=== PATIENT | male | born 1940 | race Caucasian/White ===

== ENCOUNTER → 2017-06-21 | Outpatient (CLI) | payer OTHER ==
[~2017-06-21] MED LIST: ASPEC325 PO; ATEN50TA8 PO; GADAVIST IV PRN; GLC500 PO; LOSA1TAB38 PO; METAMUCIL PO; MULT-506 PO; NITR0.4D6 SL; OMEG10007 PO; TAMS0.4C59 PO; ZCRUNK PO
--- NOTE | 2017-06-21 15:34 | DIAGNOSTIC IMAGING REPORT ---
CERVICAL SPINE MRI HISTORY: WEAKNESS,NUMBNESS,MEMORY CHANGE, TECHNIQUE: Multiplanar multisequence MRI of the cervical spine was performed without the use of contrast. COMPARISON STUDY: None. FINDINGS: No fracture or subluxation. The cervical spine cord demonstrates a normal signal intensity. Prevertebral soft tissues and the C1-C2 interval are intact. Mild disc space at C3-C4, C5-C6, and C6-C7 with small endplate osteophytes. 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 Small hemangioma at T2 is noted. The posterior fossa is unremarkable. C2-C3: No significant central canal or neural foraminal narrowing. C3-C4: Broad-based posterior disc osteophyte complex which abuts but does not significantly deform the anterior cord. There is also severe bilateral neural foraminal narrowing. C4-C5: No central canal or right-sided neural foraminal narrowing. There is moderate left neural foraminal narrowing. C5-C6: Broad-based posterior disc bulge resulting in partial effacement of the anterior thecal sac without cord deformity. There is moderate right and severe left neural foraminal narrowing. C6-C7: Small broad-based posterior disc bulge resulting in partial effacement of the anterior thecal sac without cord deformity. There is moderate bilateral neural foraminal narrowing. C7-T1: No significant central canal or neural foraminal narrowing. IMPRESSION: 1. Multilevel cervical spondylosis as described above with mild central canal narrowing most pronounced at the C3-C4 level. This demonstrates a broad-based posterior disc bulge which abuts but does not deform the anterior cord. 2. Multilevel bilateral neural foraminal narrowing as described above. Electronically signed by: Jose R Vidal M.D. 06/21/2017 3:33 PM Dictated Date/Time: 06/21/2017 3:26 PM
--- NOTE | 2017-06-21 16:33 | DIAGNOSTIC IMAGING REPORT ---
MRI OF THE BRAIN WITHOUT AND WITH IV CONTRAST CLINICAL HISTORY: Weakness, numbness and memory change. COMPARISON STUDY: No previous studies for comparison. TECHNIQUE: Utilizing a 1.5 Solange magnet and dedicated coil, multiplanar, multiecho imaging of the brain was performed pre and postcontrast administration. IV administration of 8.9 mL of Gadavist contrast was uneventful. FINDINGS: There are no foci of restricted diffusion. No acute intracranial hemorrhage, midline shift or mass effect is present. Basilar cisterns are patent. There are no extra-axial collections. Flow-voids in the major intracranial vessels are present. No intracranial masses identified. There is no pathologic enhancement. Note is made of moderate atrophy and scattered white matter T2 hyperintense foci which suggest mild small vessel disease. Calvarial signal is maintained. A small amount of fluid within the right mastoid air cells is noted. There is mild polypoid mucosal thickening of the maxillary sinuses. IMPRESSION: 1. No acute intracranial findings. 2. No intracranial mass or pathologic enhancement. 3. Moderate atrophy and mild small vessel disease. 4. Small amount of fluid within the right mastoid air cells. Electronically signed by: Jimbo Lazo M.D. 06/21/2017 4:32 PM Dictated Date/Time: 06/21/2017 4:27 PM
== END | disposition home or self-care (01) ==
LOC: C.MRI 13:57
DX: R53.1 Weakness (principal); R20.0 Anesthesia of skin; R41.3 Other amnesia; M47.812 Spondylosis without myelopathy or radiculopathy, cervical region

== ENCOUNTER 2023-03-27 18:59 | Inpatient (IN) ==
[2023-03-27] MEDS ORDERED: SODIUM CHLORIDE 0.9% 1,000 ML IV SCH (19:15)
--- NOTE | 2023-03-27 19:18 | Emergency Department Note ---
Impression & Plan Septic shock, Acute UTI, Hematuria, Weakness, Confusion ED Provider Note Provider: Bernard Mendoza MD DATE OF SERVICE: 03/27/2023 CHIEF COMPLAINT: Blood in urine, confusion HISTORY OF PRESENT ILLNESS: Patient is a 82-year-old gentleman history of type 2 diabetes, hypertension, prostate issues presenting via ambulance from [place] where he resides. Patient evidently around 5 PM was noted some hematuria and not to be himself. Patient upon arrival is a bit difficult to get a good history from. Denies any pain currently. Denies any nausea or vomiting. Denies any breathing issues. Guerrero catheter in place upon arrival and appears to be some brownish to slightly dark red urine present but not kamryn bright red blood in Guerrero bag. There is no trauma history reported. Is febrile upon arrival. Unable to tell me if he had dinner yet. Does confirm from our records it appears Dr. Grewal is his urologist. EMS reported the patient recently had a Guerrero catheter placed by urology. later arrives and states that around 4 PM was actually when he started to be bit confused about what was on TV and having some slurred speech and not talking to her right. They were just at the urologist office around 3 PM this afternoon had a Guerrero change at the time by Dr. Grewal. Patient had some hematuria during that evidently during cystoscopy there had inflammation of the prostate. Again around 4 began to be somewhat confused and have speech issues and developed the describes as shaking/rigors. This lasted some time and he felt warm. She reports now he is speaking much better although still a bit off. PAST MEDICAL HISTORY: As noted above MEDICATIONS: Reviewed medications includes aspirin Plavix SOCIAL HISTORY: , lives at [place] currently PHYSICAL EXAM: GENERAL: alert and oriented to person but not a good historian in no acute distress on stretcher Head: normocephalic and atraumatic EYES: No injection, discharge or icterus. PERRL, EOMI. NECK: Trachea midline. Supple. ENT: Mucous membranes pink and moist. LUNGS: Airway patent. No retractions. Breath sounds clear HEART: Regular tachycardic rate and rhythm. No chest wall tenderness ABDOMEN: Soft and non-tender, without guarding or rebound. Guerrero catheter in place with about 50 mL of burgundy urine present without clots noted. SKIN: Acyanotic, warm, dry, without rashes EXTREMITIES: Without swelling, tenderness or deformity NEUROLOGICAL: No focal deficits. No aphasia. No facial droop may be some very slight dysarthria. Tongue midline. Good strength and no pronator drift in the arms. Normal sensation in the arms and legs. Does report due to prior surgery can lift his left leg and really has difficulty lifting the right leg on exam either in the bed. EK bpm sinus tachycardia. No PVC or PAC. No acute ST segment elevation or depression with a QTc of 420 CONTINUOUS CARDIAC MONITORING: was ordered and showed a heart rate of 90s-130s bpm in sinus tachycardia and normal sinus rhythm (satellite project site monitor double counting T waves on auto collected data later improved when changing lead on the monitor performed by myself) 1 view chest x-ray per my interpretation: No evidence of pneumonia or pleural effusion/pulmonary edema. No free under the diaphragm noted. Patient's laboratory studies and imaging reviewed. Differential includes Infection, kidney stone, acute renal failure, sepsis, dehydration, metabolic abnormality, hypo/hyperglycemia, electrolyte disturbance, anemia, hypoxia, cardiac sources, intracerebral event, toxicologic, neurologic, as well as other pathologies. IMPRESSION/MEDICAL DECISION MAKING: Patient not hypoxic. Does not seem to have focal deficits and lower suspicion for CVA. Symptoms started around 4 PM and more than 3 hours now since onset. Hematuria in the setting of recent Guerrero placement as well as use of aspirin Plavix could be from traumatic placement. Not having significant abdominal or flank pain but kidney stone does maintain on the differential. Temperature here is concerning for possible infectious etiology. Fairly benign abdomen on exam but we will complete a CT here to look for possible intra-abdominal or renally related issues such as kidney stone or hydronephrosis/obstruction. Blood work and cultures ordered. Will complete a CT of the head but lower suspicion for CVA given the more generalized symptoms he is experiencing. Do not feel thrombolytics are indicated given this. reported recent Guerrero change in the developing rigors with a fever does relay some concern that he may be transiently bacteremic possibly infected after the Guerrero change. Since this just happened earlier today we will not immediately replace. Will see if there is any obstructive findings on imaging. [id number] blood work shows evidence of significant renal dysfunction. Noncontrast CT scan of the abdomen pelvis ordered. Lactate elevated 3.5. Blood pressure improving with IV fluid boluses here and 3 L normal saline ordered more than 30 mg/kg of body weight. Tylenol ordered for fever. Will give broad- spectrum antibiotics given concerns and Zosyn ordered. Blood cultures have been obtained. Urinalysis returns grossly positive both for blood and likely infection. Chemistries returned with some hyponatremia of 128 again receiving IV fluid for resuscitation here. Creatinine much higher than baseline 3.5 and again receiving fluids. Magnesium somewhat low as well but will not aggressively resuscitate given the tenuous blood pressures. CBC returns with slightly improved anemia 11.7. Platelet count has decreased and is now only 73. Slight leukopenia 4.5 noted. Troponin incidentally noted to be minimally elevated at [address] head and CT abdomen pelvis obtained. Radiology reports reviewed without findings of hydronephrosis or kidney stone. Bladder appears decompressed. CT of the head without reported acute intracranial abnormality. Respiratory viral panel negative. Procalcitonin returns elevated 167. Consistent with severe infection and septic shock picture. Blood pressure continues to be somewhat tenuous while receiving his 3 L of IV fluid resuscitation. Will start on low-dose peripheral norepinephrine for blood pressure support. Has 3 peripheral IVs. Seems consistent likely with sepsis of urinary origin. Again received broad-spectrum Zosyn. Discussed and updated . Discussed with the [facility] hospitalist team for admission. Patient does not appear to be significant encephalopathic and easily awakens when talked to. Will give hydrocortisone given his hypotension and increasing norepinephrine dosing. Lactate slightly improving on repeat of 2.7. Repeat high-sensitivity troponin also trending somewhat improved. Transferred to ICU DIAGNOSIS: Hematuria, septic shock, confusion, acute UTI DISPOSITION: Hospitalist will evaluate Patient was agreeable with this plan. Critical Care I have personally spent 59 minutes of critical care time in the direct management of this patient. This includes bedside care, interpretation of diagnostic studies, and testing, discussion with consultants, patient, and family members, and other required patient management activities. These 59 minutes is in excess of all separately billable procedures. Past Med/Surg History Medical History (Updated 03/27/23 @ 20:27 by Bernard Mendoza M.D.) Diabetic peripheral neuropathy associated with type 2 diabetes mellitus Dyslipidemia Essential hypertension Gait disturbance Other specified myopathies Proximal leg weakness Type 2 diabetes mellitus Social History Smoking Status: Never smoker Second Hand Exposure: No; Do You Dip or Chew Tobacco: No; Hx Alcohol Use: No Hx Substance Use: No Preferred Language: Honduran Current Living Situation: Spouse current occupation: owns [employer] Feels Safe at Home: Yes Allergies Allergies Allergy/AdvReac Type Severity Reaction Status Date / Time atorvastatin Allergy Intermediate muscle Verified 03/28/22 14:59 cramps pregabalin Allergy Intermediate constipatio Verified 03/28/22 14:59 n simvastatin Allergy Intermediate muscle Verified 03/28/22 14:59 cramps Home Meds Home Medications Medication Instructions Recorded Confirmed losartan 100 mg tablet 100 mg PO DAILY 11/30/18 03/27/23 metformin 1,000 mg tablet 1,000 mg PO QDB 11/30/18 03/27/23 nitroglycerin 0.4 mg sublingual 0.4 mg sublingual UD PRN Chest Pain 11/30/18 03/27/23 tablet tamsulosin 0.4 mg capsule 0.4 mg PO DAILY 11/30/18 03/27/23 atenolol 50 mg tablet 50 mg PO Q12 05/22/19 03/27/23 finasteride 5 mg tablet 5 mg PO DAILY 03/28/22 03/27/23 amitriptyline 50 mg tablet 50 mg PO HS 03/27/23 03/27/23 aspirin 81 mg tablet,delayed 81 mg PO DAILY 03/27/23 03/27/23 release clopidogrel 75 mg tablet 75 mg PO DAILY 03/27/23 03/27/23 docusate sodium 100 mg capsule 100 mg PO BID 03/27/23 03/27/23 evolocumab 420 mg/3.5 mL 420 mg subcut MONTHLY 03/27/23 03/27/23 subcutaneous wearable injector (Repatha Pushtronex) ferrous sulfate 325 mg (65 mg 325 mg PO DAILY 03/27/23 03/27/23 iron) tablet gabapentin 300 mg capsule 300 mg PO BIDM 03/27/23 03/27/23 gabapentin 300 mg capsule 600 mg PO HS 03/27/23 03/27/23 hydroxyzine pamoate 50 mg capsule 50 mg PO QID PRN Anxiety 03/27/23 03/27/23 naloxone 4 mg/actuation nasal spray 1 spray intranasal UD PRN Opioid 03/27/23 03/27/23 Overdose ondansetron HCl 4 mg tablet 4 mg PO Q4 PRN nausea/vomiting 03/27/23 03/27/23 oxycodone 5 mg tablet 5 mg PO QID PRN pain scale 7-10 03/27/23 03/27/23 oxymetazoline 0.05 % nasal mist 2 spray intranasal BID PRN Nasal 03/27/23 03/27/23 (Afrin (oxymetazoline)) Congestion pantoprazole 40 mg tablet,delayed 40 mg PO HS 03/27/23 03/27/23 release polyethylene glycol 3350 17 17 g PO DAILY PRN Constipation 03/27/23 03/27/23 gram/dose oral powder (Miralax) sennosides 8.6 mg tablet (senna) 17.2 mg PO HS 03/27/23 03/27/23 sennosides 8.6 mg-docusate sodium 1 tab-cap PO .WITH LUNCH PRN 03/27/23 03/27/23 50 mg tablet (Senna Plus) Constipation sodium chloride 0.65 % nasal spray 1 spray intranasal .EVERY 3 HOURS 03/27/23 03/27/23 aerosol (Saline Mist) W/A Results & Data (ED) Vital Signs Vital Signs - 24 hr 03/27/23 19:08 03/27/23 19:08 03/27/23 19:09 Temperature Temperature Source Pulse Rate 113 H 113 H Pulse Rate from SpO2 Sensor Respiratory Rate 19 Respiratory Effort / Characteristics Respiratory Depth Blood Pressure 83/54 L Blood Pressure Mean 60 Blood Pressure Position Pulse Oximetry Oxygen Delivery Method Sepsis Recent Fever Within 48 Hours Sepsis New/Unexplained Change in Mental Status Sepsis Action Taken by Nursing 03/27/23 19:10 03/27/23 19:15 03/27/23 19:19 Temperature Temperature Source Pulse Rate 112 H 112 H 122 H Pulse Rate from SpO2 Sensor 111 H Respiratory Rate 29 H 30 H 27 H Respiratory Effort / Characteristics Respiratory Depth Blood Pressure Blood Pressure Mean Blood Pressure Position Pulse Oximetry 92 Oxygen Delivery Method Sepsis Recent Fever Within 48 Hours Sepsis New/Unexplained Change in Mental Status Sepsis Action Taken by Nursing 03/27/23 19:19 03/27/23 19:20 03/27/23 19:21 Temperature Temperature Source Pulse Rate 147 H 187 H Pulse Rate from SpO2 Sensor 108 H 111 H Respiratory Rate 20 22 Respiratory Effort / Characteristics Respiratory Depth Blood Pressure 85/46 L Blood Pressure Mean 60 Blood Pressure Position Pulse Oximetry 92 90 Oxygen Delivery Method Sepsis Recent Fever Within 48 Hours Sepsis New/Unexplained Change in Mental Status Sepsis Action Taken by Nursing 03/27/23 19:21 03/27/23 19:22 03/27/23 19:23 Temperature 38.2 C H Temperature Source Oral Pulse Rate 113 H Pulse Rate from SpO2 Sensor Respiratory Rate 29 H Respiratory Effort / Characteristics Non-Labored Spontaneous Respiratory Depth Blood Pressure 77/50 L 83/54 L Blood Pressure Mean 64 63 Blood Pressure Position Semi-fowlers Pulse Oximetry 92 93 Oxygen Delivery Method Room Air Room Air Sepsis Recent Fever Within 48 Hours Yes Sepsis New/Unexplained Change in Mental Status Yes Sepsis Action Taken by Nursing Physician Notified 03/27/23 19:25 03/27/23 19:25 03/27/23 19:27 Temperature Temperature Source Pulse Rate 200 H Pulse Rate from SpO2 Sensor 107 H Respiratory Rate 29 H Respiratory Effort / Characteristics Respiratory Depth Blood Pressure 62/51 L 99/51 L Blood Pressure Mean 54 57 Blood Pressure Position Pulse Oximetry 92 Oxygen Delivery Method Sepsis Recent Fever Within 48 Hours Sepsis New/Unexplained Change in Mental Status Sepsis Action Taken by Nursing 03/27/23 19:27 03/27/23 19:27 03/27/23 19:29 Temperature Temperature Source Pulse Rate 175 H Pulse Rate from SpO2 Sensor 100 H Respiratory Rate 26 H Respiratory Effort / Characteristics Respiratory Depth Blood Pressure 99/51 L 90/68 L Blood Pressure Mean 57 77 Blood Pressure Position Pulse Oximetry 99 Oxygen Delivery Method Sepsis Recent Fever Within 48 Hours Sepsis New/Unexplained Change in Mental Status Sepsis Action Taken by Nursing 03/27/23 19:29 03/27/23 19:30 03/27/23 19:30 Temperature Temperature Source Pulse Rate 180 H 211 H Pulse Rate from SpO2 Sensor 114 H 110 H Respiratory Rate 22 22 Respiratory Effort / Characteristics Respiratory Depth Blood Pressure 93/56 L Blood Pressure Mean 68 Blood Pressure Position Pulse Oximetry 92 90 Oxygen Delivery Method Sepsis Recent Fever Within 48 Hours Sepsis New/Unexplained Change in Mental Status Sepsis Action Taken by Nursing 03/27/23 19:35 03/27/23 19:35 03/27/23 19:40 Temperature Temperature Source Pulse Rate 149 H 134 H Pulse Rate from SpO2 Sensor Respiratory Rate 25 H 24 Respiratory Effort / Characteristics Respiratory Depth Blood Pressure 95/56 L Blood Pressure Mean 73 Blood Pressure Position Pulse Oximetry Oxygen Delivery Method Sepsis Recent Fever Within 48 Hours Sepsis New/Unexplained Change in Mental Status Sepsis Action Taken by Nursing 03/27/23 19:40 03/27/23 19:45 03/27/23 19:45 Temperature Temperature Source Pulse Rate 161 H Pulse Rate from SpO2 Sensor 107 H Respiratory Rate 30 H Respiratory Effort / Characteristics Respiratory Depth Blood Pressure 90/58 L 96/63 L Blood Pressure Mean 64 72 Blood Pressure Position Pulse Oximetry 94 Oxygen Delivery Method Sepsis Recent Fever Within 48 Hours Sepsis New/Unexplained Change in Mental Status Sepsis Action Taken by Nursing 03/27/23 19:50 03/27/23 20:03 03/27/23 20:04 Temperature Temperature Source Oral Pulse Rate 142 H Pulse Rate from SpO2 Sensor 109 H Respiratory Rate 22 Respiratory Effort / Characteristics Respiratory Depth Normal Blood Pressure 78/59 L Blood Pressure Mean 64 Blood Pressure Position Pulse Oximetry 93 Oxygen Delivery Method Sepsis Recent Fever Within 48 Hours Sepsis New/Unexplained Change in Mental Status Sepsis Action Taken by Nursing 03/27/23 20:04 03/27/23 20:05 03/27/23 20:05 Temperature Temperature Source Pulse Rate 159 H 160 H Pulse Rate from SpO2 Sensor 106 H 106 H Respiratory Rate 26 H Respiratory Effort / Characteristics Respiratory Depth Blood Pressure 82/52 L Blood Pressure Mean 61 Blood Pressure Position Pulse Oximetry 95 95 Oxygen Delivery Method Sepsis Recent Fever Within 48 Hours Sepsis New/Unexplained Change in Mental Status Sepsis Action Taken by Nursing 03/27/23 20:07 03/27/23 20:07 03/27/23 20:10 Temperature Temperature Source Pulse Rate 183 H 171 H Pulse Rate from SpO2 Sensor 108 H 106 H Respiratory Rate 23 27 H Respiratory Effort / Characteristics Respiratory Depth Blood Pressure 83/54 L Blood Pressure Mean 60 Blood Pressure Position Pulse Oximetry 96 95 Oxygen Delivery Method Sepsis Recent Fever Within 48 Hours Sepsis New/Unexplained Change in Mental Status Sepsis Action Taken by Nursing 03/27/23 20:10 03/27/23 20:11 03/27/23 20:11 Temperature Temperature Source Pulse Rate 105 H Pulse Rate from SpO2 Sensor 106 H Respiratory Rate 29 H Respiratory Effort / Characteristics Respiratory Depth Blood Pressure 85/48 L 78/50 L Blood Pressure Mean 59 55 Blood Pressure Position Pulse Oximetry 94 Oxygen Delivery Method Sepsis Recent Fever Within 48 Hours Sepsis New/Unexplained Change in Mental Status Sepsis Action Taken by Nursing 03/27/23 20:15 03/27/23 20:20 03/27/23 20:25 Temperature Temperature Source Pulse Rate 103 H 101 H 100 H Pulse Rate from SpO2 Sensor 103 H 101 H 100 H Respiratory Rate 25 H 30 H 25 H Respiratory Effort / Characteristics Respiratory Depth Blood Pressure Blood Pressure Mean Blood Pressure Position Pulse Oximetry 93 92 94 Oxygen Delivery Method Sepsis Recent Fever Within 48 Hours Sepsis New/Unexplained Change in Mental Status Sepsis Action Taken by Nursing 03/27/23 20:30 03/27/23 20:31 03/27/23 20:31 Temperature Temperature Source Pulse Rate 100 H 100 H Pulse Rate from SpO2 Sensor 99 H 100 H Respiratory Rate 28 H 27 H Respiratory Effort / Characteristics Respiratory Depth Blood Pressure 80/52 L Blood Pressure Mean 60 Blood Pressure Position Pulse Oximetry 94 93 Oxygen Delivery Method Sepsis Recent Fever Within 48 Hours Sepsis New/Unexplained Change in Mental Status Sepsis Action Taken by Nursing 03/27/23 20:35 03/27/23 20:35 03/27/23 20:40 Temperature Temperature Source Pulse Rate 99 H Pulse Rate from SpO2 Sensor 99 H Respiratory Rate 35 H Respiratory Effort / Characteristics Respiratory Depth Blood Pressure 83/47 L 73/46 L Blood Pressure Mean 57 55 Blood Pressure Position Pulse Oximetry 92 Oxygen Delivery Method Sepsis Recent Fever Within 48 Hours Sepsis New/Unexplained Change in Mental Status Sepsis Action Taken by Nursing 03/27/23 20:40 03/27/23 20:45 03/27/23 20:45 Temperature Temperature Source Pulse Rate 101 H 100 H Pulse Rate from SpO2 Sensor 101 H 95 H Respiratory Rate 23 26 H Respiratory Effort / Characteristics Respiratory Depth Blood Pressure 69/47 L Blood Pressure Mean 57 Blood Pressure Position Pulse Oximetry 93 92 Oxygen Delivery Method Sepsis Recent Fever Within 48 Hours Sepsis New/Unexplained Change in Mental Status Sepsis Action Taken by Nursing 03/27/23 20:50 03/27/23 20:50 03/27/23 20:55 Temperature Temperature Source Pulse Rate 100 H 100 H Pulse Rate from SpO2 Sensor 103 H 100 H Respiratory Rate 25 H 27 H Respiratory Effort / Characteristics Respiratory Depth Blood Pressure 75/46 L Blood Pressure Mean 54 Blood Pressure Position Pulse Oximetry 90 94 Oxygen Delivery Method Sepsis Recent Fever Within 48 Hours Sepsis New/Unexplained Change in Mental Status Sepsis Action Taken by Nursing 03/27/23 20:55 03/27/23 21:00 03/27/23 21:00 Temperature Temperature Source Pulse Rate 101 H Pulse Rate from SpO2 Sensor 100 H Respiratory Rate 24 Respiratory Effort / Characteristics Respiratory Depth Blood Pressure 78/50 L 78/49 L Blood Pressure Mean 56 60 Blood Pressure Position Pulse Oximetry 92 Oxygen Delivery Method Sepsis Recent Fever Within 48 Hours Sepsis New/Unexplained Change in Mental Status Sepsis Action Taken by Nursing 03/27/23 21:05 03/27/23 21:05 03/27/23 21:10 Temperature Temperature Source Pulse Rate 101 H 101 H Pulse Rate from SpO2 Sensor 100 H 101 H Respiratory Rate 25 H 25 H Respiratory Effort / Characteristics Respiratory Depth Blood Pressure 78/50 L Blood Pressure Mean 56 Blood Pressure Position Pulse Oximetry 91 91 Oxygen Delivery Method Sepsis Recent Fever Within 48 Hours Sepsis New/Unexplained Change in Mental Status Sepsis Action Taken by Nursing 03/27/23 21:10 03/27/23 21:15 03/27/23 21:15 Temperature Temperature Source Pulse Rate 101 H Pulse Rate from SpO2 Sensor 100 H Respiratory Rate 24 Respiratory Effort / Characteristics Respiratory Depth Blood Pressure 83/49 L 83/49 L Blood Pressure Mean 56 55 Blood Pressure Position Pulse Oximetry 91 Oxygen Delivery Method Sepsis Recent Fever Within 48 Hours Sepsis New/Unexplained Change in Mental Status Sepsis Action Taken by Nursing 03/27/23 21:20 03/27/23 21:20 03/27/23 21:25 Temperature Temperature Source Pulse Rate 102 H Pulse Rate from SpO2 Sensor 102 H Respiratory Rate 26 H Respiratory Effort / Characteristics Respiratory Depth Blood Pressure 81/48 L 75/47 L Blood Pressure Mean 59 51 Blood Pressure Position Pulse Oximetry 95 Oxygen Delivery Method Sepsis Recent Fever Within 48 Hours Sepsis New/Unexplained Change in Mental Status Sepsis Action Taken by Nursing 03/27/23 21:25 03/27/23 21:30 03/27/23 21:30 Temperature Temperature Source Pulse Rate 100 H 102 H Pulse Rate from SpO2 Sensor 100 H 101 H Respiratory Rate 27 H 19 Respiratory Effort / Characteristics Respiratory Depth Blood Pressure 86/49 L Blood Pressure Mean 56 Blood Pressure Position Pulse Oximetry 94 93 Oxygen Delivery Method Sepsis Recent Fever Within 48 Hours Sepsis New/Unexplained Change in Mental Status Sepsis Action Taken by Nursing 03/27/23 21:35 03/27/23 21:35 03/27/23 21:40 Temperature Temperature Source Pulse Rate 101 H 100 H Pulse Rate from SpO2 Sensor 101 H 100 H Respiratory Rate 26 H 29 H Respiratory Effort / Characteristics Respiratory Depth Blood Pressure 87/50 L Blood Pressure Mean 56 Blood Pressure Position Pulse Oximetry 91 94 Oxygen Delivery Method Sepsis Recent Fever Within 48 Hours Sepsis New/Unexplained Change in Mental Status Sepsis Action Taken by Nursing 03/27/23 21:40 03/27/23 21:41 03/27/23 21:41 Temperature Temperature Source Pulse Rate 100 H Pulse Rate from SpO2 Sensor 100 H Respiratory Rate 23 Respiratory Effort / Characteristics Respiratory Depth Blood Pressure 73/46 L 73/46 L Blood Pressure Mean 51 52 Blood Pressure Position Pulse Oximetry 94 Oxygen Delivery Method Sepsis Recent Fever Within 48 Hours Sepsis New/Unexplained Change in Mental Status Sepsis Action Taken by Nursing 03/27/23 21:45 03/27/23 21:45 03/27/23 21:50 Temperature Temperature Source Pulse Rate 100 H 102 H Pulse Rate from SpO2 Sensor 99 H 101 H Respiratory Rate 27 H 28 H Respiratory Effort / Characteristics Respiratory Depth Blood Pressure 79/48 L Blood Pressure Mean 52 Blood Pressure Position Pulse Oximetry 95 96 Oxygen Delivery Method Sepsis Recent Fever Within 48 Hours Sepsis New/Unexplained Change in Mental Status Sepsis Action Taken by Nursing 03/27/23 21:50 03/27/23 21:55 03/27/23 21:55 Temperature Temperature Source Pulse Rate 102 H Pulse Rate from SpO2 Sensor 100 H Respiratory Rate 34 H Respiratory Effort / Characteristics Respiratory Depth Blood Pressure 98/54 L 94/53 L Blood Pressure Mean 69 59 Blood Pressure Position Pulse Oximetry 93 Oxygen Delivery Method Sepsis Recent Fever Within 48 Hours Sepsis New/Unexplained Change in Mental Status Sepsis Action Taken by Nursing 03/27/23 22:00 03/27/23 22:00 03/27/23 22:05 Temperature Temperature Source Pulse Rate 100 H 101 H Pulse Rate from SpO2 Sensor 100 H 101 H Respiratory Rate 28 H 31 H Respiratory Effort / Characteristics Respiratory Depth Blood Pressure 90/53 L Blood Pressure Mean 61 Blood Pressure Position Pulse Oximetry 95 94 Oxygen Delivery Method Sepsis Recent Fever Within 48 Hours Sepsis New/Unexplained Change in Mental Status Sepsis Action Taken by Nursing 03/27/23 22:05 03/27/23 22:10 Temperature Temperature Source Pulse Rate 101 H Pulse Rate from SpO2 Sensor 100 H Respiratory Rate 34 H Respiratory Effort / Characteristics Respiratory Depth Blood Pressure 93/51 L Blood Pressure Mean 61 Blood Pressure Position Pulse Oximetry 96 Oxygen Delivery Method Sepsis Recent Fever Within 48 Hours Sepsis New/Unexplained Change in Mental Status Sepsis Action Taken by Nursing Laboratory Data 03/27/23 19:15 03/27/23 19:15 Lab Results 03/27/23 03/27/23 03/27/23 Range/Units 19:15 19:21 19:28 WBC 4.58 L (4.8-10.8) K/ul RBC 3.95 L (4.70-6.10) M/uL Hgb 11.7 L (14.0-18.0) g/dl POC Hgb 11.6 L (14.0-18.0) g/dl Hct 35.2 L (42.0-52.0) % POC Hct 34 L (42-52) % MCV 89.1 (80.0-100.0) fL MCH 29.6 (25.0-34.0) pg MCHC 33.2 (32.0-36.0) g/dL RDW Std Deviation 50.3 H (36.4-46.3) fL RDW Coeff of Indira 15.2 H (11.5-14.5) % Plt Count 73 L (130-400) K/uL MPV 11.0 (9.4-12.4) fL Immature Gran % (Auto) 0.2 % Neut % (Auto) 89.4 % Lymph % (Auto) 8.7 % Taliaferro % (Auto) 1.5 % Eos % (Auto) 0.0 % Baso % (Auto) 0.2 % Neut # (Auto) 4.09 (1.40-6.50) K/uL Lymph # (Auto) 0.40 L (1.20-3.40) K/uL Taliaferro # (Auto) 0.07 L (0.11-0.59) K/uL Eos # (Auto) 0.00 (0.00-0.50) K/uL Baso # (Auto) 0.01 (0.00-0.20) K/uL Immature Gran # (Auto) 0.01 (0.01-0.20) K/uL Toxic Vacuolation 1+ Dohle Bodies 1+ Platelet Estimate Decreased L (Normal) Polychromasia 1+ PT 11.5 (9.0-12.0) Seconds INR 1.1 (0.9-1.1) POC Sodium 129 L (135-144) mmol/L Sodium 128 L (136-145) mmol/L POC Potassium 4.5 (3.3-5.0) mmol/L Potassium 4.4 (3.5-5.1) mmol/L POC Chloride 97 L (101-112) mmol/L Chloride 96 L (98-107) mmol/L Carbon Dioxide 19 L (21-32) mmol/L POC Total CO2 20 L (24-31) mmol/L Anion Gap 13 H (3-11) POC Anion Gap 18.0 (16-25) mmol/L POC BUN 40 H (7-18) mg/dl BUN 48 H (6-23) mg/dl Creatinine 3.53 H (0.6-1.4) mg/dl POC Creatinine 3.9 H (0.6-1.3) mg/dl Est Cr Clr Drug Dosing 19.2 ml/min Est GFR ( Amer) 17.9 ml/min Est GFR (Non-Af Amer) 15.4 ml/min BUN/Creatinine Ratio 13.6 (10-20) Glucose 167 H (70-99(Fasting)) mg/dl POC Glucose (other) 173 H (70-99) mg/dl Osmolality (280-300) mOsm/kg Lactate 3.5 H* (0.4-2.0) mmol/L Calcium 8.5 L (8.6-10.3) mg/dl POC Ioniz Calcium Robert 1.09 L (1.12-1.32) mmol/l Magnesium 1.2 L (1.7-2.4) mg/dl Total Bilirubin 2.6 H (0.2-1.0) mg/dl AST 27 (13-39) U/L ALT 21 (7-52) U/L Alkaline Phosphatase 135 H (34-104) U/L Troponin I High Sens 28.1 H (0-20) pg/ml Total Protein 6.9 (6.0-8.3) gm/dl Albumin 3.7 (3.4-5.0) gm/dl Globulin 3.2 (2.5-4.0) gm/dl Albumin/Globulin Ratio 1.2 (0.9-2) Procalcitonin 167.43 H (0-0.5) ng/ml TSH 8.492 H (0.300-4.500) uIu/ml Free T4 1.20 (0.61-1.60) ng/dl Urine Color Brown Urine Appearance Turbid A (Clear) Urine pH 5.5 (4.5-7.5) Ur Specific [place] 1.025 (1.000-1.030) Urine Protein 3+ H (Negative) Urine Glucose (UA) Trace H (Negative) Urine Ketones Trace H (Negative) Urine Blood 3+ H (Negative) Urine Nitrite Positive A (Negative) Urine Bilirubin 2+ H (Negative) Urine Urobilinogen Negative (Negative) Ur Leukocyte Esterase 3+ H (Negative) Urine RBC >30 H (0-4) /hpf Urine WBC >30 H (0-5) /hpf Ur Epithelial Cells 0-5 (0-5) /lpf Amorphous Sediment Present A (None Prsent) Urine Bacteria 2+ H (Negative) Hyaline Casts 0-5 (0-5) /lpf Urine Osmolality Cancelled Ur Random Sodium Cancelled Adenovirus (PCR) Not Detected (NotDetected) B. pertussis DNA (PCR) Not Detected (NotDetected) B.parapertussis DNA PCR Not Detected (NotDetected) C. pneumoniae DNA (PCR) Not Detected (NotDetected) Coronavirus OC43 (PCR) Not Detected (NotDetected) Coronavirus HKU1 (PCR) Not Detected (NotDetected) Coronavirus 229E (PCR) Not Detected (NotDetected) SARS-CoV-2 (PCR) Not Detected (NotDetected) Coronavirus NL63 (PCR) Not Detected (NotDetected) Human Metapneumovir PCR Not Detected (NotDetected) Influenza Type A (PCR) Not Detected (NotDetected) Influenza Type B (PCR) Not Detected (NotDetected) M. pneumoniae (PCR) Not Detected (NotDetected) Parainfluenza 1 (PCR) Not Detected (NotDetected) Parainfluenza 2 (PCR) Not Detected (NotDetected) Parainfluenza 3 (PCR) Not Detected (NotDetected) Parainfluenza 4 (PCR) Not Detected (NotDetected) RSV (PCR) Not Detected (NotDetected) Entero/Rhino (PCR) Not Detected (NotDetected) 03/27/23 03/27/23 Range/Units 21:09 21:48 WBC (4.8-10.8) K/ul RBC (4.70-6.10) M/uL Hgb (14.0-18.0) g/dl POC Hgb (14.0-18.0) g/dl Hct (42.0-52.0) % POC Hct (42-52) % MCV (80.0-100.0) fL MCH (25.0-34.0) pg MCHC (32.0-36.0) g/dL RDW Std Deviation (36.4-46.3) fL RDW Coeff of Indira (11.5-14.5) % Plt Count (130-400) K/uL MPV (9.4-12.4) fL Immature Gran % (Auto) % Neut % (Auto) % Lymph % (Auto) % [place] % (Auto) % Eos % (Auto) % Baso % (Auto) % Neut # (Auto) (1.40-6.50) K/uL Lymph # (Auto) (1.20-3.40) K/uL [place] # (Auto) (0.11-0.59) K/uL Eos # (Auto) (0.00-0.50) K/uL Baso # (Auto) (0.00-0.20) K/uL Immature Gran # (Auto) (0.01-0.20) K/uL Toxic Vacuolation Dohle Bodies Platelet Estimate (Normal) Polychromasia PT (9.0-12.0) Seconds INR (0.9-1.1) POC Sodium (135-144) mmol/L Sodium (136-145) mmol/L POC Potassium (3.3-5.0) mmol/L Potassium (3.5-5.1) mmol/L POC Chloride (101-112) mmol/L Chloride (98-107) mmol/L Carbon Dioxide (21-32) mmol/L POC Total CO2 (24-31) mmol/L Anion Gap (3-11) POC Anion Gap (16-25) mmol/L POC BUN (7-18) mg/dl BUN (6-23) mg/dl Creatinine (0.6-1.4) mg/dl POC Creatinine (0.6-1.3) mg/dl Est Cr Clr Drug Dosing ml/min Est GFR ( Amer) ml/min Est GFR (Non-Af Amer) ml/min BUN/Creatinine Ratio (10-20) Glucose (70-99(Fasting)) mg/dl POC Glucose (other) (70-99) mg/dl Osmolality 286 (280-300) mOsm/kg Lactate 2.7 H* (0.4-2.0) mmol/L Calcium (8.6-10.3) mg/dl POC Ioniz Calcium Robert (1.12-1.32) mmol/l Magnesium (1.7-2.4) mg/dl Total Bilirubin (0.2-1.0) mg/dl AST (13-39) U/L ALT (7-52) U/L Alkaline Phosphatase (34-104) U/L Troponin I High Sens 16.7 D (0-20) pg/ml Total Protein (6.0-8.3) gm/dl Albumin (3.4-5.0) gm/dl Globulin (2.5-4.0) gm/dl Albumin/Globulin Ratio (0.9-2) Procalcitonin (0-0.5) ng/ml TSH (0.300-4.500) uIu/ml Free T4 (0.61-1.60) ng/dl Urine Color Urine Appearance (Clear) Urine pH (4.5-7.5) Ur Specific [place] (1.000-1.030) Urine Protein (Negative) Urine Glucose (UA) (Negative) Urine Ketones (Negative) Urine Blood (Negative) Urine Nitrite (Negative) Urine Bilirubin (Negative) Urine Urobilinogen (Negative) Ur Leukocyte Esterase (Negative) Urine RBC (0-4) /hpf Urine WBC (0-5) /hpf Ur Epithelial Cells (0-5) /lpf Amorphous Sediment (None Prsent) Urine Bacteria (Negative) Hyaline Casts (0-5) /lpf Urine Osmolality 214 L Ur Random Sodium 17 Adenovirus (PCR) (NotDetected) B. pertussis DNA (PCR) (NotDetected) B.parapertussis DNA PCR (NotDetected) C. pneumoniae DNA (PCR) (NotDetected) Coronavirus OC43 (PCR) (NotDetected) Coronavirus HKU1 (PCR) (NotDetected) Coronavirus 229E (PCR) (NotDetected) SARS-CoV-2 (PCR) (NotDetected) Coronavirus NL63 (PCR) (NotDetected) Human Metapneumovir PCR (NotDetected) Influenza Type A (PCR) (NotDetected) Influenza Type B (PCR) (NotDetected) M. pneumoniae (PCR) (NotDetected) Parainfluenza 1 (PCR) (NotDetected) Parainfluenza 2 (PCR) (NotDetected) Parainfluenza 3 (PCR) (NotDetected) Parainfluenza 4 (PCR) (NotDetected) RSV (PCR) (NotDetected) Entero/Rhino (PCR) (NotDetected) Administered Medications Norepinephrine Bitartrate (Levophed/D5w) 4 mg in 250 mls @ 102.038 mls/hr IV .Q2H27M BRITTANI; Protocol Stop: 04/26/23 20:14 Last Titration: 03/27/23 21:46 Dose: 0.3 mcg/kg/min, 102 mls/hr Documented By: Titration: 03/27/23 21:27 Dose: 0.25 mcg/kg/min, 85 mls/hr Documented By: Titration: 03/27/23 21:08 Dose: 0.2 mcg/kg/min, 68 mls/hr Documented By: Titration: 03/27/23 20:53 Dose: 0.15 mcg/kg/min, 51 mls/hr Documented By: Titration: 03/27/23 20:47 Dose: 0.1 mcg/kg/min, 34 mls/hr Documented By: Titration: 03/27/23 20:38 Dose: 0.08 mcg/kg/min, 27.2 mls/hr Documented By: Admin: 03/27/23 20:26 Dose: 0.05 mcg/kg/min, 17 mls/hr Documented By: AB Co-signed By: DANN Magnesium Sulfate/Dextrose (Magnesium Sulfate / D5w) 1 gm in 100 mls @ 50 mls/hr IV Q2H BRITTANI Stop: 03/28/23 02:44 Last Admin: 03/27/23 20:53 Dose: 50 mls/hr Documented By: AB Sodium Chloride (Nss) 1,000 mls @ 999 mls/hr IV .Q1H1M ONE Stop: 03/27/23 23:01 Last Admin: 03/27/23 22:09 Dose: 999 mls/hr Documented By: AB Discontinued Medications Hydrocortisone Sodium Succinate (Hydrocortisone Sod Succinate 100 Mg/2 Ml Vial) 100 mg IV NOW STA Stop: 03/27/23 21:44 Last Admin: 03/27/23 22:06 Dose: 100 mg Documented By: Sodium Chloride (Nss) 1,000 mls @ 999 mls/hr IV .Q1H1M BRITTANI Stop: 03/27/23 20:15 Last Infusion: 03/27/23 20:39 Dose: Infused Documented By: Admin: 03/27/23 19:22 Dose: 999 mls/hr Documented By: ABRAM Sodium Chloride (Nss) 1,000 mls @ 999 mls/hr IV .Q1H1M ONE Stop: 03/27/23 20:15 Last Infusion: 03/27/23 21:12 Dose: Infused Documented By: Admin: 03/27/23 20:04 Dose: 999 mls/hr Documented By: Infusion: 03/27/23 20:04 Dose: Infused Documented By: Admin: 03/27/23 19:22 Dose: 999 mls/hr Documented By: ABRAM Acetaminophen (Ofirmev) 1,000 mg in 100 mls @ 400 mls/hr IV NOW STA Stop: 03/27/23 20:02 Last Infusion: 03/27/23 20:30 Dose: Infused Documented By: Admin: 03/27/23 20:04 Dose: 400 mls/hr Documented By: OLU Sodium Chloride (Nss) 1,000 mls @ 999 mls/hr IV .Q1H1M ONE Stop: 03/27/23 20:48 Last Infusion: 03/27/23 22:04 Dose: Infused Documented By: Admin: 03/27/23 20:30 Dose: 999 mls/hr Documented By: Piperacillin Sod/Tazobactam Sod (Zosyn) 4.5 gm in 100 mls @ 200 mls/hr IV NOW ONE Stop: 03/27/23 20:20 Last Infusion: 03/27/23 20:39 Dose: Infused Documented By: Admin: 03/27/23 20:04 Dose: 200 mls/hr Documented By: OLU Imaging Data Radiologist's Impression: Head CT 03/27/23 19:14 Exam(s): CT HEAD Without Contrast EXAM: CT Head Without Intravenous Contrast CLINICAL HISTORY: Reason for exam: ams. TECHNIQUE: Axial computed tomography images of the head/brain without intravenous contrast. CTDI is 35.51 mGy and DLP is 624.41 mGy-cm. Automated exposure control was utilized for the study. A dose lowering technique was utilized adhering to the principles of ALARA. COMPARISON: No relevant prior studies available. 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 No hemorrhage. Ventricles: Unremarkable. No ventriculomegaly. Bones/joints: Unremarkable. No acute fracture. Soft tissues: Unremarkable. Sinuses: Unremarkable as visualized. No acute sinusitis. Mastoid air cells: Unremarkable as visualized. No mastoid effusion. IMPRESSION: No acute intracranial abnormality Electronically signed by: Anuj Chan MD 03/27/23 20:57 PM Abdomen/Pelvis CT 03/27/23 19:23 Exam(s): CT ABDOMEN + PELVIS Without Contrast EXAM: CT Abdomen and Pelvis Without Intravenous Contrast CLINICAL HISTORY: Reason for exam: ams, hematuria, kidney disfunction, fever. TECHNIQUE: Axial computed tomography images of the abdomen and pelvis without intravenous contrast. CTDI is antibiotic 35.51 mGy and DLP is 1213.9 mGy- cm. Automated exposure control was utilized for the study. A dose lowering technique was utilized adhering to the principles of ALARA. COMPARISON: 08/17/2008 FINDINGS: Lung bases: Subsegmental atelectasis seen in the left lung base. ABDOMEN: Liver: Fatty liver. Gallbladder and bile ducts: Unremarkable. No calcified stones. No ductal dilation. Pancreas: Unremarkable. No ductal dilation. Spleen: Unremarkable. No splenomegaly. Adrenals: There is stable 2.1 cm left adrenal nodule with density measurement of 20 HU. Kidneys and ureters: Unremarkable. No obstructing stones. No hydronephrosis. Stomach and bowel: Unremarkable. No obstruction. No mucosal thickening. PELVIS: Appendix: No findings to suggest acute appendicitis. Bladder: Foleys catheter bulb seen in the decompressed urinary bladder lumen. No stones. Reproductive: Unremarkable as visualized. ABDOMEN and PELVIS: Intraperitoneal space: Unremarkable. No free air. No significant fluid collection. Bones/joints: There is left hip arthroplasty. No acute fracture. No dislocation. There is hemangioma seen in the T10 vertebral body. Vasculature: Unremarkable. No abdominal aortic aneurysm. Lymph nodes: Unremarkable. No enlarged lymph nodes. IMPRESSION: No acute findings in the abdomen or pelvis. Electronically signed by: Anuj Chan MD 03/27/23 20:40 PM Discharge Plan Visit Data Chief Complaint: Altered Mental Status Stated Complaint: AMS, Confusion, Hematuria ED Provider: Bernard Mendoza Discharge Problem: Septic shock, Acute UTI, Hematuria, Weakness, Confusion Discharge Instructions Interventions: ED Discharge Assessment Last Done: 03/27/23 22:26 Forms Stand Alone Forms: My [facility] Prescriptions Prescriptions: No Action losartan 100 mg tablet 100 mg PO DAILY nitroglycerin 0.4 mg tablet, sublingual 0.4 mg SL UD PRN (Reason: Chest Pain) Rx Instructions: 1 tablet under tongue as needed for chest pain.-may repeat dose every 5 minutes for up to 3 doses. if no relief after 3rd dose,call 911 metformin 1,000 mg tablet 1,000 mg PO QDB tamsulosin 0.4 mg capsule 0.4 mg PO DAILY atenolol 50 mg tablet 50 mg PO Q12 finasteride 5 mg tablet 5 mg PO DAILY clopidogrel 75 mg tablet 75 mg PO DAILY aspirin 81 mg Tablet,Delayed Release (Dr/Ec) 81 mg PO DAILY amitriptyline 50 mg tablet 50 mg PO HS gabapentin 300 mg capsule 300 mg PO BIDM Rx Instructions: take with breakfast and lunch ferrous sulfate 325 mg (65 mg iron) Tablet 325 mg PO DAILY docusate sodium 100 mg Capsule 100 mg PO BID pantoprazole 40 mg Tablet,Delayed Release (Dr/Ec) 40 mg PO HS gabapentin 300 mg capsule 600 mg PO HS sennosides [senna] 8.6 mg Tablet 17.2 mg PO HS Repatha Pushtronex 420 mg/3.5 mL wearable injector 420 mg SUBCUT MONTHLY Rx Instructions: inject 1 syringe on the 1st monthly Saline Mist 0.65 % Aerosol,[place] 1 spray intranasal .EVERY 3 HOURS W/A Rx Instructions: 1 spray each nostril every 3 hours while awake for congestion ondansetron HCl 4 mg Tablet 4 mg PO Q4 PRN (Reason: nausea/vomiting) polyethylene glycol 3350 [Miralax] 17 gram/dose Powder 17 g PO DAILY PRN (Reason: Constipation) Afrin (oxymetazoline) 0.05 % Mist 2 spray INTRANASAL BID PRN (Reason: Nasal Congestion) sennosides-docusate sodium [Senna Plus] 8.6-50 mg Tablet 1 tab-cap PO .WITH LUNCH PRN (Reason: Constipation) oxycodone 5 mg Tablet 5 mg PO QID PRN (Reason: pain scale 7-10) naloxone 4 mg/actuation spray,non-aerosol 1 spray INTRANASAL UD PRN (Reason: Opioid Overdose) Rx Instructions: instill 1 spray into nostril as needed for opiod overdose-may repeat dose every 3 minutes forj no response ofr relapse, alternate nostrils,call 911 hydroxyzine pamoate 50 mg Capsule 50 mg PO QID PRN (Reason: Anxiety) Referrals Referrals: Jimmy Gama MD [Primary Care Provider] -
[2023-03-27] MEDS: SODIUM CHLORIDE 0.9% 1,000 ML IV ONE ×2 (19:22→20:04)
[2023-03-27 19:34] LABS: iSTAT Creatinine 3.9 mg/dl (0.6-1.3); iSTAT Hemoglobin 11.6 g/dl (14.0-18.0); iSTAT Ionized Calcium 1.09 mmol/l (1.12-1.32); iSTAT Potassium 4.5 mmol/L (3.3-5.0)
[2023-03-27] MEDS ORDERED: SODIUM CHLORIDE 0.9% 1,000 ML IV ONE ×2 (19:48→22:01)
[2023-03-27] MEDS ORDERED: ACETAMINOPHEN 1,000 MG/100 ML VIAL IV STA (19:48)
[2023-03-27] MEDS ORDERED: PIPERACILLIN/TAZOBACTAM 4.5 GM/100 ML BAG IV ONE (19:51)
[2023-03-27 19:54] LABS: Appearance Urine Turbid (Clear); Bilirubin Urine 2+ (Negative); Blood Urine 3+ (Negative); Color Urine Brown; Glucose Urine UA Trace (Negative); Ketones Urine Trace (Negative); Leukocyte Esterase Urine 3+ (Negative); Nitrite Urine Positive (Negative); Protein Urine 3+ (Negative); Specific Gravity Urine 1.025 (1.000-1.030); Urobilinogen Urine Negative (Negative); pH Urine 5.5 (4.5-7.5)
[2023-03-27 20:10] LABS: Albumin Globulin Ratio 1.2 (0.9-2); Albumin Level 3.7 gm/dl (3.4-5.0); BUN Creatinine Ratio 13.6 (10-20); Bilirubin,Total 2.6 mg/dl (0.2-1.0); Calcium 8.5 mg/dl (8.6-10.3); Creatinine Clr Calc Pharmacy 19.2 ml/min; Est GFR (African American) 17.9 ml/min; Est GFR (Non-African American) 15.4 ml/min; Globulin 3.2 gm/dl (2.5-4.0); Magnesium 1.2 mg/dl (1.7-2.4); Potassium 4.4 mmol/L (3.5-5.1); Total Protein 6.9 gm/dl (6.0-8.3)
[2023-03-27] MEDS ORDERED: STAT IV Infusion **Titration per Protocol STA (20:15)
[2023-03-27 20:16] LABS: Troponin I High Sensitivity 28.1 pg/ml (0-20)
[2023-03-27 20:18] LABS: INR 1.1 (0.9-1.1); Prothrombin Time 11.5 Seconds (9.0-12.0)
[2023-03-27 20:19] LABS: RBC Urine >30 /hpf (0-4)
[2023-03-27 20:19] LABS: Basophils # (auto) 0.01 K/uL (0.00-0.20); Basophils % (auto) 0.2 %; Dohle Bodies 1+; Hematocrit (blood only) 35.2 % (42.0-52.0); Hemoglobin 11.7 g/dl (14.0-18.0); Immature Granulocytes # (auto) 0.01 K/uL (0.01-0.20); Immature Granulocytes % (auto) 0.2 %; Lymphocytes % (auto) 8.7 %; Mean Corpuscular Hemoglobin 29.6 pg (25.0-34.0); Mean Corpuscular Hgb Conc 33.2 g/dL (32.0-36.0); Mean Corpuscular Volume 89.1 fL (80.0-100.0); Monocytes # (auto) 0.07 K/uL (0.11-0.59); Monocytes % (auto) 1.5 %; Neutrophils # (auto) 4.09 K/uL (1.40-6.50); Neutrophils % (auto) 89.4 %; Platelet Count 73 K/uL (130-400); Platelet Estimate Decreased (Normal); Polychromasia 1+; RDW Coefficient of Variation 15.2 % (11.5-14.5); RDW Standard Deviation 50.3 fL (36.4-46.3); Red Blood Count 3.95 M/uL (4.70-6.10); Toxic Vacuolation 1+; White Blood Count 4.58 K/ul (4.8-10.8)
[2023-03-27 20:20] LABS: Bacteria Urine 2+ (Negative); WBC Urine >30 /hpf (0-5)
[2023-03-27 20:23] LABS: Amorphous Sediment Urine Present (None Prsent); Epithelial Cell Urine 0-5 /lpf (0-5); Hyaline Casts Urine 0-5 /lpf (0-5)
[2023-03-27 20:25] LABS: Thyroid Stimulating Hormone 8.492 uIu/ml (0.300-4.500)
[2023-03-27] MEDS: NOREPINEPHRINE/D5W 4 MG/250 ML PLCT IV SCH ×2 (20:26→23:17)
[2023-03-27 20:37] LABS: Adenovirus PCR Not Detected (NotDetected); Bordetella parapertussis PCR Not Detected (NotDetected); Bordetella pertussis PCR Not Detected (NotDetected); Chlamydia pneumoniae PCR Not Detected (NotDetected); Coronavirus 229E PCR Not Detected (NotDetected); Coronavirus CoV-2 (COVID19)PCR Not Detected (NotDetected); Coronavirus HKU1 PCR Not Detected (NotDetected); Coronavirus NL63 PCR Not Detected (NotDetected); Coronavirus OC43PCR Not Detected (NotDetected); Human Metapneumovirus PCR Not Detected (NotDetected); Influenza A PCR Not Detected (NotDetected); Influenza B PCR Not Detected (NotDetected); Mycoplasma pneumoniae PCR Not Detected (NotDetected); Parainfluenza Virus 1 PCR Not Detected (NotDetected); Parainfluenza Virus 2 PCR Not Detected (NotDetected); Parainfluenza Virus 3 PCR Not Detected (NotDetected); Parainfluenza Virus 4 PCR Not Detected (NotDetected); Respiratory Syncytial VirusPCR Not Detected (NotDetected); Rhinovirus/Enterovirus PCR Not Detected (NotDetected)
--- NOTE | 2023-03-27 20:41 | CT Scan Report ---
Exam(s): CT ABDOMEN + PELVIS Without Contrast EXAM: CT Abdomen and Pelvis Without Intravenous Contrast CLINICAL HISTORY: Reason for exam: ams, hematuria, kidney disfunction, fever. TECHNIQUE: Axial computed tomography images of the abdomen and pelvis without intravenous contrast. CTDI is antibiotic 35.51 mGy and DLP is 1213.9 mGy- cm. Automated exposure control was utilized for the study. A dose lowering technique was utilized adhering to the principles of ALARA. COMPARISON: 08/17/2008 FINDINGS: Lung bases: Subsegmental atelectasis seen in the left lung base. ABDOMEN: Liver: Fatty liver. Gallbladder and bile ducts: Unremarkable. No calcified stones. No ductal dilation. Pancreas: Unremarkable. No ductal dilation. Spleen: Unremarkable. No splenomegaly. Adrenals: There is stable 2.1 cm left adrenal nodule with density measurement of 20 HU. Kidneys and ureters: Unremarkable. No obstructing stones. No hydronephrosis. Stomach and bowel: Unremarkable. No obstruction. No mucosal thickening. PELVIS: Appendix: No findings to suggest acute appendicitis. Bladder: Foleys catheter bulb seen in the decompressed urinary bladder lumen. No stones. Reproductive: Unremarkable as visualized. ABDOMEN and PELVIS: Intraperitoneal space: Unremarkable. No free air. No significant fluid collection. Bones/joints: There is left hip arthroplasty. No acute fracture. No dislocation. There is hemangioma seen in the T10 vertebral body. Vasculature: Unremarkable. No abdominal aortic aneurysm. Lymph nodes: Unremarkable. No enlarged lymph nodes. IMPRESSION: No acute findings in the abdomen or pelvis. Electronically signed by: Anuj Chan MD 03/27/23 20:40 PM
[2023-03-27] MEDS: MAGNESIUM SULFATE / D5W 1 GM/100 ML BAG IV SCH ×2 (20:53→23:05)
--- NOTE | 2023-03-27 20:59 | CT Scan Report ---
Exam(s): CT HEAD Without Contrast EXAM: CT Head Without Intravenous Contrast CLINICAL HISTORY: Reason for exam: ams. TECHNIQUE: Axial computed tomography images of the head/brain without intravenous contrast. CTDI is 35.51 mGy and DLP is 624.41 mGy-cm. Automated exposure control was utilized for the study. A dose lowering technique was utilized adhering to the principles of ALARA. COMPARISON: No relevant prior studies available. 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 No hemorrhage. Ventricles: Unremarkable. No ventriculomegaly. Bones/joints: Unremarkable. No acute fracture. Soft tissues: Unremarkable. Sinuses: Unremarkable as visualized. No acute sinusitis. Mastoid air cells: Unremarkable as visualized. No mastoid effusion. IMPRESSION: No acute intracranial abnormality Electronically signed by: Anuj Chan MD 03/27/23 20:57 PM
[2023-03-27 21:01] LABS: T4 Free Thyroxine 1.2 ng/dl (0.61-1.60)
[2023-03-27] MEDS ORDERED: HYDROCORTISONE SOD SUCCINATE 100 MG/2 ML VIAL IV STA (21:43)
--- NOTE | 2023-03-27 22:00 | History & Physical Report ---
Date of Service March 27, 2023 Assessment & Plan (1) Septic shock: Plan: SIRS plus hypotension plus ARF plus lactic acidosis plus encephalopathy plus thrombocytopenia Secondary to complicated UTI hx BPH with chronic indwelling Guerrero catheter since left hip fracture surgery last 01/2023 Recent instrumentation chronic diastolic heart failure (EF 55 to 59%, TTE 2018), patient on the dry side hx CAD status post stent hyperlipidemia/statin intolerance JASPAL status post surgery DM2 on oral medications, well-controlled as of recent hemoglobin A1c of 6.3 last September 2022 chronic anemia, stable hemoglobin, postop hemoglobin 9-10 from review of records past tobacco abuse ICU given current pressor Rx CS, Cefepime IVF, follow lactic acid Appropriate to hold home BP meds for now given hypotension Appropriate to hold home narcotics and neuropsychotropic medications until patient mentation back to baseline. Appropriate to hold home antiplatelet Rx given hematuria and new onset thrombocytopenia ISS BG goal 1 40-1 80, update hemoglobin A1c DVT prophylaxis. SCDs Re: Hematuria/thrombocytopenia Full code Patient family requesting updates providers. Ms. Ella Pedraza (), contact #[phone] Ms. Fauzia Lynne (daughter), contact #[phone] Total critical care time was 45 minutes. Text document was generated using [employer] voice recognition software. It may contain grammatical or spelling errors. Kindly contact undersigned for clarification of any documentation item in question. History of Present Illness Chief Complaint: Hematuria, confusion Primary Care Provider: Jimmy Gama MD History obtained from patient, family, and records. Limited history from patient secondary to episodic confusion. Medical history significant for chronic diastolic heart failure (EF 55 to 59%, TTE 2018), CAD status post stent, HTN, hyperlipidemia/statin intolerance, JASPAL status post surgery, DM2 on oral medications, chronic anemia (baseline hemoglobin 9-10 ), BPH, past tobacco abuse. Patient sustained left hip fracture secondary to fall while visiting a family member at an assisted living facility in [place], [place] last January,. Patient transferred to [facility] for subsequent surgery. Patient later discharged to local [facility] rehab [facility]. Anticipated return to home in a couple of weeks as per . Patient with Guerrero catheter following difficult placement following injury from few months ago. Over the weekend, patient noted to have intermittent shaking and mild confusion, weakness, inability to stand up by . Patient denies headache, chest pain, SOB, abdominal pain, dysuria symptoms. Unclear if patient family verbalized symptoms to facility provider. Patient seen at [facility] urology office today for outpatient cystoscopy. Bactrim given perioperatively. Gross hematuria noted after Guerrero catheter removal. Cystoscopy findings as follows: Urethra demonstrated inflammation and old blood, no clear trauma . Prostatic urethra demonstrated moderate lateral lobe prostatic obstruction, varicosities, engorgement, and active bleeding. Bladder neck was visualized and bladder was entered. Sterile saline irrigation was used to distend the bladder which was noted to have mobile debris and diffuse inflammation consistent with indwelling Guerrero catheter with grade 3 trabeculation. Bladder was completely inspected including retroflexion of the scope. Ureteral orifices were noted to be difficult to visualize secondary to inflammation. Subsequent Guerrero catheter replacement and irrigation. Urologist recommended maintaining Guerrero catheter with plan for void trial/Guerrero catheter exchange in 1 month. Patient a candidate for greenlight TURP if necessary for persistent urinary retention. Worsening weakness and confusion noted at [facility]. SBP 80s upon arrival at the ER. Multiple fluid boluses, IV Zosyn, IV hydrocortisone, and Levophed administered at the ER. SBP currently 90s. Patient mentation much better as per . Medical History as above Surgical History : Hip fracture surgery, uvulopalatopharyngoplasty tonsillectomy/adenoidectomy, vasectomy, cystoscopy Family History : Heart disease, DM, dementia Personal/Social history : Past tobacco abuse, occasional EtOH intake, businessman Allergies Allergy/AdvReac Type Severity Reaction Status Date / Time atorvastatin Allergy Intermediate muscle Verified 03/28/22 14:59 cramps pregabalin Allergy Intermediate constipatio Verified 03/28/22 14:59 n simvastatin Allergy Intermediate muscle Verified 03/28/22 14:59 cramps Home Medications Medication Instructions Recorded Confirmed Type losartan 100 mg tablet 100 mg PO DAILY 11/30/18 03/27/23 History metformin 1,000 mg tablet 1,000 mg PO QDB 11/30/18 03/27/23 History nitroglycerin 0.4 mg sublingual 0.4 mg sublingual UD PRN Chest Pain 11/30/18 03/27/23 History tablet tamsulosin 0.4 mg capsule 0.4 mg PO DAILY 11/30/18 03/27/23 History atenolol 50 mg tablet 50 mg PO Q12 05/22/19 03/27/23 History finasteride 5 mg tablet 5 mg PO DAILY 03/28/22 03/27/23 History amitriptyline 50 mg tablet 50 mg PO HS 03/27/23 03/27/23 History aspirin 81 mg tablet,delayed 81 mg PO DAILY 03/27/23 03/27/23 History release clopidogrel 75 mg tablet 75 mg PO DAILY 03/27/23 03/27/23 History docusate sodium 100 mg capsule 100 mg PO BID 03/27/23 03/27/23 History evolocumab 420 mg/3.5 mL 420 mg subcut MONTHLY 03/27/23 03/27/23 History subcutaneous wearable injector (Repluz maria Pushtronex) ferrous sulfate 325 mg (65 mg 325 mg PO DAILY 03/27/23 03/27/23 History iron) tablet gabapentin 300 mg capsule 300 mg PO BIDM 03/27/23 03/27/23 History gabapentin 300 mg capsule 600 mg PO HS 03/27/23 03/27/23 History hydroxyzine pamoate 50 mg capsule 50 mg PO QID PRN Anxiety 03/27/23 03/27/23 History naloxone 4 mg/actuation nasal spray 1 spray intranasal UD PRN Opioid 03/27/23 03/27/23 History Overdose ondansetron HCl 4 mg tablet 4 mg PO Q4 PRN nausea/vomiting 03/27/23 03/27/23 History oxycodone 5 mg tablet 5 mg PO QID PRN pain scale 7-10 03/27/23 03/27/23 History oxymetazoline 0.05 % nasal mist 2 spray intranasal BID PRN Nasal 03/27/23 03/27/23 History (Afrin (oxymetazoline)) Congestion pantoprazole 40 mg tablet,delayed 40 mg PO HS 03/27/23 03/27/23 History release polyethylene glycol 3350 17 17 g PO DAILY PRN Constipation 03/27/23 03/27/23 History gram/dose oral powder (Miralax) sennosides 8.6 mg tablet (senna) 17.2 mg PO HS 03/27/23 03/27/23 History sennosides 8.6 mg-docusate sodium 1 tab-cap PO .WITH LUNCH PRN 03/27/23 03/27/23 History 50 mg tablet (Senna Plus) Constipation sodium chloride 0.65 % nasal spray 1 spray intranasal .EVERY 3 HOURS 03/27/23 03/27/23 History aerosol (Saline Mist) W/A Past Med/Surg History Medical History (Updated 03/27/23 @ 23:14 by Yelena Lyons PA-C) Diabetic peripheral neuropathy associated with type 2 diabetes mellitus Dyslipidemia Essential hypertension Gait disturbance Other specified myopathies Proximal leg weakness Type 2 diabetes mellitus Social History Smoking Status: Unknown if ever smoked Second Hand Exposure: No; Do You Dip or Chew Tobacco: No; Hx Alcohol Use: No Hx Substance Use: No Preferred Language: Sinhala Communication Ability: Effective Furniture Repairer Required: No Beliefs That Will Affect Care: None Current Living Situation: Jail Current Living Situation Comment: [place] current occupation: [employer] Other Information That Helps Us Care for You: No Feels Safe at Home: Yes Safety Concerns: Feels Safe At This Time Assistive Devices: Denture - Upper, Denture - Lower, Glasses, Walker and Wheelchair Review of Systems Review of Systems: Could not be reliably obtained secondary to episodic lethargy Physical Exam Physical Exam: GENERAL: Episodic lethargy, no respiratory distress SKIN: Pallor, warm HEENT: Partial alopecia, pale palpebral conjunctivae, no ptosis, dry buccal mucosa NECK : Supple, no tenderness CHEST : Decreased breath sounds, no tenderness HEART : Tachycardic, no obvious murmurs ABDOMEN: Some distention, nontender EXTREMITIES : No LE swelling/tenderness, no other conspicuous deformities noted NEUROLOGIC : Episodic lethargy, no facial asymmetry, gait and stance not assessed Results & Data Results & Data Vital Signs (Past 12 Hours) Vital Signs Temp Pulse Resp BP Pulse Ox O2 Del Method 03/27/23 21:35 101 H 26 H 91 03/27/23 21:35 87/50 L 03/27/23 21:30 86/49 L 03/27/23 21:30 102 H 19 93 03/27/23 21:25 100 H 27 H 94 03/27/23 21:25 75/47 L 03/27/23 21:20 102 H 26 H 95 03/27/23 21:20 81/48 L 03/27/23 21:15 101 H 24 91 03/27/23 21:15 83/49 L 03/27/23 21:10 83/49 L 03/27/23 21:10 101 H 25 H 91 03/27/23 21:05 78/50 L 03/27/23 21:05 101 H 25 H 91 03/27/23 21:00 78/49 L 03/27/23 21:00 101 H 24 92 03/27/23 20:55 78/50 L 03/27/23 20:55 100 H 27 H 94 03/27/23 20:50 75/46 L 03/27/23 20:50 100 H 25 H 90 03/27/23 20:45 69/47 L 03/27/23 20:45 100 H 26 H 92 03/27/23 20:40 101 H 23 93 03/27/23 20:40 73/46 L 03/27/23 20:35 83/47 L 03/27/23 20:35 99 H 35 H 92 03/27/23 20:31 100 H 27 H 93 03/27/23 20:31 80/52 L 03/27/23 20:30 100 H 28 H 94 03/27/23 20:25 100 H 25 H 94 03/27/23 20:20 101 H 30 H 92 03/27/23 20:15 103 H 25 H 93 03/27/23 20:11 105 H 29 H 94 03/27/23 20:11 78/50 L 03/27/23 20:10 85/48 L 03/27/23 20:10 171 H 27 H 95 03/27/23 20:07 83/54 L 03/27/23 20:07 183 H 23 96 03/27/23 20:05 82/52 L 03/27/23 20:05 160 H 95 03/27/23 20:04 159 H 26 H 95 03/27/23 20:03 78/59 L 03/27/23 19:50 142 H 22 93 03/27/23 19:45 96/63 L 03/27/23 19:45 161 H 30 H 94 03/27/23 19:40 90/58 L 03/27/23 19:40 134 H 24 03/27/23 19:35 95/56 L 03/27/23 19:35 149 H 25 H 03/27/23 19:30 93/56 L 01/15/24 19:30 211 H 22 90 03/27/23 19:29 180 H 22 92 03/27/23 19:29 90/68 L 03/27/23 19:27 175 H 26 H 99 03/27/23 19:27 99/51 L 03/27/23 19:27 99/51 L 03/27/23 19:25 62/51 L 03/27/23 19:25 200 H 29 H 92 03/27/23 19:23 38.2 C H 113 H 29 H 83/54 L 93 Room Air 03/27/23 19:22 92 Room Air 03/27/23 19:21 77/50 L 03/27/23 19:21 187 H 22 90 03/27/23 19:20 147 H 20 92 03/27/23 19:19 85/46 L 03/27/23 19:19 122 H 27 H 03/27/23 19:15 112 H 30 H 03/27/23 19:10 112 H 29 H 92 03/27/23 19:09 113 H 19 03/27/23 19:08 83/54 L 03/27/23 19:08 113 H Laboratory Results Laboratory Results WBC 4.58 K/ul (4.8-10.8) L 03/27/23 19:15 RBC 3.95 M/uL (4.70-6.10) L 03/27/23 19:15 Hgb 11.7 g/dl (14.0-18.0) L 03/27/23 19:15 POC Hgb 11.6 g/dl (14.0-18.0) L 03/27/23 19:21 Hct 35.2 % (42.0-52.0) L 03/27/23 19:15 POC Hct 34 % (42-52) L 03/27/23 19:21 MCV 89.1 fL (80.0-100.0) 03/27/23 19:15 MCH 29.6 pg (25.0-34.0) 03/27/23 19:15 MCHC 33.2 g/dL (32.0-36.0) 03/27/23 19:15 RDW Std Deviation 50.3 fL (36.4-46.3) H 03/27/23 19:15 RDW Coeff of Indira 15.2 % (11.5-14.5) H 03/27/23 19:15 Plt Count 73 K/uL (130-400) L 03/27/23 19:15 MPV 11.0 fL (9.4-12.4) 03/27/23 19:15 Immature Gran % (Auto) 0.2 % 03/27/23 19:15 Neut % (Auto) 89.4 % 03/27/23 19:15 Lymph % (Auto) 8.7 % 03/27/23 19:15 [place] % (Auto) 1.5 % 03/27/23 19:15 Eos % (Auto) 0.0 % 03/27/23 19:15 Baso % (Auto) 0.2 % 03/27/23 19:15 Neut # (Auto) 4.09 K/uL (1.40-6.50) 03/27/23 19:15 Lymph # (Auto) 0.40 K/uL (1.20-3.40) L 03/27/23 19:15 [place] # (Auto) 0.07 K/uL (0.11-0.59) L 03/27/23 19:15 Eos # (Auto) 0.00 K/uL (0.00-0.50) 03/27/23 19:15 Baso # (Auto) 0.01 K/uL (0.00-0.20) 03/27/23 19:15 Immature Gran # (Auto) 0.01 K/uL (0.01-0.20) 03/27/23 19:15 Toxic Vacuolation 1+ 03/27/23 19:15 Dohle Bodies 1+ 03/27/23 19:15 Platelet Estimate Decreased (Normal) L 03/27/23 19:15 Polychromasia 1+ 03/27/23 19:15 PT 11.5 Seconds (9.0-12.0) 03/27/23 19:15 INR 1.1 (0.9-1.1) 03/27/23 19:15 POC Sodium 129 mmol/L (135-144) L 03/27/23 19:21 Sodium 128 mmol/L (136-145) L 03/27/23 19:15 POC Potassium 4.5 mmol/L (3.3-5.0) 03/27/23 19:21 Potassium 4.4 mmol/L (3.5-5.1) 03/27/23 19:15 POC Chloride 97 mmol/L (101-112) L 03/27/23 19:21 Chloride 96 mmol/L (98-107) L 03/27/23 19:15 Carbon Dioxide 19 mmol/L (21-32) L 03/27/23 19:15 POC Total CO2 20 mmol/L (24-31) L 03/27/23 19:21 Anion Gap 13 (3-11) H 03/27/23 19:15 POC Anion Gap 18.0 mmol/L (16-25) 03/27/23 19:21 POC BUN 40 mg/dl (7-18) H 03/27/23 19:21 BUN 48 mg/dl (6-23) H 03/27/23 19:15 Creatinine 3.53 mg/dl (0.6-1.4) H 03/27/23 19:15 POC Creatinine 3.9 mg/dl (0.6-1.3) H 03/27/23 19:21 Est Cr Clr Drug Dosing 19.2 ml/min 03/27/23 19:15 Est GFR ( Amer) 17.9 ml/min 03/27/23 19:15 Est GFR (Non-Af Amer) 15.4 ml/min 03/27/23 19:15 BUN/Creatinine Ratio 13.6 (10-20) 03/27/23 19:15 Glucose 167 mg/dl (70-99(Fasting)) H 03/27/23 19:15 POC Glucose (other) 173 mg/dl (70-99) H 03/27/23 19:21 Osmolality 286 mOsm/kg (280-300) 03/27/23 21:09 Lactate 2.7 mmol/L (0.4-2.0) H* 03/27/23 21:09 Calcium 8.5 mg/dl (8.6-10.3) L 03/27/23 19:15 POC Ioniz Calcium Robert 1.09 mmol/l (1.12-1.32) L 03/27/23 19:21 Magnesium 1.2 mg/dl (1.7-2.4) L 03/27/23 19:15 Total Bilirubin 2.6 mg/dl (0.2-1.0) H 03/27/23 19:15 AST 27 U/L (13-39) 03/27/23 19:15 ALT 21 U/L (7-52) 03/27/23 19:15 Alkaline Phosphatase 135 U/L (34-104) H 03/27/23 19:15 Troponin I High Sens 16.7 pg/ml (0-20) D 03/27/23 21:09 Total Protein 6.9 gm/dl (6.0-8.3) 03/27/23 19: Albumin 3.7 gm/dl (3.4-5.0) 03/27/23 19:15 Globulin 3.2 gm/dl (2.5-4.0) 03/27/23 19:15 Albumin/Globulin Ratio 1.2 (0.9-2) 03/27/23 19:15 Procalcitonin 167.43 ng/ml (0-0.5) H 03/27/23 19:15 TSH 8.492 uIu/ml (0.300-4.500) H 03/27/23 19:15 Free T4 1.20 ng/dl (0.61-1.60) 03/27/23 19:15 Urine Color Brown 03/27/23 19: Urine Appearance Turbid (Clear) A 03/27/23 19: Urine pH 5.5 (4.5-7.5) 03/27/23 19: Ur Specific [place] 1.025 (1.000-1.030) 03/27/23 19:28 Urine Protein 3+ (Negative) H 03/27/23 19: Urine Glucose (UA) Trace (Negative) H 03/27/23 19: Urine Ketones Trace (Negative) H 03/27/23 19: Urine Blood 3+ (Negative) H 03/27/23 19: Urine Nitrite Positive (Negative) A 03/27/23 19: Urine Bilirubin 2+ (Negative) H 03/27/23 19: Urine Urobilinogen Negative (Negative) 03/27/23 19: Ur Leukocyte Esterase 3+ (Negative) H 03/27/23 19:28 Urine RBC >30 /hpf (0-4) H 03/27/23 19:28 Urine WBC >30 /hpf (0-5) H 03/27/23 19:28 Ur Epithelial Cells 0-5 /lpf (0-5) 03/27/23 19:28 Amorphous Sediment Present (None Prsent) A 03/27/23 19:28 Urine Bacteria 2+ (Negative) H 03/27/23 19:28 Hyaline Casts 0-5 /lpf (0-5) 03/27/23 19:28 Urine Osmolality Cancelled 03/27/23 19:28 Ur Random Sodium Cancelled 03/27/23 19:28 Adenovirus (PCR) Not Detected (NotDetected) 03/27/23 19:21 B. pertussis DNA (PCR) Not Detected (NotDetected) 03/27/23 19:21 B.parapertussis DNA PCR Not Detected (NotDetected) 03/27/23 19:21 C. pneumoniae DNA (PCR) Not Detected (NotDetected) 03/27/23 19:21 Coronavirus OC43 (PCR) Not Detected (NotDetected) 03/27/23 19:21 Coronavirus HKU1 (PCR) Not Detected (NotDetected) 03/27/23 19:21 Coronavirus 229E (PCR) Not Detected (NotDetected) 03/27/23 19:21 SARS-CoV-2 (PCR) Not Detected (NotDetected) 03/27/23 19:21 Coronavirus NL63 (PCR) Not Detected (NotDetected) 03/27/23 19:21 Human Metapneumovir PCR Not Detected (NotDetected) 03/27/23 19:21 Influenza Type A (PCR) Not Detected (NotDetected) 03/27/23 19:21 Influenza Type B (PCR) Not Detected (NotDetected) 03/27/23 19:21 M. pneumoniae (PCR) Not Detected (NotDetected) 03/27/23 19:21 Parainfluenza 1 (PCR) Not Detected (NotDetected) 03/27/23 19:21 Parainfluenza 2 (PCR) Not Detected (NotDetected) 03/27/23 19:21 Parainfluenza 3 (PCR) Not Detected (NotDetected) 03/27/23 19:21 Parainfluenza 4 (PCR) Not Detected (NotDetected) 03/27/23 19:21 RSV (PCR) Not Detected (NotDetected) 03/27/23 19:21 Entero/Rhino (PCR) Not Detected (NotDetected) 03/27/23 19:[address] 03/27/23 19:14 Exam(s): CT HEAD Without Contrast EXAM: CT Head Without Intravenous Contrast CLINICAL HISTORY: Reason for exam: ams. TECHNIQUE: Axial computed tomography images of the head/brain without intravenous contrast. CTDI is 35.51 mGy and DLP is 624.41 mGy-cm. Automated exposure control was utilized for the study. A dose lowering technique was utilized adhering to the principles of ALARA. COMPARISON: No relevant prior studies available. 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 No hemorrhage. Ventricles: Unremarkable. No ventriculomegaly. Bones/joints: Unremarkable. No acute fracture. Soft tissues: Unremarkable. Sinuses: Unremarkable as visualized. No acute sinusitis. Mastoid air cells: Unremarkable as visualized. No mastoid effusion. IMPRESSION: No acute intracranial abnormality Electronically signed by: Anuj Chan MD 03/27/23 20:57 PM Abdomen/Pelvis CT 03/27/23 19:23 Exam(s): CT ABDOMEN + PELVIS Without Contrast EXAM: CT Abdomen and Pelvis Without Intravenous Contrast CLINICAL HISTORY: Reason for exam: ams, hematuria, kidney disfunction, fever. TECHNIQUE: Axial computed tomography images of the abdomen and pelvis without intravenous contrast. CTDI is antibiotic 35.51 mGy and DLP is 1213.9 mGy- cm. Automated exposure control was utilized for the study. A dose lowering technique was utilized adhering to the principles of ALARA. COMPARISON: 08/17/2008 FINDINGS: Lung bases: Subsegmental atelectasis seen in the left lung base. ABDOMEN: Liver: Fatty liver. Gallbladder and bile ducts: Unremarkable. No calcified stones. No ductal dilation. Pancreas: Unremarkable. No ductal dilation. Spleen: Unremarkable. No splenomegaly. Adrenals: There is stable 2.1 cm left adrenal nodule with density measurement of 20 HU. Kidneys and ureters: Unremarkable. No obstructing stones. No hydronephrosis. Stomach and bowel: Unremarkable. No obstruction. No mucosal thickening. PELVIS: Appendix: No findings to suggest acute appendicitis. Bladder: Foleys catheter bulb seen in the decompressed urinary bladder lumen. No stones. Reproductive: Unremarkable as visualized. ABDOMEN and PELVIS: Intraperitoneal space: Unremarkable. No free air. No significant fluid collection. Bones/joints: There is left hip arthroplasty. No acute fracture. No dislocation. There is hemangioma seen in the T10 vertebral body. Vasculature: Unremarkable. No abdominal aortic aneurysm. Lymph nodes: Unremarkable. No enlarged lymph nodes. IMPRESSION: No acute findings in the abdomen or pelvis. Electronically signed by: Anuj Chan MD 03/27/23 20:40 PM Diagnostic Findings EKG as per my interpretation : Rate 110, sinus tachycardia, LAD, LAFB, no ischemia
--- NOTE | 2023-03-27 22:08 | Critical Care Consultation ---
Date of Consultation March 27, 2023 Assessment & Plan (1) Confusion: (2) Septic shock: (3) Acute kidney injury: Plan 1. Septic shock 2/2 urinary tract infection and bacterial dissemination with tract manipulation following maurice placement 2. JESÚS on CKD, prerenal 3. Lactic acidosis, improving 4. Thrombocytopenia, likely due to sepsis 5. Hyponatremia, mild,hypovolemic 6. Urinary tract obstruction, BPH, indwelling maurice 7. Metabolic encephalopathy 2/2 #1 and associate hypotension, improving Neurologic Avoid sedating medications CAM-ICU: negative Delirium precautions Home Elavil, Gabapentin at lower dose Hold home PRN Atarax for now Cardiovascular Wean norepinephrine for MAP > 65mmHg POCUS now for volume assessment Hold hold antihypertensives Hold DAPT overnight pending clearance of hematuria Respiratory HOB upright Patient uncertain if he uses CPAP at home Aspiration precautions Respiratory-driven protocol IS/Flutter Gastrointestinal/Nutrition Diet: NPO except meds following dysphagia screen SUP: Home PPI Bowel regimen: Senna, PRN Miralax Endocrine Hold home oral antihypergllycemics SSI for BG goal 140-180 per SCCM guidelines TSH elevated, T4 pending Infectious Disease Continue Zosyn pending culture data BC x2 pending, UA +, UCx pending, procalcitonin elevated, MRSA pending Prior culture data: 03/17/2023 with pansensitive e.coli and klebsiella Antibiotics stewardship Renal/Metabolic Trend metabolic panel, repeat lytes as indicated Suspect improvement with hydration Trend lactate to clearance Home finasteride, tamsulosin Heme/Onc DVT PPX: Hold overnight Holding DAPT SCDs L/T/D PIV x2 Maurice (Day #1) - placed as outpatient Family communication: Will attempt to speak with patient's Re: Code status. No POLST in chart. Disposition: ICU Thank you for allowing us to participate in this patient's care. We will continue to follow with you. History of Present Illness Reason for Consultation: Septic shock Requesting Physician: Nargis Attending Physician: Dr. Pena History of Present Illness Mr. Allen Pedraza is a pleasant 82YO M with a history of dementia, polyneuropathy, CAD on DAPT, JASPAL, HTN/HLD, NIDDMII, BPH, and recent L hip arthroplasty who presented to [facility] on 03/27/2023 afternoon due to confusion, subjective fever, and hematuria. Per report patient had Urology clinic visit 03/27/23 where his maurice catheter was removed, but due to continued retention it was replaced. Patient developed fever and continued confusion so presented to ER for evaluation. On arrival to ED, patient hypotensive and tachycardic. Mildly hyperthermic at 38.2C. Tachypneic but SpO2 stable on room air. Work-up revealed lactic acidosis, leukopenia, thrombocytopenia, mild hyponatremia, JESÚS, and grossly + UA. Procalcitonin 167.43. TSH elevated at 8.5. RVP (-). CT AP without acute findings. Maurice bag with blood tinged urine, no kamryn blood. Patient seen in ED C02. He is AAOx2. Thought he was at the dentist's office when asked location. He is in no acute distress. Pleasant and conversant. Denies SOB, chest pain, abdominal pain, dysuria, paresthesias, headache, visual changes. On small dose of norepinephrine. Draining pink-tinged urine from maurice without clots or kamryn blood. Allergies Allergy/AdvReac Type Severity Reaction Status Date / Time atorvastatin Allergy Intermediate muscle Verified 03/28/22 14:59 cramps pregabalin Allergy Intermediate constipatio Verified 03/28/22 14:59 n simvastatin Allergy Intermediate muscle Verified 03/28/22 14:59 cramps Home Medications Medication Instructions Recorded Confirmed Type losartan 100 mg tablet 100 mg PO DAILY 11/30/18 03/27/23 History metformin 1,000 mg tablet 1,000 mg PO QDB 11/30/18 03/27/23 History nitroglycerin 0.4 mg sublingual 0.4 mg sublingual UD PRN Chest Pain 11/30/18 03/27/23 History tablet tamsulosin 0.4 mg capsule 0.4 mg PO DAILY 11/30/18 03/27/23 History atenolol 50 mg tablet 50 mg PO Q12 05/22/19 03/27/23 History finasteride 5 mg tablet 5 mg PO DAILY 03/28/22 03/27/23 History amitriptyline 50 mg tablet 50 mg PO HS 03/27/23 03/27/23 History aspirin 81 mg tablet,delayed 81 mg PO DAILY 03/27/23 03/27/23 History release clopidogrel 75 mg tablet 75 mg PO DAILY 03/27/23 03/27/23 History docusate sodium 100 mg capsule 100 mg PO BID 03/27/23 03/27/23 History evolocumab 420 mg/3.5 mL 420 mg subcut MONTHLY 03/27/23 03/27/23 History subcutaneous wearable injector (Repatha Pushtronex) ferrous sulfate 325 mg (65 mg 325 mg PO DAILY 03/27/23 03/27/23 History iron) tablet gabapentin 300 mg capsule 300 mg PO BIDM 03/27/23 03/27/23 History gabapentin 300 mg capsule 600 mg PO HS 03/27/23 03/27/23 History hydroxyzine pamoate 50 mg capsule 50 mg PO QID PRN Anxiety 03/27/23 03/27/23 History naloxone 4 mg/actuation nasal spray 1 spray intranasal UD PRN Opioid 03/27/23 03/27/23 History Overdose ondansetron HCl 4 mg tablet 4 mg PO Q4 PRN nausea/vomiting 03/27/23 03/27/23 History oxycodone 5 mg tablet 5 mg PO QID PRN pain scale 7-10 03/27/23 03/27/23 History oxymetazoline 0.05 % nasal mist 2 spray intranasal BID PRN Nasal 03/27/23 History (Afrin (oxymetazoline)) Congestion pantoprazole 40 mg tablet,delayed 40 mg PO HS 03/27/23 03/27/23 History release polyethylene glycol 3350 17 17 g PO DAILY PRN Constipation 03/27/23 03/27/23 History gram/dose oral powder (Miralax) sennosides 8.6 mg tablet (senna) 17.2 mg PO HS 03/27/23 03/27/23 History sennosides 8.6 mg-docusate sodium 1 tab-cap PO .WITH LUNCH PRN 03/27/23 03/27/23 History 50 mg tablet (Senna Plus) Constipation sodium chloride 0.65 % nasal spray 1 spray intranasal .EVERY 3 HOURS 03/27/23 03/27/23 History aerosol (Saline Mist) W/A Patient History Medical History (Updated 03/27/23 @ 23:14 by Yelena Lyons PA-C) Diabetic peripheral neuropathy associated with type 2 diabetes mellitus Dyslipidemia Essential hypertension Gait disturbance Other specified myopathies Proximal leg weakness Type 2 diabetes mellitus Social History Smoking Status: Unknown if ever smoked Second Hand Exposure: No; Do You Dip or Chew Tobacco: No; Hx Alcohol Use: No Hx Substance Use: No Preferred Language: Nigerien Communication Ability: Effective Staff Cytotechnologist Required: No Beliefs That Will Affect Care: None Current Living Situation: Skilled Nursing Current Living Situation Comment: [place] current occupation: owns [employer] Other Information That Helps Us Care for You: No Feels Safe at Home: Yes Safety Concerns: Feels Safe At This Time Assistive Devices: Denture - Upper, Denture - Lower, Glasses, Walker and Wheelchair Review of Systems Review of Systems: All systems reviewed & are unremarkable except as noted in Subjective Physical Exam Constitutional: WD/WN, vitals as above Eyes: PERRL, conjunctivae normal, anicteric sclerae ENMT: Mouth: + dry oral mucous membranes Neck: trachea midline, no thyromegaly Respiratory: normal respiratory effort, lungs clear to auscultation Cardiovascular: RRR, no murmur, no edema Gastrointestinal (Abdomen): normal bowel sounds, soft, nontender, no hepatosplenomegaly Skin: no rashes, warm and dry Neurologic: PERRL, EOMI, accommodation nl, no face palsy, no dysarthria Genitourinary: Maurice in place Results & Data Results & Data Vital Signs (Past 12 Hours) Vital Signs Temp Pulse Resp BP Pulse Ox O2 Del Method 03/27/23 21:35 101 H 26 H 91 03/27/23 21:35 87/50 L 03/27/23 21:30 86/49 L 03/27/23 21:30 102 H 19 93 03/27/23 21:25 100 H 27 H 94 03/27/23 21:25 75/47 L 03/27/23 21:20 102 H 26 H 95 03/27/23 21:20 81/48 L 03/27/23 21:15 101 H 24 91 03/27/23 21:15 83/49 L 03/27/23 21:10 83/49 L 03/27/23 21:10 101 H 25 H 91 03/27/23 21:05 78/50 L 03/27/23 21:05 101 H 25 H 91 03/27/23 21:00 78/49 L 03/27/23 21:00 101 H 24 92 03/27/23 20:55 78/50 L 03/27/23 20:55 100 H 27 H 94 03/27/23 20:50 75/46 L 03/27/23 20:50 100 H 25 H 90 03/27/23 20:45 69/47 L 03/27/23 20:45 100 H 26 H 92 03/27/23 20:40 101 H 23 93 03/27/23 20:40 73/46 L 03/27/23 20:35 83/47 L 03/27/23 20:35 99 H 35 H 92 03/27/23 20:31 100 H 27 H 93 03/27/23 20:31 80/52 L 03/27/23 20:30 100 H 28 H 94 03/27/23 20:25 100 H 25 H 94 03/27/23 20:20 101 H 30 H 92 03/27/23 20:15 103 H 25 H 93 03/27/23 20:11 105 H 29 H 94 03/27/23 20:11 78/50 L 03/27/23 20:10 85/48 L 03/27/23 20:10 171 H 27 H 95 03/27/23 20:07 83/54 L 03/27/23 20:07 183 H 23 96 03/27/23 20:05 82/52 L 03/27/23 20:05 160 H 95 03/27/23 20:04 159 H 26 H 95 03/27/23 20:03 78/59 L 03/27/23 19:50 142 H 22 93 03/27/23 19:45 96/63 L 03/27/23 19:45 161 H 30 H 94 03/27/23 19:40 90/58 L 03/27/23 19:40 134 H 24 03/27/23 19:35 95/56 L 03/27/23 19:35 149 H 25 H 03/27/23 19:30 93/56 L 03/27/23 19:30 211 H 22 90 03/27/23 19:29 180 H 22 92 03/27/23 19:29 90/68 L 03/27/23 19:27 175 H 26 H 99 03/27/23 19:27 99/51 L 03/27/23 19:27 99/51 L 03/27/23 19:25 62/51 L 03/27/23 19:25 200 H 29 H 92 03/27/23 19:23 38.2 C H 113 H 29 H 83/54 L 93 Room Air 03/27/23 19:22 92 Room Air 03/27/23 19:21 77/50 L 03/27/23 19:21 187 H 22 90 03/27/23 19:20 147 H 20 92 03/27/23 19:19 85/46 L 03/27/23 19:19 122 H 27 H 03/27/23 19:15 112 H 30 H 03/27/23 19:10 112 H 29 H 92 03/27/23 19:09 113 H 19 03/27/23 19:08 83/54 L 03/27/23 19:08 113 H Laboratory Results Reviewed Diagnostic Findings Reviewed Medications Administered See MAR Coding Level of Care Code 34203 IN/OBS CONSULT LVL 2,35M Diagnoses Confusion R41.0 Septic shock A41.9; R65.21 Acute kidney injury N17.9
[2023-03-27] MEDS ORDERED: GLUCOSE 10 TAB/TUBE PO PRN (22:57)
[2023-03-27] MEDS ORDERED: PROMETHAZINE HCL 6.25 MG in SODIUM CHLORIDE 0.9% 50 ML IV PRN (22:57)
[2023-03-27] MEDS ORDERED: INSULIN ASPART PER UNIT CHARGE SC SCH (22:57)
[2023-03-27] MEDS ORDERED: POLYETHYLENE (MIRALAX) 17 GM PACK PO PRN (22:57)
[2023-03-27] MEDS ORDERED: ACETAMINOPHEN 325 MG TAB PO PRN (22:57)
[2023-03-27] MEDS ORDERED: GLUCOSE 40% GEL 15 GM TUBE PO PRN (22:57)
[2023-03-27] MEDS ORDERED: DEXTROSE 50% 50 ML SYRINGE IV PRN (22:57)
[2023-03-27] MEDS ORDERED: GLUCAGON FOR INJ 1 MG VIAL SQ PRN (22:57)
[2023-03-27] MEDS ORDERED: CARBOHYDRATES FOR HYPOGLYCEMIA PO PRN (22:57)
[2023-03-27] MEDS: CEFEPIME 1,000 MG in SYRINGE 0 ML IV SCH (23:46)
[2023-03-28] MEDS ORDERED: SODIUM CHLORIDE 0.9% 1,000 ML IV SCH
[2023-03-28 01:00] LABS: BUN Creatinine Ratio 14.4 (10-20); Calcium 7.3 mg/dl (8.6-10.3); Creatinine Clr Calc Pharmacy 22.1 ml/min; Est GFR (African American) 20.6 ml/min; Est GFR (Non-African American) 17.8 ml/min; Potassium 4.7 mmol/L (3.5-5.1)
[2023-03-28] MEDS: MAGNESIUM SULFATE / D5W 1 GM/100 ML BAG IV SCH (01:31)
[2023-03-28] MEDS: INSULIN ASPART PER UNIT CHARGE SC SCH ×6 (01:31→20:34)
--- OUTSIDE RECORDS SUMMARY | 2023-03-28 03:41 | External Medical Summary | Summary of Care ---
Author Name Unknown Organization [facility] Address [address] [facility] [place] [address] Phone [phone] Care Team Providers Care Senior Process Analyst Name Role Phone Jimmy Gama MD Primary Care Provider + Encounter Details Date Type Department Care Team (Latest Contact Info) Description 03/27/2023 2:00 PM EST Procedure Only Urology, [facility] [address] [facility] [place] [address] Waqas Grewal MD [address] [place] [address] Hematuria, gross*; BPH with obstruction/lower urinary tract symptoms; Retention of urine Allergies Active Allergy Reactions Criticality Noted Date Comments Atorvastatin Muscle pain Medium 09/03/2014 Rosuvastatin 06/02/2015 Pregabalin 08/15/2017 Simvastatin Muscle pain 03/31/2014 Statins 09/06/2017 documented as of this encounter (statuses as of 03/27/2023) Medications Medication Sig Dispensed Refills Start Date End Date Status AcesoBee SYSTEM W/DEVICE KITIndications:Elect rolyte and fluid disorder Use up to four times a day as directed 1 Kit 0 10/27/2009 Active CYANOCOBALAMIN (VITAMIN B-12) 100 MCG Tablet Take 1 Tablet by mouth every evening. 0 Active Aspirin 81 MG Tablet Take 1 Tablet by mouth in the morning. 0 02/12/2018 Active Glucose Blood (ONETOUCH ULTRA BLUE) STRPIndications:Type 2 diabetes mellitus with hemoglobin A1c goal of less than 7.0% ([facility]) USE UP TO FOUR TIMES A DAY DIRECTED 400 Strip 1 08/10/2018 Active Additional Information Patient not taking.Reported on 12/13/2022 ONETOUCH ULTRASOFT LANCETS MISCIndications:Elec trolyte and fluid disorder Use up to four times a day as directed 400 Box Dosing Unit 2 09/20/2018 Active gabapentin (NEURONTIN) 100 MG CapsuleIndications:D iabetic polyneuropathy associated with type 2 diabetes mellitus (HCC) TAKE 2 CAPSULES BY MOUTH 3 TIMES A DAY 540 Cap 1 09/30/2019 Active Additional Information Patient taking differently: 300 mg QID(AM/NOON/PM/HS), Reported on 04/05/2022 Nitroglycerin 0.4 MG Sublingual Tablet Sublingual (Nitrostat)Indicatio ns:Coronary atherosclerosis of [place] coronary artery TAKE 1 EVERY 5 MINUTES NEEDED FOR CHEST PAIN USE UP TO 3 IN 15 MINUTES 25 Tab 3 07/02/2020 Active Additional Information Patient not taking.Reported on 12/06/2022 Amoxicillin 500 MG Oral Capsule (Amoxil) TAKE 4 CAPS 1 HOUR PRIOR TO APT 0 04/05/2021 Active Acetaminophen 325 MG Oral Tablet (Tylenol) Take 1 Tablet by mouth every 6 hours as needed. 0 Active Docusate Sodium 100 MG Oral Capsule Take 1 Capsule by mouth in the morning. 0 Active Diclofenac Sodium 1 % External Gel (Voltaren) Apply 1 Applicatorful topically to affected area 4 times a day as needed. Apply to affected area as needed 0 Active Amitriptyline HCl 50 MG Oral Tablet (Elavil) at bedtime. 0 01/24/2022 Active Tamsulosin HCl 0.4 MG Oral Capsule (Flomax)Indications: Urinary hesitancy TAKE 1 CAPSULE BY MOUTH EVERY DAY 90 Capsule 3 03/17/2022 Active HYDROcodone-Acetamin ophen 5-325 MG Oral Tablet Take 1 Tablet by mouth every 8 hours as needed for Pain, Mild, Pain, Breakthrough or Pain, Severe. 30 Tablet 0 11/01/2022 Active Additional Information Patient not taking.Reported on 12/06/2022 HYDROcodone-Acetamin ophen 5-325 MG Oral Tablet Take 1 Tablet by mouth every 8 hours as needed for Pain, Mild. 30 Tablet 0 10/28/2022 Active Additional Information Patient not taking.Reported on 12/06/2022 Finasteride 5 MG Oral Tablet (Proscar) TAKE 1 TABLET BY MOUTH EVERY DAY IN THE MORNING 90 Tablet 3 11/28/2022 Active Losartan Potassium 100 MG Oral Tablet (Cozaar)Indications: Old myocardial infarct,HTN, goal below 140/90 TAKE 1 TABLET DAILY 90 Tablet 3 12/01/2022 Active Clopidogrel Bisulfate 75 MG Oral Tablet (pLAVix)Indications: Coronary artery disease involving [place] heart with angina pectoris, unspecified vessel or lesion type (HCC) Take 1 Tablet by mouth in the morning. 90 Tablet 3 12/02/2022 Active hydroCHLOROthiazide 12.5 MG Oral Capsule (Hydrodiuril) TAKE 1 CAPSULE BY MOUTH EVERY DAY 90 Capsule 1 12/09/2022 Active metFORMIN HCl 1000 MG Oral Tablet (Glucophage) TAKE 1 TABLET BY MOUTH EVERY DAY WITH BREAKFAST 90 Tablet 1 01/09/2023 Active Repatha Pushtronex System 420 MG/3.5ML Subcutaneous Solution Cartridge (Evolocumab with Infusor) Inject 420 mg (1 cartridge) under the skin Every Month. 10.5 mL 3 01/25/2023 Active Atenolol 50 MG Oral Tablet (Tenormin)Indication s:HTN, goal below 140/90 TAKE 1 TABLET BY MOUTH TWICE A DAY 180 Tablet 1 03/08/2023 Active Hospital, Clinic, or Other Facility Administered Medication Ordered Dose Route Frequency Start Date End Date Status sulfamethoxazole-trimethopr im DS (Bactrim DS) 800-160 MG 1 TabletIndications:BPH with obstruction/lower urinary tract symptoms,Retention of urine 1 Tablet OR ONCE 03/27/2023 03/28/19 24 Active documented as of this encounter (statuses as of 03/27/2023) Active Problems Problem Noted Date Diagnosed Date TMJ (dislocation of temporom andibular joint), initial encounter 08/29/2022 History of nonmelanoma skin cancer 08/04/2022 Overview: SCC R forearm 2021 Post-void dribbling 04/05/2022 Nocturia 04/05/2022 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 HTN, goal below 140/90 02/02/2009 Overview: Modified per HTN protocol #16. OLD MYOCARDIAL INFARCT 03/14/2006 CORONARY ATHEROSCLER. OF [place] CORONARY VESSEL 06/27/2001 OTHER AND UNSPECIFIED SLEEP APNEA documented as of this encounter (statuses as of 03/27/2023) Resolved Problems Problem Noted Date Diagnosed Date Resolved Date Encounter for examination fo r normal comparison and control in clinical research program 01/24/2019 01/24/2019 Overview: PI: Robin Pena DO RC: George Morataya Diagnosis changed due to Research Module. Go to Snapshot for study details. Diabetic mononeuropathy asso ciated with type 2 diabetes mellitus 09/25/2017 10/19/2017 Diabetic polyneuropathy asso ciated with type 2 diabetes mellitus 04/18/2016 12/03/2018 Inflamed seborrheic keratosis 07/24/2013 10/19/2017 Other seborrheic keratosis 07/24/2013 1 04/15/2017 Nguyen angioma 07/24/2013 12/03/2018 Obesity, Class I, BMI 30.0-3 4.9 (see actual BMI) 06/04/2009 11/21/2019 Overview: Per Obesity Taxonomy Hereditary and idiopathic pe ripheral neuropathy 09/20/2007 02/12/2018 Benign neoplasm of colon 05/31/200705/2017 Overview: adenomatous; repeat colonoscopy in 1 yr BENIGN NEOPLASM LG BOWEL 08/29/200505/2017 Overview: Colonoscopy 08/15/05--ulcer, tubular adenoma--repeat 6 months ADVANCE DIRECTIVE INFORMATION 09/15/2004 08/29/2022 Overview: No, Advance Directive brochure given to patient at prior appointment. Dyslipidemia, goal to be determined 06/27/2001 02/25/2009 Overview: Per Lipid Taxonomy. Acute VT, anterior wall 06/27/200110/12 HYPERTENSION NOS 02/02/2009 Overview: Modified per HTN protocol #16. OBESITY, UNSPECIFIED 010 Overview: Per Obesity Taxonomy documented as of this encounter (statuses as of 03/27/2023) Immunizations Name Administration Dates Next Due COVID-19 mRNA, LNP-s, No Pre serve, 2-Dose Series (Moderna) 05/02/2020,04/02/2020 COVID-19, mRNA, LNP-s, PF, B ooster, 100mcg/0.5mg (Moderna) 07/02/2021,01/06/2021 Covid-19, Mrna, Lnp-s, Pf, B ivalent, 50 Mcg, IM, 12 yrs and above (Moderna) 01/12/2022 HepA Inact/HepB Recomb>=18yrs old 04/02/2008,,09/19/2005 Pneumococcal Conjugate Vacc, 13 Valent (Prevnar) 11/07/2016 Pneumococcal Polysaccharide PPV23 (Pneumovax) 09/20/2007 Seasonal Influenza, PF, 6 M & above, IM , (FluLaval or Fluzone) 12/10/2019 Seasonal Influenza, Quadriva lent Hd (Fluzone Hd) 02/21/2022 TD, Preservative Free 04/01/2008 TDAP (age 10 and older)(Boostrix) 02/21/2017 Varicella Zoster Vaccine (Adult) 02/21/2017 documented as of this encounter Social History Tobacco Use Types Packs/Day Years Used Date Smoking Tobacco: Former Cigars Q uit: 06/11/2000 Smokeless Tobacco: Never Alcohol Use Standard Drinks/Week Comments Yes 0 (1 standard drink = 0.6 oz pur e alcohol) RARE-1/2 beer every 6 days PHQ-2 Answer Date Recorded PHQ Adult Total Score 0 11/29/2022 Hunger Vital Sign Answer Date Recorded Within the past 12 months, y ou worried that your food would run out before you got the money to buy more. Never true 11/30/19 23 Within the past 12 months, t he food you bought just didn't last and you didn't have money to get more. Never true 11/29/2022 Sex and Gender Information Value Date Recorded Sex Assigned at Male 11/08/2021 3:53 PM EDT Gender Identity Not on file Sexual Orientation Straight 11/08/2021 3: 53 PM EDT Job Start Date Occupation Industry Not on file Not on file Not on file documented as of this encounter Progress Notes * Waqas Grewal MD - 03/27/2023 2:00 PM EST [id number] PCP: [place] [address] Allen Pedraza is a 82 year old male, who presents for cystoscopy for evaluation of his difficulties with urinary retention after hip fracture. Patient's past notes are reviewed. Patient is noted to be a difficult Guerrero catheter placement in the past. Patient is here today with his . Intermittent hematuria is appreciated. Patient is not currently weight-bearing. BPH: Presented to Urology Dec 2021 Patient is being seen for BPH today. He has previously had the following symptoms: slow stream, postvoid dribbling and nocturia x 2-4. Severity is moderate. He has tried tamsulosin. Finasteride added in Dec 2021. He has previously had no surgery done. Difficult Guerrero placement February 2023, retention after hip fracture due to fall Jan 2023. Problem has been present since last year. Problem is about the same. Current Outpatient Medications Medication Sig Dispense Refill AcesoBee SYSTEM W/DEVICE KIT Use up to four times a day as directed 1 Kit 0 CYANOCOBALAMIN (VITAMIN B-12) 100 MCG Tablet Take 1 Tablet by mouth every evening. Aspirin 81 MG Tablet Take 1 Tablet by mouth in the morning. Glucose Blood (beSUCCESSTOUCH ULTRA BLUE) STRP USE UP TO FOUR TIMES A DAY DIRECTED (Patient not taking: Reported on 12/13/2022) 400 Strip 1 beSUCCESSTOUCH ULTRASOFT LANCETS MISC Use up to four times a day as directed 400 Box Dosing Unit 2 gabapentin (NEURONTIN) 100 MG Capsule TAKE 2 CAPSULES BY MOUTH 3 TIMES A DAY (Patient taking differently: 3 Capsules in the morning and 3 Capsules at noon and 3 Capsules in the evening and 3 Capsulesbefore bedtime.) 540 Cap 1 Nitroglycerin 0.4 MG Sublingual Tablet Sublingual (Nitrostat) TAKE 1 EVERY 5 MINUTES NEEDED FOR CHEST PAIN USE UP TO 3 IN 15 MINUTES (Patient not taking: Reported on 12/06/2022) 25 Tab 3 Amoxicillin 500 MG Oral Capsule (Amoxil) TAKE 4 CAPS 1 HOUR PRIOR TO APT (Patient not taking: Reported on 12/06/2022) Acetaminophen 325 MG Oral Tablet (Tylenol) Take 1 Tablet by mouth every 6 hours as needed. Docusate Sodium 100 MG Oral Capsule Take 1 Capsule by mouth in the morning. Diclofenac Sodium 1 % External Gel (Voltaren) Apply 1 Applicatorful topically to affected area 4 times a day as needed. Apply to affected area as needed Amitriptyline HCl 50 MG Oral Tablet (Elavil) at bedtime. Tamsulosin HCl 0.4 MG Oral Capsule (Flomax) TAKE 1 CAPSULE BY MOUTH EVERY DAY 90 Capsule 3 HYDROcodone-Acetaminophen 5-325 MG Oral Tablet Take 1 Tablet by mouth every 8 hours as needed for Pain, Mild, Pain, Breakthrough or Pain, Severe. (Patient not taking: Reported on 12/06/2022) 30 Tablet0 HYDROcodone-Acetaminophen 5-325 MG Oral Tablet Take 1 Tablet by mouth every 8 hours as needed for Pain, Mild. (Patient not taking: Reported on 12/06/2022) 30 Tablet 0 Finasteride 5 MG Oral Tablet (Proscar) TAKE 1 TABLET BY MOUTH EVERY DAY IN THE MORNING 90 Tablet 3 Losartan Potassium 100 MG Oral Tablet (Cozaar) TAKE 1 TABLET DAILY 90 Tablet 3 Clopidogrel Bisulfate 75 MG Oral Tablet (pLAVix) Take 1 Tablet by mouth in the morning. 90 Tablet 3 hydroCHLOROthiazide 12.5 MG Oral Capsule (Hydrodiuril) TAKE 1 CAPSULE BY MOUTH EVERY DAY 90 Capsule1 metFORMIN HCl 1000 MG Oral Tablet (Glucophage) TAKE 1 TABLET BY MOUTH EVERY DAY WITH BREAKFAST 90 Tablet 1 Repatha Pushtronex System 420 MG/3.5ML Subcutaneous Solution Cartridge (Evolocumab with Infusor) Inject 420 mg (1 cartridge) under the skin Every Month. 10.5 mL 3 Atenolol 50 MG Oral Tablet (Tenormin) TAKE 1 TABLET BY MOUTH TWICE A DAY 180 Tablet 1 No current facility-administered medications for this visit. Review of patient's allergies indicates: Allergen Reactions Atorvastatin Muscle pain Crestor [Rosuvastatin] Pregabalin Simvastatin Muscle pain Statins Social History: Social History Tobacco Use Smoking status: Former Types: Cigars Quit date: 06/11/2000 Years since quittin.8 Smokeless tobacco: Never Substance Use Topics Alcohol use: Yes Comment: RARE-1/2 beer every 6 days Vaping/E-Cigarette Use Vaping/E-Cigarette Use Never User Vaping/E-Cigarette Substances Vaping/E-Cigarette Devices Past Surgical History: Procedure Laterality Date CARDIAC ANGIOPLASTY, PERCUTANEOUS, 1 ARTERY Right 01/24/2019 PTCA, CARDIAC ANGIOPLASTY, PERCUTANEOUS, 1 ARTERY performed by Rojas Pena DO [place] [facility] [place] THRU STOMA, W/BIOPSY 03/27/2006 adenomatous polyp--repeat 1 year COLONOSCOPY W/ LESION REMOVAL, SNARE 05/31/2007 repeat 1yr adenomatous COLONOSCOPY W/ LESION REMOVAL, SNARE 06/09/2008 repeat 1-3 COLONOSCOPY W/ LESION REMOVAL, SNARE 08/07/2009 one polyp, path shows small villous adenoma repeat in 1 year COLONOSCOPY W/ LESION REMOVAL, SNARE 08/19/2010 Adenomatous polyp COLONOSCOPY, DIAGNOSTIC (RECTUM) 09/01/2011 COLONOSCOPY FLEXIBLE PROXIMAL DIAGNOSTIC performed by James Birmingham MD at [facility]OSCOPY [facility], adenomatous polyps repeat colonoscopy in 2 years COLONOSCOPY, DIAGNOSTIC (RECTUM) 11/13/2013 normal, repeat 3 yrs/COLONOSCOPY FLEXIBLE PROXIMAL DIAGNOSTIC performed by James Birmingham MD at [facility]OSCOPY [facility] COLONOSCOPY, DIAGNOSTIC (RECTUM) 01/05/2017 adenomatous polyp, repeat 3 yrs/COLONOSCOPY FLEXIBLE PROXIMAL DIAGNOSTIC performed by James Birmingham MD at ENDOSCOPY [facility] COLONOSCOPY, DIAGNOSTIC (RECTUM) 01/22/2020 benign adenomatous polyp, repeat 3 yrs / COLONOSCOPY FLEXIBLE PROXIMAL DIAGNOSTIC performed by James Birmingham MD at ENDOSCOPY [facility] COLONOSCOPY, DIAGNOSTIC (RECTUM) 12/13/2022 diverticulosis/hemorrhoids/biopsies show adenomatous polyps/recall 3 years/COLONOSCOPY FLEXIBLE PROXIMAL DIAGNOSTIC performed by Melanie Quiros MD at ENDOSCOPY [facility] COLONOSCOPY, GI REFERRAL OP 08/15/2005 ulcer-tubular adenoma--repeat 6 months CORONARY ANGIOGRAPHY W/LEFT HEART CATH Right 01/09/2019 CORONARY ANGIOGRAPHY W/LEFT HEART CATH performed by Rojas Pena DO [place] [facility] [place]ATE/UVULA SURGERY NEC 03/31/1999 UVULOPALATOPHARYNGOPLASTY [facility] [place] REVJ TOT HIP ARTHRP FEM ONLY W/WO ALGRFT Left 02/06/2023 hip prostetic revision, for - [facility] REMOVE TONSILS & ADENOIDS, AGE 12+ TOTAL HIP REPLACEMENT & PROSTHESIS Left 09/21/2017 VASECTOMY Past Medical History: Diagnosis Date Benign neoplasm of colon 03/27/2006 adenomatous polyp--repeat 1 year Benign neoplasm of colon 05/31/2007 adenomatous; repeat colonoscopy in 1 yr Benign neoplasm of colon 08/07/2009 one polyp, path shows small villous adenoma repeat in 1 year Benign neoplasm of colon Benign neoplasm of colon 08/19/2010 Adenomatous polyp Benign neoplasm of colon 09/01/2011 COLONOSCOPY FLEXIBLE PROXIMAL DIAGNOSTIC performed by Jamse Birmingham MD at [facility], adenomatous polyps repeat colonoscopy in 2 year Diabetic polyneuropathy associated with type 2 diabetes mellitus (HCC) 08/20/2018 Dupuytren's contracture HTN, goal below 140/90 HTN, goal to be determined Old myocardial infarct Sleep apnea Patient Active Problem List Diagnosis Code CORONARY ATHEROSCLER. OF [place] CORONARY VESSEL I25.10 OTHER AND UNSPECIFIED SLEEP APNEA G47.30 OLD MYOCARDIAL INFARCT I25.2 HTN, goal below 140/90 I10 Dyslipidemia, goal LDL below 100 E78.5 Type 2 diabetes mellitus with hemoglobin A1c goal of less than 7.0% ([facility]) E11.9 Albuminuria R80.9 Diabetic polyneuropathy associated with type 2 diabetes mellitus ([facility]) E11.42 S/P primary angioplasty with coronary stent Z95.5 Atherosclerosis of [place] coronary artery with angina pectoris ([facility]) I25.119 BPH with obstruction/lower urinary tract symptoms N40.1, N13.8 Post-void dribbling N39.43 Nocturia R35.1 History of nonmelanoma skin cancer Z85.828 TMJ (dislocation of temporomandibular joint), initial encounter S03.00XA Male : See HPI Cystoscopy Procedure Note: Patient was properly identified and appropriate consent was confirmed. Risks and benefits of the procedure were reviewed and the patient was prepped and draped in the standard fashion for the procedure. A well lubricated 16 Indonesian flexible cystoscope was introduced through the meatus into the urethra. Urethra demonstrated inflammation and old blood, no clear trauma . Prostatic urethra demonstrated moderate lateral lobe prostatic obstruction, varicosities, engorgement, and active bleeding. Bladder neck was visualized and bladder was entered. Sterile saline irrigation was used to distend the bladder which was noted to have mobile debris and diffuse inflammation consistent with indwelling Guerrero catheter with grade 3 trabeculation. Bladder was completely inspected including retroflexion of the scope. Ureteral orifices were noted to be difficult to visualize secondary to inflammation. After this was completed the cystoscope was removed. Patient tolerated the procedure well without complicat ions or difficulties. Certified Industrial Hygienist was present for entire procedure. Patient was filled with greater than 300 mL, able to void approximately 50 mL. Catheter placed for greater than 500 mL of bloody urine with old clot. Catheter irrigated until clear. Perioperative Bactrim was provided. Impression/Plan: 82-year-old male with persistent urinary retention. Especially considering the patient's lack of ambulatory status, I think leaving the Guerrero catheter in place is rae. He may be leaving rehab in the next 10 days. Patient can contact our service for nursing visit for catheter care instruction. Will plan on trial of void/Guerrero catheter exchange in 1 month. Will see the patient in 2 months. He should be a candidate for [facility] TURP if necessary for persistent urinary retention going into the future. Above content is personally reviewed. Patientvocalizes good understanding of the treatment plan. Waqas Grewal MD 1:01 PM 03/27/2023 documented in this encounter Plan of Treatment Upcoming Encounters Date Type Department Care Team (Late st Contact Info) Description 04/10/2023 3:20 PM EST Office Visit General Internal Medicine [facility] [address] [facility] [place] [id number] Jimmy Gama MD [address] [facility] [place] [address] 05/30/2023 2:30 PM EDT Office Visit Cardiology, [facility] [address] [facility] [place] [address] Gema Castro CRNP [address] [place] [address] 07/27/2023 10:45 AM EDT Office Visit Ophthalmology, [facility] [address] [facility] [place] [address] Patric Dupont DO [address] [place] [address] 08/22/2023 4:00 PM EDT Office Visit Urology, [facility] [address] [facility] [place] [address] Waqas Grewal MD [address] [place] [address] Scheduled Orders Name Type Priority Associated Diagnoses Orde r Schedule CYSTOSCOPY Procedures Routine Hematuria, gross Ordered: 03/27/2023 Scheduled Procedures Name Priority Associated Diagnoses Date/Ti me COLONOSCOPY FLEXIBLE PROXIMA L DIAGNOSTIC Recall History of colonic polyps Health Maintenance Due Date Last Done Comments Zoster Vaccines (2 of 3) 04/18/2017 02/21/2017 COVID-19 Vaccine ( season) 2022 01/12/2022, 07/02/2021, 01/06/2021, Additional history exists Influenza Vaccine (FLU shot) (#1) 2022 02/21/2022, 12/10/2019, 02/11/2003 HbA1c 03/17/2023 09/14/2022, 02/10, 08/03/2021, Additional history exists Diabetic Foot Exam 08/30/2023 08/29/2022, 0 08/02/2021, 09/16/2020, Additional history exists Albumin/Creatinine Ratio 09/15/2023 023, 08/03/2021, 10/06/2020, Additional history exists B-12 09/15/2023 09/14/2022, 07/12, 09/16/2020, Additional history exists Depression Screening 11/30/2023 11/29/2022 Diabetic Eye Exam 12/15/2023 12/14/2022, , 12/07/2021, Additional history exists GFR 02/29/2024 02/28/2023, 02/10, 02/14/2023, Additional history exists COLONOSCOPY-EVERY 3 YRS AGES 18-100 12/13/2025 12/13/2022, 12/13/2022, 01/22/2020, Additional history exists DTaP,Tdap,and Td Vaccines (2 - Td or Tdap) 02/21/2027 02/21/2017, 04/01/2008, 04/10/1996, Additional history exists Hepatitis B Completed 04/02/2008, 03/14, 09/19/2005, Additional history exists Pneumococcal Vaccine: 65+ Years Completed 11/07/2016, 09/20/2007, 11/25/2002 GARDASIL-HPV IMMUNIZATION SERIES Aged Out No longer eligible based on patient's age to complete this topic MENINGOCOCCAL (MENACTRA/MENVEO) Aged Out No longer eligible based on patient's age to complete this topic documented as of this encounter Medical Devices Not on filedocumented as of this encounter Visit Diagnoses Diagnosis Hematuria, gross- Primary Gross hematuria BPH with obstruction/lower urinary tract symptoms Hypertrophy of prostate with urinary obstruction and other lower urinary tract symptoms (LUTS) Retention of urine Retention of urine, unspecified documented in this encounter Advance Directives Latest Code Status on File Code Status Date Activated Date Inactivated Comments Full Code 01/24/2019 11:27 AM 01/25/2019 2:02 PM Th is order reflects the patients wishes and were consensually agreed upon. Question Answer Comments Discussion of Advance Directives occurred with: Patient Does the patient have a Living Will? No Does the patient have Health Care Power of Nutrition Helper? No Care Teams Senior Process Analyst Relationship Specialty Start Date End Date Jimmy Gama MD [address] [place] [address] PCP - General Internal Medicine 12/31/20 documented as of this encounter
--- OUTSIDE RECORDS SUMMARY | 2023-03-28 03:42 | External Medical Summary | Summary of Care ---
Author Name Unknown Organization [facility] Address [address] [address] Phone [phone] Care Team Providers Care Radio Personality Name Role Phone Jimmy Gama MD Primary Care Provider + Reason for Visit * Reason Onset Date Comments Advice 03/15/2023 Encounter Details Date Type Department Care Team (Late st Contact Info) Description 03/15/2023 Telephone General Internal Medicine [facility] [place] [address] [place] [address] Jimmy Gama MD [address] [place] [id number] Advice Allergies Active Allergy Reactions Criticality Noted Date Comments Atorvastatin Muscle pain Medium 09/03/2014 Rosuvastatin 06/02/2015 Pregabalin 08/15/2017 Simvastatin Muscle pain 03/31/2014 Statins 09/06/2017 documented as of this encounter (statuses as of 03/21/2023) Medications Medication Sig Dispensed Refills Start Date End Date Status [employer] W/DEVICE KITIndications:Elect rolyte and fluid disorder Use up to four times a day as directed 1 Kit 0 10/27/2009 Active CYANOCOBALAMIN (VITAMIN B-12) 100 MCG Tablet Take 1 Tablet by mouth every evening. 0 Active Aspirin 81 MG Tablet Take 1 Tablet by mouth in the morning. 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 OF [place] CORONARY VESSEL 06/27/2001 OTHER AND UNSPECIFIED SLEEP APNEA documented as of this encounter (statuses as of 03/21/2023) Resolved Problems Problem Noted Date Diagnosed Date [...] 06/27/2001 02/25/2009 Overview: Per Lipid Taxonomy. Acute CO, anterior wall 06/27/200110/12 HYPERTENSION NOS 02/02/2009 Overview: Modified per HTN protocol #16. OBESITY, UNSPECIFIED 010 Overview: Per Obesity Taxonomy documented as of this encounter (statuses as of 03/21/2023) Immunizations Name Administration Dates Next Due COVID-19 [...] on file documented as of this encounter Miscellaneous Notes * Telephone Encounter - Jose Bullard CMA - 03/21/2023 10:02 AM EST Left message with [employer] to return call. * Telephone Encounter - Jimmy Gama MD - 03/16/2023 9:17 AM EST Who is managing his care there?! When I spoke to him on the phone on 03/03/23 when he no showed us here, he mentioned he has a jewel setter seeing him as primary until he is home. I have not seen any orders for him since he has been there. They should defer to who is taking care of him there. I see no active insulin orders on his chart. * Telephone Encounter - Elizabeth Jones LPN - 03/15/2023 3:42 PM EST Alisa calling from [facility] [place]. It is a personal care facility. Patient lives there now. He moved in around the February. Their pharmacy needs clarification of his insulin. It is stated on their list Humulin R standard sliding scale insulin. Low dose indication hyperglycemia, subcutaneous, ac/hs. 02/13/23 less than 70 This is the information they have. Need clarification if he is to have it and what parameters. Asking for a call back. [phone] * Telephone Encounter - Tayla Thomas OSA - 03/15/2023 3:36 PM EST Reason for patient's call: Alisa is calling in regards to speaking to a nurse about the pt. Caller was transferred to [facility] at the nurse line. documented in this encounter Plan of Treatment Upcoming Encounters Date Type Department Care Team (Late st Contact Info) Description 03/27/2023 2:00 PM EST Procedure Only Urology, [facility] [address] [place] [address] Waqas Grewal MD [address] [place] [address] [place] [address] 04/10/2023 3:20 PM EST Office Visit General Internal Medicine [facility] [address] [place] [address] Jimmy Gama MD [address] [place] [address] 05/30/2023 2:30 PM EDT Office Visit Cardiology, [facility] [address] [place] [address] Gema Castro CRNP [address] [place] [address] 07/27/2023 10:45 AM EDT Office Visit Ophthalmology, [facility] [address] [place] [address] Patric Dupont, [address] [place] [address] 08/22/2023 4:00 PM EDT Office Visit Urology, [facility] [address] [facility] [place] [address] Waqas Grewal MD [address] [place] [address] [place] [address] Scheduled Procedures Name Priority Associated Diagnoses Date/Ti me COLONOSCOPY FLEXIBLE PROXIMA L DIAGNOSTIC Recall History of colonic polyps Health Maintenance Due Date Last Done Comments Zoster Vaccines (2 of 3) 04/18/2017 02/21/2017 COVID-19 Vaccine (2022- season) 2022 01/12/2022, 07/02/2021, 01/06/2021, Additional history [...] Not on filedocumented as of this encounter Advance Directives Latest Code Status on File Code Status Date Activated Date Inactivated Comments Full Code 01/24/2019 11:27 AM 01/25/2019 2:02 PM Th is order reflects the patients wishes and were consensually agreed upon. Question Answer Comments Discussion of Advance Directives occurred with: Patient Does the patient have a Living Will? No Does the patient have Health Care Power of Stenotype Machine Operator? No Care Teams Radio Personality Relationship Specialty Start Date End Date Jimmy Gama MD [address] [facility] [place] [address] PCP - General Internal Medicine 12/31/20 documented as of this encounter
[2023-03-28] MEDS: NOREPINEPHRINE/D5W 4 MG/250 ML PLCT IV SCH ×2 (04:04→10:03)
[2023-03-28 05:04] LABS: BUN Creatinine Ratio 14.9 (10-20); Calcium 7.4 mg/dl (8.6-10.3); Creatinine Clr Calc Pharmacy 24.6 ml/min; Est GFR (African American) 23.5 ml/min; Est GFR (Non-African American) 20.3 ml/min; Magnesium 2.2 mg/dl (1.7-2.4); Potassium 4.5 mmol/L (3.5-5.1)
[2023-03-28] MEDS ORDERED: LANTUS PER UNIT CHARGE SQ STA (05:06)
[2023-03-28 06:08] LABS: Basophils # (auto) 0.01 K/uL (0.00-0.20); Basophils % (auto) 0.1 %; Hematocrit (blood only) 28.9 % (42.0-52.0); Hemoglobin 9.9 g/dl (14.0-18.0); Immature Granulocytes # (auto) 0.15 K/uL (0.01-0.20); Immature Granulocytes % (auto) 1.5 %; Lymphocytes # (auto) 0.61 K/uL (1.20-3.40); Lymphocytes % (auto) 6.1 %; Mean Corpuscular Hemoglobin 30.2 pg (25.0-34.0); Mean Corpuscular Hgb Conc 34.3 g/dL (32.0-36.0); Mean Corpuscular Volume 88.1 fL (80.0-100.0); Mean Platelet Volume 10.9 fL (9.4-12.4); Monocytes # (auto) 0.22 K/uL (0.11-0.59); Monocytes % (auto) 2.2 %; Neutrophils # (auto) 8.95 K/uL (1.40-6.50); Neutrophils % (auto) 90.1 %; Platelet Count 72 K/uL (130-400); RDW Coefficient of Variation 15.3 % (11.5-14.5); RDW Standard Deviation 49.5 fL (36.4-46.3); Red Blood Count 3.28 M/uL (4.70-6.10); White Blood Count 9.94 K/ul (4.8-10.8)
--- NOTE | 2023-03-28 06:51 | XRay Report ---
XR chest 1V portable CLINICAL HISTORY: fever, weak TECHNIQUE: Single frontal radiograph of the chest was obtained. Comparison: Comparison is made to chest radiograph 02/17/2023 FINDINGS: No lines and tubes are seen. Calcified aortic knob is seen. The lungs are clear. Elevation of left he midiaphragm is seen. No evidence of pleural effusion or pneumothorax. IMPRESSION: No acute chest disease. ACT 112: Negative or not required by law. Electronically signed by: Srinivasan Rodriguez M.D. 03/28/2023 6:49 AM
[2023-03-28 07:01] LABS: Estimated Average Glucose 100 mg/dl; Hemoglobin A1C 5.1 % (4.5-5.6)
--- NOTE | 2023-03-28 08:41 | Critical Care Progress Note ---
Date of Service March 28, 2023 Assessment & Plan (1) Confusion: (2) Septic shock: (3) Acute kidney injury: Plan 1. Septic shock 2/2 urinary tract infection and bacterial dissemination with tract manipulation following maurice placement 2. JESÚS on CKD, prerenal 3. Lactic acidosis, improving 4. Thrombocytopenia, likely due to sepsis 5. Hyponatremia, mild,hypovolemic 6. Urinary tract obstruction, BPH, indwelling maurice 7. Metabolic encephalopathy 2/2 #1 and associate hypotension, improving Neurologic Avoid sedating medications CAM-ICU: negative Delirium precautions Home Elavil, Gabapentin at lower dose Hold home PRN Atarax for now Cardiovascular Weaned off nor epi. Hold hold antihypertensives Hold DAPT overnight pending clearance of hematuria Hold antihypertensives and tamsulosin. Respiratory HOB upright Patient uncertain if he uses CPAP at home Aspiration precautions Respiratory-driven protocol IS/Flutter Gastrointestinal/Nutrition Diet: NPO except meds following dysphagia screen SUP: Home PPI Bowel regimen: Senna, PRN Miralax Endocrine Hold home oral antihypergllycemics SSI for BG goal 140-180 per SCCM guidelines Infectious Disease Continue Zosyn pending culture data BC x2 pending, UA +, UCx pending, procalcitonin elevated, MRSA negative Prior culture data: 03/17/2023 with pansensitive e.coli and klebsiella Antibiotics stewardship Renal/Metabolic Trend metabolic panel, repeat lytes as indicated Suspect improvement with hydration lactate and creatinine improving. Home finasteride, tamsulosin Heme/Onc DVT PPX: SCDs. Holding DAPT L/T/D PIV x2 Maurice- placed as outpatient Family communication: Patient stable for downgrade to PCU status. Admission and Anticipated Discharge Date Admission Date: March 27, 2023 Subjective Patient seen and examined this morning. He is a bit delirious and apparently has some baseline dementia. He is able to follow some simple commands. He has been off of vasopressors for the past 3 hours. No acute issues currently. Review of Systems Review of Systems: Unobtainable due to cognitive status Physical Exam Constitutional: WD/WN, vitals as above Eyes: PERRL, conjunctivae normal, anicteric sclerae ENMT: Mouth: + dry oral mucous membranes Neck: trachea midline, no thyromegaly Respiratory: normal respiratory effort, lungs clear to auscultation Cardiovascular: RRR, no murmur, no edema Gastrointestinal (Abdomen): normal bowel sounds, soft, nontender, no hepatosplenomegaly Skin: no rashes, warm and dry Neurologic: PERRL, EOMI, accommodation nl, no face palsy, no dysarthria Psychiatric: Delirious, able to answer simple questions Genitourinary: Maurice in place Results & Data Results & Data Vital Signs (Past 12 Hours) Vital Signs Temp Pulse Pulse Resp BP BP Pulse Ox 03/28/23 08:00 64 18 100 03/28/23 08:00 89/58 L 03/28/23 07:45 103/58 L 03/28/23 07:45 63 18 100 03/28/23 07:30 64 20 100 03/28/23 07:30 96/53 L 03/28/23 07:15 95/58 L 03/28/23 07:15 64 19 98 03/28/23 07:00 90/49 L 03/28/23 07:00 64 18 100 03/28/23 06:45 64 18 99 03/28/23 06:45 95/57 L 03/28/23 06:30 91/59 L 03/28/23 06:30 64 19 100 03/28/23 06:15 64 18 100 03/28/23 06:15 105/64 03/28/23 06:00 67 17 98 03/28/23 06:00 118/65 03/28/23 05:45 66 19 97 03/28/23 05:45 105/63 03/28/23 05:30 65 20 95 03/28/23 05:30 113/64 03/28/23 05:20 66 20 95 03/28/23 05:15 68 19 95 03/28/23 05:15 111/64 03/28/23 05:10 66 20 95 03/28/23 05:05 65 20 95 03/28/23 05:00 111/62 03/28/23 05:00 67 21 95 03/28/23 04:55 66 21 95 03/28/23 04:50 66 21 95 03/28/23 04:45 107/59 L 03/28/23 04:45 66 21 95 03/28/23 04:40 67 21 94 03/28/23 04:35 67 22 95 03/28/23 04:30 67 21 96 03/28/23 04:30 98/58 L 03/28/23 04:25 69 21 95 03/28/23 04:20 69 20 96 03/28/23 04:15 105/59 L 03/28/23 04:15 68 21 95 03/28/23 04:10 69 22 95 03/28/23 04:05 72 21 95 03/28/23 04:00 71 21 96 03/28/23 04:00 105/58 L 03/28/23 03:55 69 21 94 03/28/23 03:50 70 21 94 03/28/23 03:45 72 22 93 03/28/23 03:45 103/53 L 03/28/23 03:40 71 23 94 03/28/23 03:35 72 21 93 03/28/23 03:30 99/55 L 03/28/23 03:30 73 22 92 03/28/23 03:25 73 23 93 03/28/23 03:20 74 23 92 03/28/23 03:15 75 23 93 03/28/23 03:15 106/62 03/28/23 03:10 74 22 93 03/28/23 03:05 74 22 94 03/28/23 03:00 108/60 03/28/23 03:00 74 24 94 03/28/23 02:55 76 24 93 03/28/23 02:50 75 23 91 03/28/23 02:45 77 21 91 03/28/23 02:45 107/64 03/28/23 02:40 80 27 H 92 03/28/23 02:35 80 20 89 L 03/28/23 02:30 77 26 H 91 03/28/23 02:30 111/62 03/28/23 02:25 77 24 91 03/28/23 02:20 77 24 90 03/28/23 02:15 117/62 03/28/23 02:15 76 26 H 89 L 03/28/23 02:10 77 25 H 90 03/28/23 02:05 77 25 H 91 03/28/23 02:00 79 24 90 03/28/23 02:00 114/63 03/28/23 01:55 77 24 91 03/28/23 01:50 79 23 90 03/28/23 01:45 79 24 90 03/28/23 01:45 104/58 L 01/16/24 01:40 79 23 90 03/28/23 01:35 79 24 91 03/28/23 01:30 118/60 03/28/23 01:30 81 24 91 03/28/23 01:25 79 26 H 92 03/28/23 01:20 79 26 H 91 03/28/23 01:15 85 31 H 93 03/28/23 01:15 121/66 03/28/23 01:10 81 25 H 92 03/28/23 01:05 82 25 H 92 03/28/23 01:00 113/61 03/28/23 01:00 83 25 H 92 03/28/23 00:55 88 27 H 93 03/28/23 00:50 84 25 H 93 03/28/23 00:45 85 26 H 94 03/28/23 00:45 111/58 L 03/28/23 00:40 85 24 95 03/28/23 00:35 85 25 H 94 03/28/23 00:30 108/58 L 03/28/23 00:30 86 25 H 94 03/28/23 00:25 86 24 93 03/28/23 00:20 88 29 H 94 03/28/23 00:15 89 29 H 93 03/28/23 00:15 110/54 L 03/28/23 00:10 88 24 89 L 03/28/23 00:06 96 H 03/28/23 00:05 89 28 H 90 03/28/23 00:00 93 03/28/23 00:00 109/53 L 03/27/23 23:55 91 H 31 H 92 03/27/23 23:50 91 H 32 H 93 03/27/23 23:45 90 29 H 94 03/27/23 23:45 115/60 03/27/23 23:40 90 29 H 95 03/27/23 23:36 03/27/23 23:35 90 27 H 93 03/27/23 23:30 93 H 27 H 93 03/27/23 23:30 114/55 L 03/27/23 23:25 93 H 17 95 03/27/23 23:20 91 H 20 93 03/27/23 23:15 106/51 L 03/27/23 23:15 93 H 25 H 93 03/27/23 23:10 93 H 32 H 94 03/27/23 23:05 94 H 20 95 03/27/23 23:00 03/27/23 23:00 103/51 L 03/27/23 23:00 94 H 26 H 95 03/27/23 22:58 37.4 C 96 H 16 103/51 L 96 03/27/23 22:55 96 H 32 H 97 03/27/23 22:55 90/53 L 03/27/23 22:54 96 H 18 96 03/27/23 22:26 03/27/23 22:10 101 H 34 H 96 03/27/23 22:05 93/51 L 03/27/23 22:05 101 H 31 H 94 03/27/23 22:00 90/53 L 03/27/23 22:00 100 H 28 H 95 03/27/23 21:55 102 H 34 H 93 03/27/23 21:55 94/53 L 03/27/23 21:50 98/54 L 03/27/23 21:50 102 H 28 H 96 03/27/23 21:45 79/48 L 03/27/23 21:45 100 H 27 H 95 03/27/23 21:41 73/46 L 03/27/23 21:41 100 H 23 94 03/27/23 21:40 73/46 L 03/27/23 21:40 100 H 29 H 94 03/27/23 21:35 101 H 26 H 91 03/27/23 21:35 87/50 L 03/27/23 21:30 86/49 L 03/27/23 21:30 102 H 19 93 03/27/23 21:25 100 H 27 H 94 03/27/23 21:25 75/47 L 03/27/23 21:20 102 H 26 H 95 03/27/23 21:20 81/48 L 03/27/23 21:15 101 H 24 91 03/27/23 21:15 83/49 L 03/27/23 21:10 83/49 L 03/27/23 21:10 101 H 25 H 91 03/27/23 21:05 78/50 L 03/27/23 21:05 101 H 25 H 91 03/27/23 21:00 78/49 L 03/27/23 21:00 101 H 24 92 03/27/23 20:55 78/50 L 03/27/23 20:55 100 H 27 H 94 03/27/23 20:50 75/46 L 03/27/23 20:50 100 H 25 H 90 03/27/23 20:45 69/47 L 03/27/23 20:45 100 H 26 H 92 03/27/23 20:40 101 H 23 93 03/27/23 20:40 73/46 L Pulse Ox O2 Del Method O2 Del Method 03/28/23 08:00 03/28/23 08:00 03/28/23 07:45 03/28/23 07:45 03/28/23 07:30 03/28/23 07:30 03/28/23 07:15 03/28/23 07:15 03/28/23 07:00 03/28/23 07:00 03/28/23 06:45 03/28/23 06:45 03/28/23 06:30 03/28/23 06:30 03/28/23 06:15 03/28/23 06:15 03/28/23 06:00 03/28/23 06:00 03/28/23 05:45 03/28/23 05:45 03/28/23 05:30 03/28/23 05:30 03/28/23 05:20 03/28/23 05:15 03/28/23 05:15 03/28/23 05:10 03/28/23 05:05 03/28/23 05:00 03/28/23 05:00 03/28/23 04:55 03/28/23 04:50 03/28/23 04:45 03/28/23 04:45 03/28/23 04:40 03/28/23 04:35 03/28/23 04:30 03/28/23 04:30 03/28/23 04:25 03/28/23 04:20 03/28/23 04:15 03/28/23 04:15 03/28/23 04:10 03/28/23 04:05 03/28/23 04:00 03/28/23 04:00 03/28/23 03:55 03/28/23 03:50 03/28/23 03:45 03/28/23 03:45 03/28/23 03:40 03/28/23 03:35 03/28/23 03:30 03/28/23 03:30 03/28/23 03:25 03/28/23 03:20 03/28/23 03:15 03/28/23 03:15 03/28/23 03:10 03/28/23 03:05 03/28/23 03:00 03/28/23 03:00 03/28/23 02:55 03/28/23 02:50 03/28/23 02:45 03/28/23 02:45 03/28/23 02:40 03/28/23 02:35 03/28/23 02:30 03/28/23 02:30 03/28/23 02:25 03/28/23 02:20 03/28/23 02:03/28/23 02:03/28/23 02:10 03/28/23 02:05 03/28/23 02:00 03/28/23 02:00 03/28/23 01:55 03/28/23 01:50 03/28/23 01:45 03/28/23 01:45 03/28/23 01:40 03/28/23 01:35 03/28/23 01:30 03/28/23 01:30 03/28/23 01:25 03/28/23 01:20 03/28/23 01:03/28/23 01:15 03/28/23 01:10 03/28/23 01:05 03/28/23 01:00 03/28/23 01:00 03/28/23 00:55 03/28/23 00:50 03/28/23 00:45 03/28/23 00:45 03/28/23 00:40 03/28/23 00:35 03/28/23 00:30 03/28/23 00:30 03/28/23 00:03/28/23 00:03/28/23 00:03/28/23 00:03/28/23 00:10 03/28/23 00:06 03/28/23 00:05 03/28/23 00:00 03/28/23 00:00 03/27/23 23:55 03/27/23 23:50 03/27/23 23:45 03/27/23 23:45 03/27/23 23:40 03/27/23 23:36 92 Room Air 03/27/23 23:35 03/27/23 23:30 03/27/23 23:30 03/27/23 23:25 03/27/23 23:20 03/27/23 23:15 03/27/23 23:15 03/27/23 23:10 03/27/23 23:05 03/27/23 23:00 Room Air 03/27/23 23:00 03/27/23 23:00 03/27/23 22:58 Room Air 03/27/23 22:55 03/27/23 22:55 03/27/23 22:54 03/27/23 22:26 Room Air 03/27/23 22:10 03/27/23 22:05 03/27/23 22:05 03/27/23 22:00 03/27/23 22:00 03/27/23 21:55 03/27/23 21:55 03/27/23 21:50 03/27/23 21:50 03/27/23 21:45 03/27/23 21:45 03/27/23 21:41 03/27/23 21:41 03/27/23 21:40 03/27/23 21:40 03/27/23 21:35 03/27/23 21:35 03/27/23 21:30 03/27/23 21:30 03/27/23 21:25 03/27/23 21:25 03/27/23 21:20 03/27/23 21:20 03/27/23 21:15 03/27/23 21:15 03/27/23 21:10 03/27/23 21:10 03/27/23 21:05 03/27/23 21:05 03/27/23 21:00 03/27/23 21:00 03/27/23 20:55 03/27/23 20:55 03/27/23 20:50 03/27/23 20:50 03/27/23 20:45 03/27/23 20:45 03/27/23 20:40 03/27/23 20:40 Coding Level of Care Code 44329 SUB INP/OBS CARE 235MIN Diagnoses Confusion R41.0 Septic shock A41.9; R65.21 Acute kidney injury N17.9
[2023-03-28] MEDS: FINASTERIDE 5 MG TAB PO SCH (08:45)
[2023-03-28] MEDS: DOCUSATE SODIUM 100 MG CAP PO SCH ×2 (08:45→20:35)
[2023-03-28] MEDS: GABAPENTIN 300 MG CAP PO SCH ×2 (08:46→17:16)
[2023-03-28] MEDS: FERROUS SULFATE 325 MG TAB PO SCH (08:46)
[2023-03-28 08:49] LABS: A calco-baum cmplx NotReported Not Detected (NotDetected); Bact fragilis Not Reported Not Detected (NotDetected); Blood Culture Id Panel See PCR Comment (NotDetected); C auris Not Reported Not Detected (NotDetected); CTX-M Resistant Gene Not Detected (NotDetected); Calbicans Not Reported Not Detected (NotDetected); Candida glabrata Not Reported Not Detected (NotDetected); Candida krusei Not Reported Not Detected (NotDetected); Cneoformans/gatti Not Reported Not Detected (NotDetected); Cparapsilosis Not Reported Not Detected (NotDetected); E cloacae compx Not Reported Not Detected (NotDetected); Efaecalis Not Reported Not Detected (NotDetected); Efaecium Not Reported Not Detected (NotDetected); Enterobacterales DETECTED (NotDetected); Enterobacterales Not Reported DETECTED (NotDetected); Escherichia coli Not Reported DETECTED (NotDetected); H influenzae Not Reported Not Detected (NotDetected); IMP Resistant Gene Not Detected (NotDetected); K aerogenes Not Reported Not Detected (NotDetected); KPC Resistant Gene Not Detected (NotDetected); Koxytoca Not Reported Not Detected (NotDetected); Kpneumoniae grp Not Reported Not Detected (NotDetected); Lmonocyt Not Reported Not Detected (NotDetected); N meningitidis Not Reported Not Detected (NotDetected); NDM Resistant Gene Not Detected (NotDetected); OXA 48 Like Resistant Gene Not Detected (NotDetected); P aeruginosa Not Reported Not Detected (NotDetected); Proteus spp Not Reported Not Detected (NotDetected); Salmonella spp Not Reported Not Detected (NotDetected); Smarcescens Not Reported Not Detected (NotDetected); Staph lugdunensis Not Reported Not Detected (NotDetected); Staph spp. Not Reported Not Detected (NotDetected); Staphaureus Not Reported Not Detected (NotDetected); Staphepi Not Reported Not Detected (NotDetected); Stenmaltophilia Not Reported Not Detected (NotDetected); Strep agal(GrpB) Not Reported Not Detected (NotDetected); Strep pneum Not Reported Not Detected (NotDetected); Strep pyog (GrpA) Not Reported Not Detected (NotDetected); Strep spp Not Reported Not Detected (NotDetected); VIM Resistant Gene Not Detected (NotDetected); mcr-1 Colistin Resistant Gene Not Detected (NotDetected)
[2023-03-28] MEDS ORDERED: TAMSULOSIN HCL 0.4 MG CAP PO SCH (09:00)
[2023-03-28] MEDS: CEFEPIME 1,000 MG in SYRINGE 0 ML IV SCH ×2 (12:23→23:45)
--- NOTE | 2023-03-28 14:31 | Hospitalist Progress Note ---
Date of Service March 28, 2023 Assessment & Plan (1) Septic shock: Plan: SEPTIC SHOCK SIRS PLUS HYPOTENSION PLUS ARF PLUS LACTIC ACIDOSIS PLUS ENCEPHALOPATHY PLUS THROMBOCYTOPENIA SECONDARY TO COMPLICATED UTI HX BPH WITH CHRONIC INDWELLING PARADA CATHETER SINCE LEFT HIP FRACTURE SURGERY LAST 01/2023 RECENT INSTRUMENTATION Off Levophed since 5:30 AM, transferred to telemetry unit Urine culture March 17: E. coli, Klebsiella Blood cultures: Gram-negative bacilli Urine culture: Gram-negative bacilli Repeat blood cultures ordered for tomorrow Continue IV cefepime day #1 Follow-up cultures Parada catheter already exchanged prior to admission during cystoscopy THROMBOCYTOPENIA Likely secondary to sepsis Monitor CBC BUTTOCK WOUNDS Photos reviewed Wound care consulted CHRONIC DIASTOLIC HEART FAILURE (EF 55 to 59%, TTE 2019) -patient on the dry side Has received fluid boluses -Encourage oral fluid intake HX CAD STATUS POST STENT -No cardiac symptoms hyperlipidemia/statin intolerance JASPAL status post surgery DM2 on oral medications, well-controlled as of recent hemoglobin A1c of 6.3 last September 2022 chronic anemia, stable hemoglobin, postop hemoglobin 9-10 from review of records past tobacco abuse Appropriate to hold home BP meds for now given hypotension Appropriate to hold home narcotics and neuropsychotropic medications until patient mentation back to baseline. Appropriate to hold home antiplatelet Rx given hematuria and new onset thro mbocytopenia DVT prophylaxis. SCDs Re: Hematuria/thrombocytopenia Full code Disposition Lives at home PT and OT evaluation Admission and Anticipated Discharge Date Admission Date: March 27, 2023 Subjective Follow-up for septic shock, UTI secondary to Parada catheter, etc. Seen resting in bed, comfortable, not in distress Off Levophed since 5:30 AM States he feels fine overall Feeling better compared to yesterday No fevers or chills, abdominal pain, back pain no chest pain, dyspnea, palpitations, dizziness No abdominal pain, nausea vomiting No other new symptoms Review of Systems Review of Systems: all noted and negative except for above Physical Exam Physical Exam: General- oriented x 3, not in distress, speaks in sentences with no effort or accessory muscle use Eyes- anicteric Neck- no JVD Lungs- clear breath sounds bilaterally, no rales/wheezes Heart- normal rate, regular rhythm; no murmurs Abdomen- normal bowel sounds, nondistended, soft, no tenderness Parada catheter in place: Yellow urine Extremities- no pretibial edema, no calf tenderness Neuro- alert, oriented x 3; no gross focal neurologic deficits Skin- warm & dry Results & Data Results & Data Vital Signs (Past 12 Hours) Vital Signs Pulse Resp BP Pulse Ox O2 Del Method 03/28/23 10:40 Room Air 03/28/23 09:30 64 16 100 03/28/23 09:30 111/66 03/28/23 09:25 64 20 98 03/28/23 09:20 60 16 100 03/28/23 09:15 104/61 03/28/23 09:15 62 16 100 03/28/23 09:10 63 17 100 03/28/23 09:05 63 17 100 03/28/23 09:00 64 16 100 03/28/23 09:00 113/68 03/28/23 08:55 66 20 100 03/28/23 08:50 67 24 100 03/28/23 08:45 67 13 100 03/28/23 08:45 107/62 03/28/23 08:40 67 20 100 03/28/23 08:35 68 17 100 03/28/23 08:30 61 20 100 03/28/23 08:30 107/59 L 03/28/23 08:25 65 18 100 03/28/23 08:20 64 23 100 03/28/23 08:15 115/77 03/28/23 08:15 67 19 100 03/28/23 08:10 66 18 100 03/28/23 08:05 64 16 100 03/28/23 08:00 66 03/28/23 08:00 64 18 100 03/28/23 08:00 89/58 L 03/28/23 07:45 103/58 L 03/28/23 07:45 63 18 100 03/28/23 07:30 64 20 100 03/28/23 07:30 96/53 L 03/28/23 07:15 95/58 L 03/28/23 07:15 64 19 98 03/28/23 07:00 90/49 L 03/28/23 07:00 64 18 100 03/28/23 06:45 64 18 99 03/28/23 06:45 95/57 L 03/28/23 06:30 91/59 L 03/28/23 06:30 64 19 100 03/28/23 06:15 64 18 100 01/16/24 06:15 105/64 03/28/23 06:00 67 17 98 03/28/23 06:00 118/65 03/28/23 05:45 66 19 97 03/28/23 05:45 105/63 03/28/23 05:30 65 20 95 03/28/23 05:30 113/64 03/28/23 05:20 66 20 95 03/28/23 05:15 68 19 95 03/28/23 05:15 111/64 03/28/23 05:10 66 20 95 03/28/23 05:05 65 20 95 03/28/23 05:00 111/62 03/28/23 05:00 67 21 95 03/28/23 04:55 66 21 95 03/28/23 04:50 66 21 95 03/28/23 04:45 107/59 L 03/28/23 04:45 66 21 95 03/28/23 04:40 67 21 94 03/28/23 04:35 67 22 95 03/28/23 04:30 67 21 96 03/28/23 04:30 98/58 L 03/28/23 04:25 69 21 95 03/28/23 04:20 69 20 96 03/28/23 04:15 105/59 L 03/28/23 04:15 68 21 95 03/28/23 04:10 69 22 95 03/28/23 04:05 72 21 95 03/28/23 04:00 71 21 96 03/28/23 04:00 105/58 L 03/28/23 03:55 69 21 94 03/28/23 03:50 70 21 94 03/28/23 03:45 72 22 93 03/28/23 03:45 103/53 L 03/28/23 03:40 71 23 94 03/28/23 03:35 72 21 93 03/28/23 03:30 99/55 L 03/28/23 03:30 73 22 92 03/28/23 03:25 73 23 93 03/28/23 03:20 74 23 92 03/28/23 03:15 75 23 93 03/28/23 03:15 106/62 03/28/23 03:10 74 22 93 03/28/23 03:05 74 22 94 03/28/23 03:00 108/60 03/28/23 03:00 74 24 94 03/28/23 02:55 76 24 93 03/28/23 02:50 75 23 91 03/28/23 02:45 77 21 91 03/28/23 02:45 107/64 03/28/23 02:40 80 27 H 92 03/28/23 02:35 80 20 89 L 03/28/23 02:30 77 26 H 91 03/28/23 02:30 111/62 all noted and reviewed including below
[2023-03-28] MEDS: PANTOprazole 40 MG TAB PO SCH (20:34)
[2023-03-28] MEDS: SENNA 8.6 MG TAB PO SCH (20:34)
[2023-03-28] MEDS ORDERED: AMITRIPTYLINE HCL 50 MG TAB PO SCH (21:00)
[2023-03-29 04:38] LABS: Basophils # (auto) 0.01 K/uL (0.00-0.20); Basophils % (auto) 0.2 %; Eosinophils # (auto) 0.05 K/uL (0.00-0.50); Hematocrit (blood only) 27.4 % (42.0-52.0); Hemoglobin 9.2 g/dl (14.0-18.0); Immature Granulocytes # (auto) 0.03 K/uL (0.01-0.20); Immature Granulocytes % (auto) 0.6 %; Lymphocytes # (auto) 0.88 K/uL (1.20-3.40); Mean Corpuscular Hemoglobin 29.6 pg (25.0-34.0); Mean Corpuscular Hgb Conc 33.6 g/dL (32.0-36.0); Mean Corpuscular Volume 88.1 fL (80.0-100.0); Mean Platelet Volume 11.1 fL (9.4-12.4); Monocytes # (auto) 0.32 K/uL (0.11-0.59); Monocytes % (auto) 6.2 %; Neutrophils # (auto) 3.89 K/uL (1.40-6.50); Platelet Count 57 K/uL (130-400); RDW Coefficient of Variation 14.9 % (11.5-14.5); RDW Standard Deviation 48.1 fL (36.4-46.3); Red Blood Count 3.11 M/uL (4.70-6.10); White Blood Count 5.18 K/ul (4.8-10.8)
[2023-03-29 04:44] LABS: Albumin Level 2.9 gm/dl (3.4-5.0); Calcium 8.1 mg/dl (8.6-10.3); Creatinine Clr Calc Pharmacy 47.9 ml/min; Est GFR (African American) 53.2 ml/min; Est GFR (Non-African American) 45.9 ml/min; Globulin 2.8 gm/dl (2.5-4.0); Magnesium 2.1 mg/dl (1.7-2.4); Phosphorus 2.1 mg/dl (2.5-4.9); Potassium 3.9 mmol/L (3.5-5.1); Total Protein 5.7 gm/dl (6.0-8.3)
--- NOTE | 2023-03-29 06:13 | Electrocardiogram Report ---
Test Reason : Blood Pressure : / mmHG Vent. Rate : 112 BPM Atrial Rate : 112 BPM P-R Int : 170 ms QRS Dur : 096 ms QT Int : 308 ms P-R-T Axes : 064 -43 074 degrees QTc Int : 420 ms Sinus tachycardia Left axis deviation Abnormal ECG When compared with ECG of 17-FEB-2023 22:59, No significant change was found Confirmed by Clifton Enrique ([id number]) on 03/29/2023 6:13:00 AM Referred By: REFERRED SELF Confirmed By:Clifton Enrique
[2023-03-29] MEDS: FERROUS SULFATE 325 MG TAB PO SCH (07:42)
[2023-03-29] MEDS: GABAPENTIN 300 MG CAP PO SCH ×2 (07:42→17:12)
[2023-03-29] MEDS: FINASTERIDE 5 MG TAB PO SCH (07:42)
[2023-03-29] MEDS: INSULIN ASPART PER UNIT CHARGE SC SCH ×4 (07:42→20:45)
[2023-03-29] MEDS: DOCUSATE SODIUM 100 MG CAP PO SCH ×2 (07:44→20:44)
[2023-03-29] MEDS ORDERED: LANTUS PER UNIT CHARGE SQ SCH (09:00)
[2023-03-29] MEDS: CEFEPIME 2,000 MG in SYRINGE 0 ML IV SCH ×2 (10:04→21:02)
--- NOTE | 2023-03-29 11:03 | Hospitalist Progress Note ---
Date of Service March 29, 2023 Assessment & Plan (1) Septic shock: Plan: SEPTIC SHOCK SIRS PLUS HYPOTENSION PLUS ARF PLUS LACTIC ACIDOSIS PLUS ENCEPHALOPATHY PLUS THROMBOCYTOPENIA SECONDARY TO COMPLICATED UTI, BACTEREMIA HX BPH WITH CHRONIC INDWELLING PARADA CATHETER SINCE LEFT HIP FRACTURE SURGERY LAST 01/2023 RECENT INSTRUMENTATION Urine culture March 17: E. coli, Klebsiella Blood cultures: Gram-negative bacilli Urine culture: Gram-negative bacilli Repeat blood cultures pending Continue IV cefepime Follow-up cultures Parada catheter exchanged prior to admission during cystoscopy ID consulted THROMBOCYTOPENIA Likely secondary to sepsis Monitor CBC BUTTOCK WOUNDS Photos reviewed Wound care consulted CHRONIC DIASTOLIC HEART FAILURE (EF 55 to 59%, TTE 2018) -patient on the dry side Has received fluid boluses -Encourage oral fluid intake HX CAD STATUS POST STENT -No cardiac symptoms hyperlipidemia/statin intolerance JASPAL status post surgery DM2 on oral medications, well-controlled as of recent hemoglobin A1c of 6.3 last September 2022 chronic anemia, stable hemoglobin, postop hemoglobin 9-10 from review of records past tobacco abuse Appropriate to hold home BP meds for now given hypotension Appropriate to hold home narcotics and neuropsychotropic medications until patient mentation back to baseline. Appropriate to hold home antiplatelet Rx given hematuria and new onset thrombocytopenia Pt improved today, likely will resume some of his home meds tmrw DVT prophylaxis. SCDs Re: Hematuria/thrombocytopenia Full code Disposition Lives at home PT and OT evaluation Admission and Anticipated Discharge Date Admission Date: March 27, 2023 Subjective Follow-up for septic shock, UTI secondary to Parada catheter, etc. Found to be bacteremic, urine cultx positive Seen sitting in chair, eating, comfortable, not in distress States he feels well overall , does not remember how he got into the hospital No fevers or chills, chest pain, shortness of breath, abdominal pain, back pain Cr improved ID consulted Review of Systems Review of Systems: All systems reviewed & are unremarkable except as noted in Subjective Physical Exam Physical Exam: General- WD/WN M in NAD Eyes- anicteric Neck- no JVD Lungs- clear breath sounds bilaterally, no rales/wheezes Heart- normal rate, regular rhythm; no murmurs Abdomen- normal bowel sounds, nondistended, soft, no tenderness Parada catheter in place: Yellow urine Extremities- no pretibial edema, moves extremities Neuro- alert, oriented x 3; speech fluent, no facial symmetry, answers appropriately, moves extremities Skin- warm & dry Results & Data Results & Data Vital Signs (Past 12 Hours) Vital Signs Temp Pulse Pulse Resp BP BP Pulse Ox 03/29/23 08:10 36.7 C 96 H 16 115/63 97 03/29/23 07:47 71 03/29/23 06:00 75 17 98 03/29/23 04:00 76 15 97 03/29/23 04:00 36.7 C 115/60 03/29/23 02:00 73 21 97 03/29/23 00:01 99/55 L 03/29/23 00:01 80 24 98 03/29/23 00:00 74 18 96 O2 Del Method 03/29/23 08:10 Room Air 03/29/23 07:47 03/29/23 06:00 03/29/23 04:00 03/29/23 04:00 03/29/23 02:00 03/29/23 00:01 03/29/23 00:01 03/29/23 00:00 Laboratory Results 03/29/23 03/29/23 03/28/23 Range/Units 07:28 03:49 20:30 WBC 5.18 (4.8-10.8) K/ul RBC 3.11 L (4.70-6.10) M/uL Hgb 9.2 L (14.0-18.0) g/dl Hct 27.4 L (42.0-52.0) % MCV 88.1 (80.0-100.0) fL MCH 29.6 (25.0-34.0) pg MCHC 33.6 (32.0-36.0) g/dL RDW Std Deviation 48.1 H (36.4-46.3) fL RDW Coeff of Indira 14.9 H (11.5-14.5) % Plt Count 57 L (130-400) K/uL MPV 11.1 (9.4-12.4) fL Immature Gran % (Auto) 0.6 % Neut % (Auto) 75.0 % Lymph % (Auto) 17.0 % Arroyo % (Auto) 6.2 % Eos % (Auto) 1.0 % Baso % (Auto) 0.2 % Neut # (Auto) 3.89 (1.40-6.50) K/uL Lymph # (Auto) 0.88 L (1.20-3.40) K/uL Arroyo # (Auto) 0.32 (0.11-0.59) K/uL Eos # (Auto) 0.05 (0.00-0.50) K/uL Baso # (Auto) 0.01 (0.00-0.20) K/uL Immature Gran # (Auto) 0.03 (0.01-0.20) K/uL Sodium 136 (136-145) mmol/L Potassium 3.9 (3.5-5.1) mmol/L Chloride 107 (98-107) mmol/L Carbon Dioxide 23 (21-32) mmol/L Anion Gap 6 (3-11) BUN 30 H (6-23) mg/dl Creatinine 1.43 H D (0.6-1.4) mg/dl Est Cr Clr Drug Dosing 47.9 ml/min Est GFR ( Amer) 53.2 ml/min Est GFR (Non-Af Amer) 45.9 ml/min BUN/Creatinine Ratio 21.0 H (10-20) Glucose 120 H (70-99(Fasting)) mg/dl POC Glucose 133 H 132 H (70-99) mg/dl Calcium 8.1 L (8.6-10.3) mg/dl Phosphorus 2.1 L (2.5-4.9) mg/dl Magnesium 2.1 (1.7-2.4) mg/dl Total Bilirubin 1.0 D (0.2-1.0) mg/dl AST 38 (13-39) U/L ALT 48 (7-52) U/L Alkaline Phosphatase 70 (34-104) U/L Total Protein 5.7 L (6.0-8.3) gm/dl Albumin 2.9 L (3.4-5.0) gm/dl Globulin 2.8 (2.5-4.0) gm/dl Albumin/Globulin Ratio 1.0 (0.9-2) 03/28/23 03/28/23 Range/Units 16:17 11:25 WBC (4.8-10.8) K/ul RBC (4.70-6.10) M/uL Hgb (14.0-18.0) g/dl Hct (42.0-52.0) % MCV (80.0-100.0) fL MCH (25.0-34.0) pg MCHC (32.0-36.0) g/dL RDW Std Deviation (36.4-46.3) fL RDW Coeff of Indira (11.5-14.5) % Plt Count (130-400) K/uL MPV (9.4-12.4) fL Immature Gran % (Auto) % Neut % (Auto) % Lymph % (Auto) % Arroyo % (Auto) % Eos % (Auto) % Baso % (Auto) % Neut # (Auto) (1.40-6.50) K/uL Lymph # (Auto) (1.20-3.40) K/uL Arroyo # (Auto) (0.11-0.59) K/uL Eos # (Auto) (0.00-0.50) K/uL Baso # (Auto) (0.00-0.20) K/uL Immature Gran # (Auto) (0.01-0.20) K/uL Sodium (136-145) mmol/L Potassium (3.5-5.1) mmol/L Chloride (98-107) mmol/L Carbon Dioxide (21-32) mmol/L Anion Gap (3-11) BUN (6-23) mg/dl Creatinine (0.6-1.4) mg/dl Est Cr Clr Drug Dosing ml/min Est GFR ( Amer) ml/min Est GFR (Non-Af Amer) ml/min BUN/Creatinine Ratio (10-20) Glucose (70-99(Fasting)) mg/dl POC Glucose 156 H 201 H (70-99) mg/dl Calcium (8.6-10.3) mg/dl Phosphorus (2.5-4.9) mg/dl Magnesium (1.7-2.4) mg/dl Total Bilirubin (0.2-1.0) mg/dl AST (13-39) U/L ALT (7-52) U/L Alkaline Phosphatase (34-104) U/L Total Protein (6.0-8.3) gm/dl Albumin (3.4-5.0) gm/dl Globulin (2.5-4.0) gm/dl Albumin/Globulin Ratio (0.9-2) Medications Administered Current Inpatient Medications Acetaminophen (Acetaminophen 325 Mg Tab) 650 mg PO QID PRN PRN Reason: pain/fever Stop: 04/26/23 22:56 Dextrose (Dextrose 50% 50 Ml Syringe) 25 - 50 ml IV UD PRN; Protocol PRN Reason: Hypoglycemia Protocol Stop: 04/26/23 22:56 Docusate Sodium (Docusate Sodium 100 Mg Cap) 100 mg PO BID [facility] Stop: 04/27/23 08:59 Last Admin: 03/29/23 07:44 Dose: 100 mg Ferrous Sulfate (Ferrous Sulfate 325 Mg Tab) 325 mg PO DAILY BRITTANI Stop: 04/27/23 08:59 Last Admin: 03/29/23 07:42 Dose: 325 mg Finasteride (Finasteride 5 Mg Tab) 5 mg PO DAILY BRITTANI Stop: 04/27/23 08:59 Last Admin: 03/29/23 07:42 Dose: 5 mg Gabapentin (Gabapentin 300 Mg Cap) 300 mg PO BIDM [facility] Stop: 04/27/23 07:59 Last Admin: 03/29/23 07:42 Dose: 300 mg Glucagon (Glucagon For Inj 1 Mg Vial) 1 mg SQ UD PRN; Protocol PRN Reason: Hypoglycemia Protocol Stop: 04/26/23 22:56 Glucose (Glucose 10 Tab/Tube) 4 - 8 tab PO UD PRN; Protocol PRN Reason: Hypoglycemia Treatment Stop: 04/26/23 22:56 Glucose (Glucose 40% Gel 15 Gm Tube) 15 - 30 gm PO UD PRN; Protocol PRN Reason: Hypoglycemia Protocol Stop: 04/26/23 22:56 Promethazine HCl 6.25 mg/ (Sodium Chloride) 50.25 mls @ 201 mls/hr IV Q6H PRN PRN Reason: Nausea And Vomiting Stop: 04/26/23 22:56 Cefepime HCl 2,000 mg/ Syringe 20 mls @ 5 mls/min IV Q12H [facility] Stop: 04/11/23 09:59 Last Admin: 03/29/23 10:04 Dose: 5 mls/min Insulin Aspart (Insulin Aspart Per Unit Charge) 0 units SC ACHS [facility] Stop: 04/27/23 07:44 Last Admin: 03/29/23 07:42 Dose: 3 units Miscellaneous (Carbohydrates For Hypoglycemia ) 15 - 30 gm PO UD PRN PRN Reason: Hypoglycemia Protocol Stop: 04/26/23 22:56 Pantoprazole Sodium (Pantoprazole 40 Mg Tab) 40 mg PO HS BRITTANI Stop: 04/27/23 20:59 Last Admin: 03/28/23 20:34 Dose: 40 mg Polyethylene Glycol (Polyethylene (Miralax) 17 Gm Pack) 17 gm PO DAILY PRN PRN Reason: Constipation Stop: 04/26/23 22:56 Sennosides (Senna 8.6 Mg Tab) 17.2 mg PO HS BRITTANI Stop: 04/27/23 20:59 Last Admin: 03/28/23 20:34 Dose: 17.2 mg
--- NOTE | 2023-03-29 13:07 | Electrocardiogram Report ---
Test Reason : Blood Pressure : / mmHG Vent. Rate : 089 BPM Atrial Rate : 089 BPM P-R Int : 184 ms QRS Dur : 096 ms QT Int : 352 ms P-R-T Axes : 079 -47 067 degrees QTc Int : 428 ms Sinus rhythm Left axis deviation Low voltage QRS Abnormal ECG When compared with ECG of 27-MAR-2023 19:11, No significant change Confirmed by Clifton Enrique ([id number]) on 03/29/2023 1:06:50 PM Referred By: REFERRED SELF Confirmed By:Clifton Enrique
--- NOTE | 2023-03-29 19:29 | Infectious Disease Consult ---
Date of Service March 29, 2023 Telehealth Information I performed this visit using a real-time telehealth connection between my location and the patients location ([facility]). After connecting through interactive tele-video, patient was identified by name and date of and/or wristband check.Patient (or authorized healthcare software sales representative) was informed that this was a telemedicine visit and it was being conducted confidentially over secure lines. My office door was closed and no one else was present in the room with me.Patient (or authorized healthcare software sales representative) provided consent to proceed with the visit, expressed an understanding of privacy and security of the telemedicine visit, and gave permission to have a hospital software sales representative in the room in order to assist with the visit and to conduct portions of the visit, as needed. I informed the patient (or authorized healthcare software sales representative) that I reviewed their record and presented the opportunity for them to ask any questions regarding the visit today. The patient agreed to participate. Assessment & Plan (1) Septic shock: (2) Catheter-associated urinary tract infection: (3) E coli bacteremia: (4) BPH (benign prostatic hyperplasia): (5) Indwelling Guerrero catheter present: Plan - I agree with IV cefepime pending the susceptibilities of the E. coli in the blood. Though, I believe it will have the same susceptibilities as the one in the urine. - I would recommend de-escalating to IV ceftriaxone 2 g daily if the susceptibilities came back similar to the urine pathogen. - Continue on IV antibiotics for total of 4 days and then, based on susceptibilities, we can stepdown to an oral option to complete a course of 14 days (both Bactrim and Cipro are potential options). History of Present Illness History of Present Illness Mr. Pedraza is a 82-year-old man with medical history of heart failure with preserved ejection fraction, CAD, HTN, hyperlipidemia, type 2 diabetes and BPH with chronic indwelling Guerrero catheter was admitted to [facility] from his rehab facility because of altered mental status, weakness and inability to ambulate. Apparently, the patient sustained a left hip fracture in January 2023 and underwent ORIF at [facility]. Then, he was discharged to a rehab facility for 2 weeks. He had an indwelling Guerrero catheter which has been since January 2023 because of BPH. On the day of presentation, he was at the urology office for an outpatient cystoscopy and was found to have significant clots and mobile debris with diffuse inflammation of the bladder. Therefore, the Guerrero catheter was replaced and the bladder was irrigated and patient then transferred to the emergency department for further management. On presentation, he was found to be hypotensive with systolic blood pressure in the 80s and required Levophed in addition to multiple fluid boluses. He also had a fever of 38.2 on presentation. On presentation, blood cultures sent on admission as well as urine culture grew E. coli. ID team was consulted for further recommendations and to help guide antibiotic treatment. Allergies Allergy/AdvReac Type Severity Reaction Status Date / Time atorvastatin Allergy Intermediate muscle Verified 03/28/22 14:59 cramps pregabalin Allergy Intermediate constipatio Verified 03/28/22 14:59 n simvastatin Allergy Intermediate muscle Verified 03/28/22 14:59 cramps Home Medications Medication Instructions Recorded Confirmed Type losartan 100 mg tablet 100 mg PO DAILY 11/30/18 03/27/23 History metformin 1,000 mg tablet 1,000 mg PO QDB 11/30/18 03/27/23 History nitroglycerin 0.4 mg sublingual 0.4 mg sublingual UD PRN Chest Pain 11/30/18 03/27/23 History tablet tamsulosin 0.4 mg capsule 0.4 mg PO DAILY 11/30/18 03/27/23 History atenolol 50 mg tablet 50 mg PO Q12 05/22/19 03/27/23 History finasteride 5 mg tablet 5 mg PO DAILY 03/28/22 03/27/23 History amitriptyline 50 mg tablet 50 mg PO HS 03/27/23 03/27/23 History aspirin 81 mg tablet,delayed 81 mg PO DAILY 03/27/23 03/27/23 History release clopidogrel 75 mg tablet 75 mg PO DAILY 03/27/23 03/27/23 History docusate sodium 100 mg capsule 100 mg PO BID 03/27/23 03/27/23 History evolocumab 420 mg/3.5 mL 420 mg subcut MONTHLY 03/27/23 03/27/23 History subcutaneous wearable injector (Repatha Pushtronex) ferrous sulfate 325 mg (65 mg 325 mg PO DAILY 03/27/23 03/27/23 History iron) tablet gabapentin 300 mg capsule 300 mg PO BIDM 03/27/23 03/27/23 History gabapentin 300 mg capsule 600 mg PO HS 03/27/23 03/27/23 History hydroxyzine pamoate 50 mg capsule 50 mg PO QID PRN Anxiety 03/27/23 03/27/23 History naloxone 4 mg/actuation nasal spray 1 spray intranasal UD PRN Opioid 03/27/23 03/27/23 History Overdose ondansetron HCl 4 mg tablet 4 mg PO Q4 PRN nausea/vomiting 03/27/23 03/27/23 History oxycodone 5 mg tablet 5 mg PO QID PRN pain scale 7-10 03/27/23 03/27/23 History oxymetazoline 0.05 % nasal mist 2 spray intranasal BID PRN Nasal 03/27/23 03/27/23 History (Afrin (oxymetazoline)) Congestion pantoprazole 40 mg tablet,delayed 40 mg PO HS 03/27/23 03/27/23 History release polyethylene glycol 3350 17 17 g PO DAILY PRN Constipation 03/27/23 03/27/23 History gram/dose oral powder (Miralax) sennosides 8.6 mg tablet (senna) 17.2 mg PO HS 03/27/23 03/27/23 History sennosides 8.6 mg-docusate sodium 1 tab-cap PO .WITH LUNCH PRN 03/27/23 03/27/23 History 50 mg tablet (Senna Plus) Constipation sodium chloride 0.65 % nasal spray 1 spray intranasal .EVERY 3 HOURS 03/27/23 03/27/23 History aerosol (Saline Mist) W/A Patient History Medical History (Updated 03/29/23 @ 19:32 by Sandip Pan MD) Diabetic peripheral neuropathy associated with type 2 diabetes mellitus Dyslipidemia Essential hypertension Gait disturbance Other specified myopathies Proximal leg weakness Type 2 diabetes mellitus Social History Smoking Status: Unknown if ever smoked Second Hand Exposure: No; Do You Dip or Chew Tobacco: No; Hx Alcohol Use: No Hx Substance Use: No Preferred Language: Turkish Communication Ability: Effective Engine Pilot Required: No Beliefs That Will Affect Care: None Current Living Situation: [facility] Current Living Situation Comment: [place] current occupation: owns [employer] Other Information That Helps Us Care for You: No Feels Safe at Home: Yes Safety Concerns: Feels Safe At This Time Assistive Devices: None Review of Systems Constitutional: Fatigue, but no fever or chills HEENT: no sore throat, no nasal discharge Cardiovascular: no chest pain, or palpitations Respiratory: no shortness of breath, no cough Gastrointestinal: NO nausea, vomiting, diarrhea or abdominal pain : Guerrero catheter in place Musculoskeletal/Skin: No muscle aches or rash Neurologic: no dizziness or headache Physical Exam Couldn't be performedrawa as the visit was conducted via telemed. Results & Data Vital Signs (Past 12 Hours) Vital Signs Temp Pulse Pulse Resp BP Pulse Ox O2 Del Method 03/29/23 16:19 36.4 C L 86 18 141/59 H 95 Room Air 03/29/23 15:49 87 03/29/23 11:26 36.4 C L 95 H 20 135/82 98 Room Air 03/29/23 08:10 36.7 C 96 H 16 115/63 97 Room Air 03/29/23 07:47 71 Diagnostic Findings Microbiology: 03/27: 4 out of 4 bottles of blood culture positive for gram-negative bacilli (identified as E. coli via [employer]) 03/27: Urine culture growing E. coli 03/29: 2 sets of blood culture pending CT scan abdomen and pelvis on 03/27: No acute findings
[2023-03-29] MEDS: MELATONIN 3 MG TAB PO PRN (20:44)
[2023-03-29] MEDS: PANTOprazole 40 MG TAB PO SCH (20:44)
[2023-03-29] MEDS: SENNA 8.6 MG TAB PO SCH (20:44)
[2023-03-30 06:44] LABS: Basophils # (auto) 0.01 K/uL (0.00-0.20); Basophils % (auto) 0.2 %; Eosinophils # (auto) 0.05 K/uL (0.00-0.50); Eosinophils % (auto) 1.1 %; Hematocrit (blood only) 25.7 % (42.0-52.0); Hemoglobin 8.7 g/dl (14.0-18.0); Immature Granulocytes # (auto) 0.02 K/uL (0.01-0.20); Immature Granulocytes % (auto) 0.4 %; Lymphocytes % (auto) 23.7 %; Mean Corpuscular Hemoglobin 29.4 pg (25.0-34.0); Mean Corpuscular Hgb Conc 33.9 g/dL (32.0-36.0); Mean Corpuscular Volume 86.8 fL (80.0-100.0); Mean Platelet Volume 11.2 fL (9.4-12.4); Monocytes # (auto) 0.44 K/uL (0.11-0.59); Monocytes % (auto) 9.5 %; Neutrophils # (auto) 3.03 K/uL (1.40-6.50); Neutrophils % (auto) 65.1 %; Platelet Count 70 K/uL (130-400); RDW Coefficient of Variation 14.6 % (11.5-14.5); RDW Standard Deviation 46.8 fL (36.4-46.3); Red Blood Count 2.96 M/uL (4.70-6.10); White Blood Count 4.65 K/ul (4.8-10.8)
[2023-03-30 06:55] LABS: Albumin Globulin Ratio 1.1 (0.9-2); Albumin Level 2.9 gm/dl (3.4-5.0); Bilirubin,Total 0.8 mg/dl (0.2-1.0); Calcium 8.2 mg/dl (8.6-10.3); Creatinine Clr Calc Pharmacy 67.8 ml/min; Est GFR (Non-African American) 70.8 ml/min; Globulin 2.6 gm/dl (2.5-4.0); Magnesium 1.6 mg/dl (1.7-2.4); Phosphorus 2.7 mg/dl (2.5-4.9); Potassium 3.9 mmol/L (3.5-5.1); Total Protein 5.5 gm/dl (6.0-8.3)
[2023-03-30] MEDS: DOCUSATE SODIUM 100 MG CAP PO SCH ×2 (07:44→20:25)
[2023-03-30] MEDS: FINASTERIDE 5 MG TAB PO SCH (07:44)
[2023-03-30] MEDS: GABAPENTIN 300 MG CAP PO SCH ×3 (07:44→18:52)
[2023-03-30] MEDS: FERROUS SULFATE 325 MG TAB PO SCH (07:45)
[2023-03-30] MEDS: INSULIN ASPART PER UNIT CHARGE SC SCH ×4 (08:25→20:25)
--- NOTE | 2023-03-30 09:24 | Hospitalist Progress Note ---
Date of Service March 30, 2023 Assessment & Plan (1) Septic shock: Plan: SEPTIC SHOCK SIRS PLUS HYPOTENSION PLUS ARF PLUS LACTIC ACIDOSIS PLUS ENCEPHALOPATHY PLUS THROMBOCYTOPENIA SECONDARY TO COMPLICATED UTI, BACTEREMIA HX BPH WITH CHRONIC INDWELLING PARADA CATHETER SINCE LEFT HIP FRACTURE SURGERY LAST 01/2023 RECENT INSTRUMENTATION Urine culture March 17: E. coli, Klebsiella Blood cultures: E.coli (pansensitive) Urine culture: E.coli (pansensitive) Repeat blood cultures pending Continued IV cefepime -> switch to 2g ceftriaxone daily Follow-up cultures Parada catheter exchanged prior to admission during cystoscopy ID consulted, abx switched to ceftriaxone, as above JESÚS - resolved Cr on admission 3.5 - received IVF, abx for treatment of infection Cr now down to 1 THROMBOCYTOPENIA Likely secondary to sepsis Monitor CBC BUTTOCK WOUNDS Photos reviewed Wound care consulted CHRONIC DIASTOLIC HEART FAILURE (EF 55 to 59%, TTE 2018) -patient on the dry side Has received fluid boluses -Encourage oral fluid intake HX CAD STATUS POST STENT -No cardiac symptoms hyperlipidemia/statin intolerance JASPAL status post surgery DM2 on oral medications, well-controlled as of recent hemoglobin A1c of 6.3 last September 2022 chronic anemia, stable hemoglobin, postop hemoglobin 9-10 from review of records past tobacco abuse Appropriate to hold home BP meds for now given hypotension Appropriate to hold/ decrease dose of home narcotics and neuropsychotropic medications until patient mentation back to baseline. Appropriate to hold home antiplatelet Rx given hematuria and new onset thrombocytopenia Pt improving, resuming home meds as appropriate, will restart asa and cont. to monitor DVT prophylaxis. SCDs Re: Hematuria/thrombocytopenia Full code Disposition Lives at home PT and OT evaluation Admission and Anticipated Discharge Date Admission Date: March 27, 2023 Subjective Follow-up for septic shock, UTI secondary to Parada catheter, etc. Found to be bacteremic, urine cultx positive Feeling well, in NAD No fevers or chills, chest pain, shortness of breath, abdominal pain, back pain Cr now down to 1 Pt is afebrile ID consulted - switched to ceftriaxone Review of Systems Review of Systems: All systems reviewed & are unremarkable except as noted in Subjective Physical Exam Physical Exam: General- WD/WN M in NAD Eyes- anicteric Neck- no JVD Lungs- clear breath sounds bilaterally, no rales/wheezes Heart- normal rate, regular rhythm; no murmurs Abdomen- normal bowel sounds, nondistended, soft, no tenderness Parada catheter in place: Yellow urine Extremities- no pretibial edema, moves extremities Neuro- alert, oriented x 3; speech fluent, no facial symmetry, answers appropriately, moves extremities Skin- warm & dry Results & Data Results & Data Vital Signs (Past 12 Hours) Vital Signs Temp Pulse Pulse Resp BP Pulse Ox O2 Del Method 03/30/23 07:42 36.6 C 87 17 142/73 H 96 Room Air 03/30/23 05:11 77 03/30/23 03:02 36.6 C 77 17 120/66 96 Room Air 03/30/23 01:00 36.9 C 93 H 17 152/73 H 98 Room Air 03/29/23 22:32 96 H Laboratory Results 03/30/23 03/30/23 03/29/23 Range/Units 08:03 05:30 20:37 WBC 4.65 L (4.8-10.8) K/ul RBC 2.96 L (4.70-6.10) M/uL Hgb 8.7 L (14.0-18.0) g/dl Hct 25.7 L (42.0-52.0) % MCV 86.8 (80.0-100.0) fL MCH 29.4 (25.0-34.0) pg MCHC 33.9 (32.0-36.0) g/dL RDW Std Deviation 46.8 H (36.4-46.3) fL RDW Coeff of Indira 14.6 H (11.5-14.5) % Plt Count 70 L (130-400) K/uL MPV 11.2 (9.4-12.4) fL Immature Gran % (Auto) 0.4 % Neut % (Auto) 65.1 % Lymph % (Auto) 23.7 % [place] % (Auto) 9.5 % Eos % (Auto) 1.1 % Baso % (Auto) 0.2 % Neut # (Auto) 3.03 (1.40-6.50) K/uL Lymph # (Auto) 1.10 L (1.20-3.40) K/uL [place] # (Auto) 0.44 (0.11-0.59) K/uL Eos # (Auto) 0.05 (0.00-0.50) K/uL Baso # (Auto) 0.01 (0.00-0.20) K/uL Immature Gran # (Auto) 0.02 (0.01-0.20) K/uL Sodium 139 (136-145) mmol/L Potassium 3.9 (3.5-5.1) mmol/L Chloride 108 H (98-107) mmol/L Carbon Dioxide 26 (21-32) mmol/L Anion Gap 5 (3-11) BUN 21 (6-23) mg/dl Creatinine 1.00 D (0.6-1.4) mg/dl Est Cr Clr Drug Dosing 67.8 ml/min Est GFR ( Amer) 82.0 ml/min Est GFR (Non-Af Amer) 70.8 ml/min BUN/Creatinine Ratio 21.0 H (10-20) Glucose 127 H (70-99(Fasting)) mg/dl POC Glucose 138 H 168 H (70-99) mg/dl Calcium 8.2 L (8.6-10.3) mg/dl Phosphorus 2.7 (2.5-4.9) mg/dl Magnesium 1.6 L (1.7-2.4) mg/dl Total Bilirubin 0.8 (0.2-1.0) mg/dl AST 32 (13-39) U/L ALT 55 H (7-52) U/L Alkaline Phosphatase 82 (34-104) U/L Total Protein 5.5 L (6.0-8.3) gm/dl Albumin 2.9 L (3.4-5.0) gm/dl Globulin 2.6 (2.5-4.0) gm/dl Albumin/Globulin Ratio 1.1 (0.9-2) 03/29/23 03/29/23 Range/Units 16:24 11:10 WBC (4.8-10.8) K/ul RBC (4.70-6.10) M/uL Hgb (14.0-18.0) g/dl Hct (42.0-52.0) % MCV (80.0-100.0) fL MCH (25.0-34.0) pg MCHC (32.0-36.0) g/dL RDW Std Deviation (36.4-46.3) fL RDW Coeff of Indira (11.5-14.5) % Plt Count (130-400) K/uL MPV (9.4-12.4) fL Immature Gran % (Auto) % Neut % (Auto) % Lymph % (Auto) % [place] % (Auto) % Eos % (Auto) % Baso % (Auto) % Neut # (Auto) (1.40-6.50) K/uL Lymph # (Auto) (1.20-3.40) K/uL [place] # (Auto) (0.11-0.59) K/uL Eos # (Auto) (0.00-0.50) K/uL Baso # (Auto) (0.00-0.20) K/uL Immature Gran # (Auto) (0.01-0.20) K/uL Sodium (136-145) mmol/L Potassium (3.5-5.1) mmol/L Chloride (98-107) mmol/L Carbon Dioxide (21-32) mmol/L Anion Gap (3-11) BUN (6-23) mg/dl Creatinine (0.6-1.4) mg/dl Est Cr Clr Drug Dosing ml/min Est GFR ( Amer) ml/min Est GFR (Non-Af Amer) ml/min BUN/Creatinine Ratio (10-20) Glucose (70-99(Fasting)) mg/dl POC Glucose 125 H 210 H (70-99) mg/dl Calcium (8.6-10.3) mg/dl Phosphorus (2.5-4.9) mg/dl Magnesium (1.7-2.4) mg/dl Total Bilirubin (0.2-1.0) mg/dl AST (13-39) U/L ALT (7-52) U/L Alkaline Phosphatase (34-104) U/L Total Protein (6.0-8.3) gm/dl Albumin (3.4-5.0) gm/dl Globulin (2.5-4.0) gm/dl Albumin/Globulin Ratio (0.9-2) Medications Administered Current Inpatient Medications Acetaminophen (Acetaminophen 325 Mg Tab) 650 mg PO QID PRN PRN Reason: pain/fever Stop: 04/26/23 22:56 Last Admin: 03/29/23 14:26 Dose: 650 mg Dextrose (Dextrose 50% 50 Ml Syringe) 25 - 50 ml IV UD PRN; Protocol PRN Reason: Hypoglycemia Protocol Stop: 04/26/23 22:56 Docusate Sodium (Docusate Sodium 100 Mg Cap) 100 mg PO BID [facility] Stop: 04/27/23 08:59 Last Admin: 03/30/23 07:44 Dose: 100 mg Ferrous Sulfate (Ferrous Sulfate 325 Mg Tab) 325 mg PO DAILY [facility] Stop: 04/27/23 08:59 Last Admin: 03/30/23 07:45 Dose: 325 mg Finasteride (Finasteride 5 Mg Tab) 5 mg PO DAILY [facility] Stop: 04/27/23 08:59 Last Admin: 03/30/23 07:44 Dose: 5 mg Gabapentin (Gabapentin 300 Mg Cap) 300 mg PO BIDM [facility] Stop: 04/27/23 07:59 Last Admin: 03/30/23 07:44 Dose: 300 mg Glucagon (Glucagon For Inj 1 Mg Vial) 1 mg SQ UD PRN; Protocol PRN Reason: Hypoglycemia Protocol Stop: 04/26/23 22:56 Glucose (Glucose 10 Tab/Tube) 4 - 8 tab PO UD PRN; Protocol PRN Reason: Hypoglycemia Treatment Stop: 04/26/23 22:56 Glucose (Glucose 40% Gel 15 Gm Tube) 15 - 30 gm PO UD PRN; Protocol PRN Reason: Hypoglycemia Protocol Stop: 04/26/23 22:56 Promethazine HCl 6.25 mg/ (Sodium Chloride) 50.25 mls @ 201 mls/hr IV Q6H PRN PRN Reason: Nausea And Vomiting Stop: 04/26/23 22:56 Cefepime HCl 2,000 mg/ Syringe 20 mls @ 5 mls/min IV Q12H [facility] Stop: 04/11/23 09:59 Last Admin: 03/29/23 21:02 Dose: 5 mls/min Ceftriaxone Sodium 2,000 mg/ (Dextrose) 50 mls @ 100 mls/hr IV Q24H [facility]; Protocol Stop: 04/13/23 09:14 Insulin Aspart (Insulin Aspart Per Unit Charge) 0 units SC ACHS [facility] Stop: 04/27/23 07:44 Last Admin: 03/30/23 08:25 Dose: 5 units Melatonin (Melatonin 3 Mg Tab) 3 mg PO HS PRN PRN Reason: Sleep Stop: 04/28/23 18:09 Last Admin: 03/29/23 20:44 Dose: 3 mg Miscellaneous (Carbohydrates For Hypoglycemia ) 15 - 30 gm PO UD PRN PRN Reason: Hypoglycemia Protocol Stop: 04/26/23 22:56 Pantoprazole Sodium (Pantoprazole 40 Mg Tab) 40 mg PO HS [facility] Stop: 04/27/23 20:59 Last Admin: 03/29/23 20:44 Dose: 40 mg Polyethylene Glycol (Polyethylene (Miralax) 17 Gm Pack) 17 gm PO DAILY PRN PRN Reason: Constipation Stop: 04/26/23 22:56 Sennosides (Senna 8.6 Mg Tab) 17.2 mg PO HS [facility] Stop: 04/27/23 20:59 Last Admin: 03/29/23 20:44 Dose: 17.2 mg
[2023-03-30] MEDS: cefTRIAXone SODIUM 2,000 MG in DEXTROSE 5 % MINI-B 50 ML IV SCH (11:24)
[2023-03-30] MEDS: ASPIRIN 81 MG ECTAB PO SCH (13:59)
[2023-03-30] MEDS: PANTOprazole 40 MG TAB PO SCH (20:24)
[2023-03-30] MEDS: MELATONIN 3 MG TAB PO PRN (20:24)
[2023-03-30] MEDS: SENNA 8.6 MG TAB PO SCH (20:38)
[2023-03-31 04:57] LABS: Hematocrit (blood only) 28.8 % (42.0-52.0); Hemoglobin 9.8 g/dl (14.0-18.0); Mean Corpuscular Hemoglobin 29.7 pg (25.0-34.0); Mean Corpuscular Volume 87.3 fL (80.0-100.0); Mean Platelet Volume 10.7 fL (9.4-12.4); Platelet Count 77 K/uL (130-400); RDW Coefficient of Variation 14.5 % (11.5-14.5); RDW Standard Deviation 46.4 fL (36.4-46.3); White Blood Count 5.67 K/ul (4.8-10.8)
[2023-03-31 05:09] LABS: BUN Creatinine Ratio 15.2 (10-20); Calcium 8.5 mg/dl (8.6-10.3); Creatinine Clr Calc Pharmacy 85.8 ml/min; Est GFR (African American) 98.3 ml/min; Est GFR (Non-African American) 84.8 ml/min; Magnesium 1.4 mg/dl (1.7-2.4); Phosphorus 3.2 mg/dl (2.5-4.9); Potassium 3.4 mmol/L (3.5-5.1)
--- NOTE | 2023-03-31 06:49 | Electrocardiogram Report ---
Test Reason : Blood Pressure : / mmHG Vent. Rate : 066 BPM Atrial Rate : 066 BPM P-R Int : 198 ms QRS Dur : 102 ms QT Int : 424 ms P-R-T Axes : 066 -28 070 degrees QTc Int : 445 ms Sinus rhythm with Premature atrial complexes Low voltage QRS Abnormal ECG When compared with ECG of 27-MAR-2023 23:59, Premature atrial complexes are now Present Confirmed by Clifton Enrique ([id number]) on 03/31/2023 6:48:42 AM Referred By: REFERRED SELF Confirmed By:Clifton Enrique
[2023-03-31] MEDS: INSULIN ASPART PER UNIT CHARGE SC SCH ×4 (08:26→20:24)
[2023-03-31] MEDS: GABAPENTIN 300 MG CAP PO SCH ×2 (08:32→17:47)
[2023-03-31] MEDS: ASPIRIN 81 MG ECTAB PO SCH (08:32)
[2023-03-31] MEDS: FINASTERIDE 5 MG TAB PO SCH (08:32)
[2023-03-31] MEDS ORDERED: POTASSIUM CHLORIDE CRTAB 20 MEQ TABCR PO STA (08:50)
[2023-03-31] MEDS ORDERED: MAGNESIUM SULFATE / D5W 1 GM/100 ML BAG IV ONE (09:15)
[2023-03-31] MEDS: cefTRIAXone SODIUM 2,000 MG in DEXTROSE 5 % MINI-B 50 ML IV SCH (09:37)
[2023-03-31] MEDS: MAGNESIUM OXIDE 400 MG TAB PO SCH ×2 (10:40→20:24)
[2023-03-31] MEDS: FERROUS SULFATE 325 MG TAB PO SCH (10:42)
[2023-03-31] MEDS: DOCUSATE SODIUM 100 MG CAP PO SCH ×2 (10:42→20:27)
--- NOTE | 2023-03-31 11:20 | Hospitalist Progress Note ---
Date of Service March 31, 2023 Assessment & Plan (1) Septic shock: Plan: SEPTIC SHOCK SIRS PLUS HYPOTENSION PLUS ARF PLUS LACTIC ACIDOSIS PLUS ENCEPHALOPATHY PLUS THROMBOCYTOPENIA SECONDARY TO COMPLICATED UTI, BACTEREMIA HX BPH WITH CHRONIC INDWELLING PARADA CATHETER SINCE LEFT HIP FRACTURE SURGERY LAST 01/2023 RECENT INSTRUMENTATION Urine culture March 17: E. coli, Klebsiella Blood cultures: E.coli (pansensitive) Urine culture: E.coli (pansensitive) Repeat blood cultures pending Continued IV cefepime -> switched to 2g ceftriaxone daily Follow-up cultures Parada catheter exchanged prior to admission during cystoscopy ID consulted, abx switched to ceftriaxone, as above JESÚS - resolved Cr on admission 3.5 - received IVF, abx for treatment of infection Cr now down to 0.8 THROMBOCYTOPENIA Likely secondary to sepsis Monitor CBC, plt improving Hypomagnesemia, Hypokalemia replete and monitor BUTTOCK WOUNDS Photos reviewed Wound care consulted CHRONIC DIASTOLIC HEART FAILURE (EF 55 to 59%, TTE 2019) -patient on the dry side Has received fluid boluses -Encourage oral fluid intake HX CAD STATUS POST STENT -No cardiac symptoms hyperlipidemia/statin intolerance JASPAL status post surgery DM2 on oral medications, well-controlled as of recent hemoglobin A1c of 6.3 last September 2022 chronic anemia, stable hemoglobin, postop hemoglobin 9-10 from review of records past tobacco abuse Appropriate to hold home BP meds for now given hypotension Appropriate to hold/ decrease dose of home narcotics and neuropsychotropic medications until patient mentation back to baseline. Appropriate to hold home antiplatelet Rx given hematuria and new onset thrombocytopenia Pt improving, resuming home meds as appropriate, restarted asa and plavix and cont. to monitor DVT prophylaxis. SCDs Re: Hematuria/thrombocytopenia Full code Disposition Lives at home PT and OT evaluation Admission and Anticipated Discharge Date Admission Date: March 27, 2023 Subjective Follow-up for septic shock, UTI secondary to Parada catheter, etc. Found to be bacteremic, urine cultx positive Feeling well, in NAD No fevers or chills, chest pain, shortness of breath, abdominal pain, back pain Cr now down back to baseline Pt is afebrile Review of Systems Review of Systems: All systems reviewed & are unremarkable except as noted in Subjective Physical Exam Physical Exam: General- WD/WN M in NAD Eyes- anicteric Neck- no JVD Lungs- clear breath sounds bilaterally, no rales/wheezes Heart- normal rate, regular rhythm; no murmurs Abdomen- normal bowel sounds, nondistended, soft, no tenderness Parada catheter in place: Yellow urine Extremities- no pretibial edema, moves extremities Neuro- alert, oriented x 3; speech fluent, no facial symmetry, answers appropriately, moves extremities Skin- warm & dry Results & Data Results & Data Vital Signs (Past 12 Hours) Vital Signs Temp Pulse Pulse Resp BP Pulse Ox O2 Del Method 03/31/23 08:19 36.4 C L 82 17 153/78 H 97 Room Air 03/31/23 08:00 74 03/31/23 02:57 36.7 C 78 20 140/82 96 Room Air Laboratory Results 03/31/23 03/31/23 03/30/23 Range/Units 07:58 04:14 20:09 WBC 5.67 (4.8-10.8) K/ul RBC 3.30 L (4.70-6.10) M/uL Hgb 9.8 L (14.0-18.0) g/dl Hct 28.8 L (42.0-52.0) % MCV 87.3 (80.0-100.0) fL MCH 29.7 (25.0-34.0) pg MCHC 34.0 (32.0-36.0) g/dL RDW Std Deviation 46.4 H (36.4-46.3) fL RDW Coeff of Indira 14.5 (11.5-14.5) % Plt Count 77 L (130-400) K/uL MPV 10.7 (9.4-12.4) fL Sodium 138 (136-145) mmol/L Potassium 3.4 L (3.5-5.1) mmol/L Chloride 106 (98-107) mmol/L Carbon Dioxide 25 (21-32) mmol/L Anion Gap 7 (3-11) BUN 12 (6-23) mg/dl Creatinine 0.79 (0.6-1.4) mg/dl Est Cr Clr Drug Dosing 85.8 ml/min Est GFR ( Amer) 98.3 ml/min Est GFR (Non-Af Amer) 84.8 ml/min BUN/Creatinine Ratio 15.2 (10-20) Glucose 130 H (70-99(Fasting)) mg/dl POC Glucose 142 H 201 H (70-99) mg/dl Calcium 8.5 L (8.6-10.3) mg/dl Phosphorus 3.2 (2.5-4.9) mg/dl Magnesium 1.4 L (1.7-2.4) mg/dl 03/30/23 03/30/23 Range/Units 16:58 12:04 WBC (4.8-10.8) K/ul RBC (4.70-6.10) M/uL Hgb (14.0-18.0) g/dl Hct (42.0-52.0) % MCV (80.0-100.0) fL MCH (25.0-34.0) pg MCHC (32.0-36.0) g/dL RDW Std Deviation (36.4-46.3) fL RDW Coeff of Indira (11.5-14.5) % Plt Count (130-400) K/uL MPV (9.4-12.4) fL Sodium (136-145) mmol/L Potassium (3.5-5.1) mmol/L Chloride (98-107) mmol/L Carbon Dioxide (21-32) mmol/L Anion Gap (3-11) BUN (6-23) mg/dl Creatinine (0.6-1.4) mg/dl Est Cr Clr Drug Dosing ml/min Est GFR ( Amer) ml/min Est GFR (Non-Af Amer) ml/min BUN/Creatinine Ratio (10-20) Glucose (70-99(Fasting)) mg/dl POC Glucose 131 H 168 H (70-99) mg/dl Calcium (8.6-10.3) mg/dl Phosphorus (2.5-4.9) mg/dl Magnesium (1.7-2.4) mg/dl Medications Administered Current Inpatient Medications Acetaminophen (Acetaminophen 325 Mg Tab) 650 mg PO QID PRN PRN Reason: pain/fever Stop: 04/26/23 22:56 Last Admin: 03/29/23 14:26 Dose: 650 mg Aspirin (Aspirin 81 Mg Ectab) 81 mg PO DAILY [facility] Stop: 04/29/23 12:14 Last Admin: 03/31/23 08:32 Dose: 81 mg Dextrose (Dextrose 50% 50 Ml Syringe) 25 - 50 ml IV UD PRN; Protocol PRN Reason: Hypoglycemia Protocol Stop: 04/26/23 22:56 Docusate Sodium (Docusate Sodium 100 Mg Cap) 100 mg PO BID [facility] Stop: 04/27/23 08:59 Last Admin: 03/31/23 10:42 Dose: 100 mg Ferrous Sulfate (Ferrous Sulfate 325 Mg Tab) 325 mg PO DAILY [facility] Stop: 04/27/23 08:59 Last Admin: 03/31/23 10:42 Dose: Not Given Finasteride (Finasteride 5 Mg Tab) 5 mg PO DAILY [facility] Stop: 04/27/23 08:59 Last Admin: 03/31/23 08:32 Dose: 5 mg Gabapentin (Gabapentin 300 Mg Cap) 300 mg PO BIDM [facility] Stop: 04/27/23 07:59 Last Admin: 03/31/23 08:32 Dose: 300 mg Glucagon (Glucagon For Inj 1 Mg Vial) 1 mg SQ UD PRN; Protocol PRN Reason: Hypoglycemia Protocol Stop: 04/26/23 22:56 Glucose (Glucose 10 Tab/Tube) 4 - 8 tab PO UD PRN; Protocol PRN Reason: Hypoglycemia Treatment Stop: 04/26/23 22:56 Glucose (Glucose 40% Gel 15 Gm Tube) 15 - 30 gm PO UD PRN; Protocol PRN Reason: Hypoglycemia Protocol Stop: 04/26/23 22:56 Promethazine HCl 6.25 mg/ (Sodium Chloride) 50.25 mls @ 201 mls/hr IV Q6H PRN PRN Reason: Nausea And Vomiting Stop: 04/26/23 22:56 Ceftriaxone Sodium 2,000 mg/ (Dextrose) 50 mls @ 100 mls/hr IV Q24H [facility]; Protocol Stop: 04/13/23 09:59 Last Infusion: 03/31/23 10:10 Dose: Infused Magnesium Sulfate/Dextrose (Magnesium Sulfate / D5w) 1 gm in 100 mls @ 50 mls/hr IV ONE ONE Stop: 03/31/23 11:14 Last Admin: 03/31/23 09:42 Dose: 50 mls/hr Insulin Aspart (Insulin Aspart Per Unit Charge) 0 units SC ACHS [facility] Stop: 04/27/23 07:44 Last Admin: 03/31/23 08:26 Dose: 4 units Magnesium Oxide (Magnesium Oxide 400 Mg Tab) 400 mg PO BID [facility] Stop: 04/30/23 08:59 Last Admin: 03/31/23 10:40 Dose: 400 mg Melatonin (Melatonin 3 Mg Tab) 3 mg PO HS PRN PRN Reason: Sleep Stop: 04/28/23 18:09 Last Admin: 03/30/23 20:24 Dose: 3 mg Miscellaneous (Carbohydrates For Hypoglycemia ) 15 - 30 gm PO UD PRN PRN Reason: Hypoglycemia Protocol Stop: 04/26/23 22:56 Pantoprazole Sodium (Pantoprazole 40 Mg Tab) 40 mg PO HS [facility] Stop: 04/27/23 20:59 Last Admin: 03/30/23 20:24 Dose: 40 mg Polyethylene Glycol (Polyethylene (Miralax) 17 Gm Pack) 17 gm PO DAILY PRN PRN Reason: Constipation Stop: 04/26/23 22:56 Sennosides (Senna 8.6 Mg Tab) 17.2 mg PO HS [facility] Stop: 04/27/23 20:59 Last Admin: 03/30/23 20:38 Dose: Not Given
[2023-03-31] MEDS: CLOPIDOGREL BISULFATE 75 MG TAB PO SCH (18:13)
[2023-03-31] MEDS: PANTOprazole 40 MG TAB PO SCH (20:24)
[2023-03-31] MEDS: MELATONIN 3 MG TAB PO PRN (20:24)
[2023-03-31] MEDS: SENNA 8.6 MG TAB PO SCH (20:45)
--- NOTE | 2023-03-31 22:09 | Electrocardiogram Report ---
Test Reason : Blood Pressure : / mmHG Vent. Rate : 076 BPM Atrial Rate : 076 BPM P-R Int : 168 ms QRS Dur : 102 ms QT Int : 408 ms P-R-T Axes : 071 -05 078 degrees QTc Int : 459 ms Normal sinus rhythm Low voltage QRS Borderline ECG When compared with ECG of 28-MAR-2023 09:55, Premature atrial complexes are no longer Present Confirmed by Clifton Enrique ([id number]) on 03/31/2023 10:08:30 PM Referred By: REFERRED SELF Confirmed By:Clifton Enrique
--- NOTE | 2023-03-31 22:50 | Electrocardiogram Report ---
Test Reason : Blood Pressure : / mmHG Vent. Rate : 088 BPM Atrial Rate : 088 BPM P-R Int : 172 ms QRS Dur : 100 ms QT Int : 384 ms P-R-T Axes : 064 -32 062 degrees QTc Int : 464 ms Normal sinus rhythm Left axis deviation Abnormal ECG When compared with ECG of 29-MAR-2023 14:31, No significant change was found Confirmed by Clifton Enrique ([id number]) on 03/31/2023 10:50:17 PM Referred By: REFERRED SELF Confirmed By:Clifton Enrique
--- NOTE | 2023-04-01 06:21 | Electrocardiogram Report ---
Test Reason : Blood Pressure : / mmHG Vent. Rate : 093 BPM Atrial Rate : 093 BPM P-R Int : 174 ms QRS Dur : 100 ms QT Int : 390 ms P-R-T Axes : 094 -24 082 degrees QTc Int : 484 ms Normal sinus rhythm Low voltage QRS Prolonged QT Abnormal ECG When compared with ECG of 30-MAR-2023 05:43, T wave inversion now evident in Lateral leads Confirmed by Clifton Enrique [id number]) on 04/01/2023 6:21:47 AM Referred By: REFERRED SELF Confirmed By:Clifton Enrique
[2023-04-01 06:28] LABS: Hematocrit (blood only) 27.9 % (42.0-52.0); Hemoglobin 9.5 g/dl (14.0-18.0); Mean Corpuscular Hemoglobin 29.6 pg (25.0-34.0); Mean Corpuscular Hgb Conc 34.1 g/dL (32.0-36.0); Mean Corpuscular Volume 86.9 fL (80.0-100.0); Mean Platelet Volume 10.3 fL (9.4-12.4); Platelet Count 96 K/uL (130-400); RDW Coefficient of Variation 14.3 % (11.5-14.5); RDW Standard Deviation 45.6 fL (36.4-46.3); Red Blood Count 3.21 M/uL (4.70-6.10); White Blood Count 5.34 K/ul (4.8-10.8)
[2023-04-01 06:40] LABS: BUN Creatinine Ratio 14.1 (10-20); Calcium 8.9 mg/dl (8.6-10.3); Creatinine Clr Calc Pharmacy 88.4 ml/min; Est GFR (African American) 102.7 ml/min; Est GFR (Non-African American) 88.6 ml/min; Magnesium 1.6 mg/dl (1.7-2.4); Phosphorus 3.4 mg/dl (2.5-4.9); Potassium 3.8 mmol/L (3.5-5.1)
[2023-04-01] MEDS ORDERED: MAGNESIUM SULFATE / D5W 1 GM/100 ML BAG IV ONE (07:55)
[2023-04-01] MEDS: INSULIN ASPART PER UNIT CHARGE SC SCH ×2 (08:30→12:32)
[2023-04-01] MEDS: FINASTERIDE 5 MG TAB PO SCH (08:41)
[2023-04-01] MEDS: MAGNESIUM OXIDE 400 MG TAB PO SCH (08:41)
[2023-04-01] MEDS: ASPIRIN 81 MG ECTAB PO SCH (08:41)
[2023-04-01] MEDS: CLOPIDOGREL BISULFATE 75 MG TAB PO SCH (08:41)
[2023-04-01] MEDS: GABAPENTIN 300 MG CAP PO SCH (08:42)
[2023-04-01] MEDS: DOCUSATE SODIUM 100 MG CAP PO SCH (08:42)
[2023-04-01] MEDS: FERROUS SULFATE 325 MG TAB PO SCH (08:42)
[2023-04-01] MEDS: cefTRIAXone SODIUM 2,000 MG in DEXTROSE 5 % MINI-B 50 ML IV SCH (09:56)
[2023-04-01] MEDS ORDERED: ADVANCED PROBIOTIC 1250 MG CAPSULE PO SCH (10:45)
--- NOTE | 2023-04-01 10:46 | Discharge Summary ---
Date of Service April 01, 2023 Admission HPI Per Admitting Provider History obtained from patient, family, and records. Limited history from patient secondary to episodic confusion. Medical history significant for chronic diastolic heart failure (EF 55 to 59%, TTE 2018), CAD status post stent, HTN, hyperlipidemia/statin intolerance, JASPAL status post surgery, DM2 on oral medications, chronic anemia (baseline hemoglobin 9-10 ), BPH, past tobacco abuse. Patient sustained left hip fracture secondary to fall while visiting a family member at an assisted living facility in [place], [place] last January,. Patient transferred to [facility] for subsequent surgery. Patient later discharged to local [facility] rehab facility followed by [facility] for rehab stay. Anticipated return to home in a couple of weeks as per . Patient with Parada catheter following difficult placement following injury from few months ago. Over the weekend, patient noted to have intermittent shaking and mild confusion, weakness, inability to stand up by . Patient denies headache, chest pain, SOB, abdominal pain, dysuria symptoms. Unclear if patient family verbalized symptoms to facility provider. Patient seen at [facility] urology office today for outpatient cystoscopy. Bactrim given perioperatively. Gross hematuria noted after Parada catheter removal. Cystoscopy findings as follows: Urethra demonstrated inflammation and old blood, no clear trauma . Prostatic urethra demonstrated moderate lateral lobe prostatic obstruction, varicosities, engorgement, and active bleeding. Bladder neck was visualized and bladder was entered. Sterile saline irrigation was used to distend the bladder which was noted to have mobile debris and diffuse inflammation consistent with indwelling Parada catheter with grade 3 trabeculation. Bladder was completely inspected including retroflexion of the scope. Ureteral orifices were noted to be difficult to visualize secondary to inflammation. Subsequent Parada catheter replacement and irrigation. Urologist recommended maintaining Parada catheter with plan for void trial/Parada catheter exchange in 1 month. Patient a candidate for greenlight TURP if necessary for persistent urinary retention. Worsening weakness and confusion noted at [facility]. SBP 80s upon arrival at the ER. Multiple fluid boluses, IV Zosyn, IV hydrocortisone, and Levophed administered at the ER. SBP currently 90s. Patient mentation much better as per . Medical History as above Surgical History : Hip fracture surgery, uvulopalatopharyngoplasty tonsillectomy/adenoidectomy, vasectomy, cystoscopy Family History : Heart disease, DM, dementia Personal/Social history : Past tobacco abuse, occasional EtOH intake, businessman Admission Exam Per Admitting Provider GENERAL: Episodic lethargy, no respiratory distress SKIN: Pallor, warm HEENT: Partial alopecia, pale palpebral conjunctivae, no ptosis, dry buccal mucosa NECK : Supple, no tenderness CHEST : Decreased breath sounds, no tenderness HEART : Tachycardic, no obvious murmurs ABDOMEN: Some distention, nontender EXTREMITIES : No LE swelling/tenderness, no other conspicuous deformities noted NEUROLOGIC : Episodic lethargy, no facial asymmetry, gait and stance not assessed Principal Diagnosis Septic shock E. coli bacteremia UTI, catheter associated Hematuria JESÚS Thrombocytopenia Discharge Exam General- WD/WN M in NAD Eyes- anicteric Neck- no JVD Lungs- clear breath sounds bilaterally, no rales/wheezes Heart- normal rate, regular rhythm; no murmurs Abdomen- normal bowel sounds, nondistended, soft, no tenderness Parada catheter in place: Yellow urine Extremities- no pretibial edema, moves extremities Neuro- alert, oriented x 3; speech fluent, no facial symmetry, answers appropriately, moves extremities Skin- warm & dry Discharge Data Allergies Allergy/AdvReac Type Severity Reaction Status Date / Time atorvastatin Allergy Intermediate muscle Verified 03/28/22 14:59 cramps pregabalin Allergy Intermediate constipatio Verified 03/28/22 14:59 n simvastatin Allergy Intermediate muscle Verified 03/28/22 14:59 cramps Consultations 03/27/23 20:43 ED Decision to Admit Stat 03/27/23 22:57 Consult Manager Advanced Routine 03/28/23 17:45 Consult Infectious Diseases Routine Ordered Studies 03/27/23 19:14 CT head/brain wo con Stat FINDINGS: Brain: 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 No hemorrhage. Ventricles: Unremarkable. No ventriculomegaly. Bones/joints: Unremarkable. No acute fracture. Soft tissues: Unremarkable. Sinuses: Unremarkable as visualized. No acute sinusitis. Mastoid air cells: Unremarkable as visualized. No mastoid effusion. IMPRESSION: No acute intracranial abnormality 03/27/23 19:23 CT abd pelvis wo con Stat FINDINGS: Lung bases: Subsegmental atelectasis seen in the left lung base. ABDOMEN: Liver: Fatty liver. Gallbladder and bile ducts: Unremarkable. No calcified stones. No ductal dilation. Pancreas: Unremarkable. No ductal dilation. Spleen: Unremarkable. No splenomegaly. Adrenals: There is stable 2.1 cm left adrenal nodule with density measurement of 20 HU. Kidneys and ureters: Unremarkable. No obstructing stones. No hydronephrosis. Stomach and bowel: Unremarkable. No obstruction. No mucosal thickening. PELVIS: Appendix: No findings to suggest acute appendicitis. Bladder: Foleys catheter bulb seen in the decompressed urinary bladder lumen. No stones. Reproductive: Unremarkable as visualized. ABDOMEN and PELVIS: Intraperitoneal space: Unremarkable. No free air. No significant fluid collection. Bones/joints: There is left hip arthroplasty. No acute fracture. No dislocation. There is hemangioma seen in the T10 vertebral body. Vasculature: Unremarkable. No abdominal aortic aneurysm. Lymph nodes: Unremarkable. No enlarged lymph nodes. IMPRESSION: No acute findings in the abdomen or pelvis. Hospital Course (1) Septic shock: SEPTIC SHOCK SIRS PLUS HYPOTENSION PLUS ARF PLUS LACTIC ACIDOSIS PLUS ENCEPHALOPATHY PLUS THROMBOCYTOPENIA SECONDARY TO COMPLICATED UTI, BACTEREMIA HX BPH WITH CHRONIC INDWELLING PARADA CATHETER SINCE LEFT HIP FRACTURE SURGERY LAST 01/2023 RECENT INSTRUMENTATION Urine culture March 17: E. coli, Klebsiella Blood cultures: E.coli (pansensitive) Urine culture: E.coli (pansensitive) Repeat blood cultures pending Continued IV cefepime -> switched to 2g ceftriaxone daily - > switch to Bactrim DS on discharge to finish 14 day antibiotic course Follow-up cultures Parada catheter exchanged prior to admission during cystoscopy ID consulted, abx switched to ceftriaxone, discharge on Bactrim DS, as above to finish 14 day abx course JESÚS - resolved Cr on admission 3.5 - received IVF, abx for treatment of infection Cr now down to 0.7 THROMBOCYTOPENIA Likely secondary to sepsis Monitor CBC, plt improving, currently 96k Hypomagnesemia, Hypokalemia replete and monitor BUTTOCK WOUNDS Photos reviewed Wound care consulted CHRONIC DIASTOLIC HEART FAILURE (EF 55 to 59%, TTE 2019) -patient on the dry side Has received fluid boluses -Encourage oral fluid intake HX CAD STATUS POST STENT -No cardiac symptoms hyperlipidemia/statin intolerance JASPAL status post surgery DM2 on oral medications, well-controlled as of recent hemoglobin A1c of 6.3 last September 2022 chronic anemia, stable hemoglobin, postop hemoglobin 9-10 from review of records past tobacco abuse Appropriate to hold home BP meds for now given hypotension Appropriate to hold/ decrease dose of home narcotics and neuropsychotropic medications until patient mentation back to baseline. Appropriate to hold home antiplatelet Rx given hematuria and new onset thrombocytopenia Pt improving, resuming home meds as appropriate, restarted asa and plavix and cont. to monitor. Resume the rest of home meds on discharge. Total Time Total Time Spent Total Time Spent (In Minutes): 40 Discharge Plan Discharge Items Patient Disposition: Transfer Acute Care Hospital Reason For Visit: SEPTIC SHOCK Discharge Diagnosis: Septic shock E. coli bacteremia UTI, catheter associated Hematuria JESÚS Thrombocytopenia Activity: Per Instructions section Non-emergency contact: Primary Care Provider and Urologist Call non-emergency contact if: you have any medication questions and your symptoms worsen Follow-up/Referrals: Jimmy Gama MD [Primary Care Provider] - Diet: Carb Consistent or DM2 Diet Texture: Easy to Chew Addtl Attending Provider Instructions: Follow up with your primary care physician, urologist and orthopedic surgeon. Finish antibiotic (Bactrim DS) as prescribed. Also recommend taking probiotic for next several days and magnesium supplement. Pending Studies at Discharge: Yes Studies:: final results of repeat blood cultures Stand-Alone Forms: My [facility] Skilled Items Patient informed of condition?: Yes DNR: No Discharge Level of Care: Acute rehab Communicable Disease: No Discharge Prognosis: Stable Lines: None Urinary Catheter: Yes Medications and DC Order Prescriptions: New magnesium oxide 400 mg (241.3 mg magnesium) Tablet 400 mg PO BID Qty: 7 0RF sulfamethoxazole-trimethoprim [Bactrim DS] 800-160 mg tablet 1 tab PO BID 9 Days Qty: 18 0RF Advanced Probiotic 625 mg (10 billion cell) Capsule 2 cap PO DAILY Qty: 10 0RF Continued losartan 100 mg tablet 100 mg PO DAILY nitroglycerin 0.4 mg tablet, sublingual 0.4 mg SL UD PRN (Reason: Chest Pain) Rx Instructions: 1 tablet under tongue as needed for chest pain.-may repeat dose every 5 minutes for up to 3 doses. if no relief after 3rd dose,call 911 metformin 1,000 mg tablet 1,000 mg PO QDB tamsulosin 0.4 mg capsule 0.4 mg PO DAILY atenolol 50 mg tablet 50 mg PO Q12 finasteride 5 mg tablet 5 mg PO DAILY clopidogrel 75 mg tablet 75 mg PO DAILY aspirin 81 mg Tablet,Delayed Release (Dr/Ec) 81 mg PO DAILY amitriptyline 50 mg tablet 50 mg PO HS gabapentin 300 mg capsule 300 mg PO BIDM Rx Instructions: take with breakfast and lunch ferrous sulfate 325 mg (65 mg iron) Tablet 325 mg PO DAILY docusate sodium 100 mg Capsule 100 mg PO BID pantoprazole 40 mg Tablet,Delayed Release (Dr/Ec) 40 mg PO HS gabapentin 300 mg capsule 600 mg PO HS sennosides [senna] 8.6 mg Tablet 17.2 mg PO HS Repatha Pushtronex 420 mg/3.5 mL wearable injector 420 mg SUBCUT MONTHLY Rx Instructions: inject 1 syringe on the 1st monthly Saline Mist 0.65 % Aerosol,[place] 1 spray intranasal .EVERY 3 HOURS W/A Rx Instructions: 1 spray each nostril every 3 hours while awake for congestion ondansetron HCl 4 mg Tablet 4 mg PO Q4 PRN (Reason: nausea/vomiting) polyethylene glycol 3350 [Miralax] 17 gram/dose Powder 17 g PO DAILY PRN (Reason: Constipation) Afrin (oxymetazoline) 0.05 % Mist 2 spray INTRANASAL BID PRN (Reason: Nasal Congestion) sennosides-docusate sodium [Senna Plus] 8.6-50 mg Tablet 1 tab-cap PO .WITH LUNCH PRN (Reason: Constipation) oxycodone 5 mg Tablet 5 mg PO QID PRN (Reason: pain scale 7-10) naloxone 4 mg/actuation spray,non-aerosol 1 spray INTRANASAL UD PRN (Reason: Opioid Overdose) Rx Instructions: instill 1 spray into nostril as needed for opiod overdose-may repeat dose every 3 minutes forj no response ofr relapse, alternate nostrils,call 911 hydroxyzine pamoate 50 mg Capsule 50 mg PO QID PRN (Reason: Anxiety) Discharge Orders: Discharge Order (Routine); Ordered 04/01/23 Ordered By: Pedrito Fuentes/Other Patient Handouts: Managing Type 2 Diabetes Admission Data Admit Date/Time: 03/27/23 22:07 Attending Provider: Pedrito Vasquez Admit Provider: Ash Ibarra Primary Care Provider: Jimmy Gama Other Providers: Román Oscar; Ash Ibarra; Domingo Pascal; Deidra Baker; Jeferson Pedraza I.; Chepe Hodgson II; Hanh Quintero; Terrance Keys; Emir Huggins; Sandip Pan; Francis Crowell; Anuj Yang; [facility] Other Interventions: Discharge Summary Assessment (RN) Last Done: 04/01/23 11:03
== END 2023-04-01 16:31 | DRG 698 ==
LOC: ED 18:59 → SUATTDRO 22:07 → 1E 22:07 → 4W 03-30 02:48